=== PATIENT | male | born 1935 | race Caucasian/White ===

== ENCOUNTER 2016-11-24 09:22 | Emergency (ER) | payer MEDICARE, BC ==
--- NOTE | 2016-11-24 09:49 | ED ---
Lower Extremity Injury HPI - General Chief Complaint: Extremity Injury, Lower Stated Complaint: Fall Time Seen by Provider: 11/24/16 09:37 Source: patient, RN notes reviewed Mode of arrival: ambulatory Limitations: no limitations - History of Present Illness Initial Comments: Patient is an 81-year-old male presents to the emergency room for evaluation of right ankle pain and swelling. Patient states last Friday he slipped on the ice and twisted his right ankle. Patient states that he continued to walk on his ankle over the past week. Patient states that the pain is not getting any better. Patient states pain is worse when he puts weight on his right leg or moves his ankle from side to side. Patient denies any pain when he is elevating his leg or resting. Patient states he's been taking aspirin with little relief of symptoms. Patient denies any other injuries during incident. Patient denies head trauma, loss consciousness, neck pain, headache or dizziness. Patient denies any numbness or tingling in his toes. - Related Data Home Medications Medication Instructions Recorded Confirmed Aspirin 1 tab PO DAILY 11/24/16 11/24/16 Losartan [Cozaar] 1 tab PO DAILY 11/24/16 11/24/16 Allergies Allergy/AdvReac Type Severity Reaction Status Date / Time codeine AdvReac Unknown Verified 11/24/16 09:31 Penicillins AdvReac Unknown Verified 11/24/16 09:31 Review of Systems ROS Statement: Those systems with pertinent positive or pertinent negative responses have been documented in the HPI. ROS Other: All systems not noted in ROS Statement are negative. Past Medical History Past Medical History: No Reported History History of Any Multi-Drug Resistant Organisms: None Reported Past Surgical History: Appendectomy, Joint Replacement Additional Past Surgical History / Comment(s): anueurysm x2, aaa, kidney stones , cataract Past Psychological History: No Psychological Hx Reported Smoking Status: Former smoker Past Alcohol Use History: Occasional Past Drug Use History: None Reported General Exam - General Exam Comments Initial Comments: Sitting in exam room in no acute distress. Limitations: no limitations General appearance: alert, in no apparent distress Head exam: Present: atraumatic, normocephalic, normal inspection Eye exam: Present: normal appearance ENT exam: Present: normal exam Neck exam: Present: normal inspection Respiratory exam: Present: normal lung sounds bilaterally. Absent: respiratory distress Cardiovascular Exam: Present: regular rate, normal rhythm, normal heart sounds Right Foot/Toe exam: Present: full ROM, tenderness (Lateral malleolus), swelling ( Lateral malleolus), ecchymosis (Lateral malleolus). Absent: normal inspection Neurovascular tendon exam: Present: no vascular compromise. Absent: pulse deficit (2+ dorsal pedal and posterior tibial pulses), abnormal cap refill ( Capillary refill less than 2 seconds) Back exam: Present: normal inspection Neurological exam: Present: alert, oriented X3, CN II-XII intact Psychiatric exam: Present: normal affect, normal mood Skin exam: Present: warm, dry, intact, normal color. Absent: rash Course Vital Signs 11/24/16 09:32 Temperature 97.3 F L Pulse Rate 60 Respiratory 18 Rate Blood Pressure 186/71 Procedures - Orthopedic Splinting/Casting Injury #1 Side: right Lower Extremity Injury Location: ankle Lower Extremity Immobilizer: posterior splint (OCL posterior splint placed. 4 x 15". Neurovascular function assessed and intact.) Other Orthopedic Equipment: crutches Medical Decision Making - Medical Decision Making Patient is an 81-year-old male presents emergency room for evaluation of right ankle pain.Right ankle x-ray: Small bone fragments seen below the lateral malleolus, anterior to the tibiotalar joint and posterior to the distal tibia. Ligamentous avulsion fracture fragments are considered. There is underlying tibiotalar joint effusion and diffuse soft tissue swelling. 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 No acute osseous abnormality. (Per radiology). Patient placed in an OCL splint and advised to [id number] until follow-up with thoracic medicine specialist. Patient states he understands everything that was discussed with him. Return parameters discussed. Case discussed with Dr. Ayala. - Radiology Data Radiology results: report reviewed, image reviewed Disposition Clinical Impression: Avulsion fracture of distal fibula Disposition: HOME SELF-CARE Condition: Good Instructions: Avulsion Fracture (ED), Ankle Fracture (ED) Additional Instructions: Rest, elevate and ice on and off for 10-15 minutes for the next 24-48 hours. Do not get splint wet. Do not remove splint until follow-up with thoracic medicine specialist. Do not put weight on right leg. Take Tylenol or Motrin as needed for pain. Please follow-up with thoracic medicine specialist on Friday. If new symptoms develop or symptoms worsen, please return to the ER. Referrals: Jassi Perez MD [Primary Care Provider] - 1-2 days Santiago Bryan DO [Doctor of Osteopathic Medicine] - 1-2 days Time of Disposition: 10:58
--- NOTE | 2016-11-24 10:48 | XR ---
EXAMINATION TYPE: XR ankle complete 3 views RT, XR foot complete 3 views RT DATE OF EXAM: 11/24/2016 10:24 AM COMPARISON: NONE HISTORY: 81-year-old male with pain FINDINGS: Ankle: There is small bony fragments measuring 3 mm below the lateral malleolus, tiny fragments measuring up to 2 mm, anteriorly, 6 mm bone fragment seen posteriorly. Underlying tibiotalar joint effusion. Ther e is preservation of the distal tibiofibular overlap. Small plantar calcaneal spur. Foot: Hallux valgus deformity with moderate degenerative change at the first MTP joint. Hammertoe deformiti es are also present. No acute fracture or dislocation. IMPRESSION: 1. Small bone fragments seen below the lateral malleolus (3 mm), anterior to the tibiotalar joint (2 mm), and posterior to the distal tibia (6 mm). Ligamentous avulsion fracture fragments are considered . 2. There is underlying tibiotalar joint effusion and diffuse soft tissue swelling. 3. 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 No acute osse ous abnormality.
[2016-11-24 11:11] VITALS: BP 184/76; PULSE 51; RESP 16; TEMP 97.2
== END 2016-11-24 11:10 | disposition home or self-care (01) ==
LOC: EC 09:22
DX: S82.491A Other fracture of shaft of right fibula, initial encounter for closed fracture (principal); Z79.899 Other long term (current) drug therapy; Z79.82 Long term (current) use of aspirin; Z88.0 Allergy status to penicillin; Z88.5 Allergy status to narcotic agent; Z87.891 Personal history of nicotine dependence; W00.0XXA Fall on same level due to ice and snow, initial encounter
CPT/HCPCS: 29515; 99284

== ENCOUNTER → 2018-10-05 | Outpatient (CLI) | payer MEDICARE, BC ==
--- NOTE | 2018-10-05 09:15 | US ---
EXAMINATION TYPE: US duplex aorta DATE OF EXAM: 10/05/2018 COMPARISON: NONE CLINICAL HISTORY: I71.4 Abdominal aortic aneurysm, without rupture. h/o AAA and surgical repair dista lly EXAM MEASUREMENTS: Abdominal Aorta: Proximal: 2.1 x 2.2cm Mid: not seen Distal: 3.0 x 3.2cm Bifurcation: 0.9cm 1.0cm Limited views due to bowel gas IMPRESSION: The exam is slightly limited secondary to overlying bowel gas as the mid abdominal aorta is not visualized. Distal abdominal aortic aneurysm measures 3.0 x 3.2 cm and terminates at the aorto iliac bifurcation. No extent into the common iliac vasculature. CTA could assess for endoleak in this patient with prior surgically repaired abdominal aortic aneurysm.
== END ==
LOC: RADUSWWP 07:44
PROVIDERS: ATTEND Family Medicine
DX: I71.4 Abdominal aortic aneurysm, without rupture (principal)
CPT/HCPCS: 93979

== ENCOUNTER → 2019-07-15 | Outpatient (CLI) | payer MEDICARE, BC ==
[~2019-07-15] MED LIST: REGADENOSON 0.4 MG/5 ML SYRINGE IV ONE
--- NOTE | 2019-07-15 12:13 | NM ---
EXAMINATION TYPE: NM stress lexiscan cardiolite DATE OF EXAM: 07/15/2019 COMPARISON: NONE HISTORY: Abnormal EKG TECHNIQUE: After the intravenous administration of 10.04 mCi Tc 99m Sestamibi - Cardiolite resting S PECT images acquired 45 minutes post injection. The patient received 0.4mg Lexiscan, 24.3 mCi Tc 99m Sestamibi - Stress images obtained [address] injection FINDINGS: Review of stress and rest SPECT images demonstrates no distinct perfusion abnormality. Gated analysi s shows normal wall motion with an estimated left ventricular ejection fraction of 63 %. IMPRESSION: No scintigraphic evidence for reversible ischemia.
--- NOTE | 2019-07-15 13:03 | EST ---
EXERCISE STRESS DATE OF SERVICE: 07/15/2019 AGE: 84 SEX: Male HT: 6'0" WT: 180 pounds PROTOCOL: Lexiscan Cardiolite STAGE: DURATION OF EXERCISE: HEART RATE REST: 44 BLOOD PRESSURE REST: 152/96 MAXIMUM HEART RATE ACHIEVED: 60 MAXIMUM BLOOD PRESSURE: 152/96 85% MPHR: 100% MPHR: METS: INDICATIONS: Chest pain. CLINICAL INFORMATION: STRESS DATA: Heart rate 44, pressure is 152/96 mmHg. Baseline EKG showed sinus mechanism. The 0.4 mg of Lexiscan given over 15 seconds per protocol. Max heart rate was 60 beats per minute and maximum pressure was 152/96 mmHg. Clinically the patient did not have any symptoms of chest pain or discomfort and the EKG did not show any significant ST or T-wave abnormalities concerning for ischemia. CONCLUSION: 1. Nondiagnostic electrocardiogram stress testing in response to Lexiscan. 2. Please follow up on the Cardiolite portion on a separate report from Radiology Department. MMODL / IJN: [id number] /
== END | disposition home or self-care (01) ==
LOC: RADNMMAIN 08:00
PROVIDERS: ATTEND Family Medicine
DX: R94.31 Abnormal electrocardiogram [ECG] [EKG] (principal)
CPT/HCPCS: 93017; 78452; A9500; J2785

== ENCOUNTER 2019-12-27 18:09 | Observation (INO) | payer MEDICARE, BC ==
[2019-12-27] MEDS ORDERED: NITROGLYCERIN OINT 1 INCH/GM PACKET TOPICAL STA (18:25)
[2019-12-27] MEDS ORDERED: ASPIRIN 81 MG PO STA (18:25)
--- NOTE | 2019-12-27 18:28 | ED ---
Chest Pain HPI - General Chief Complaint: Chest Pain Stated Complaint: left arm pain Time Seen by Provider: 12/27/19 18:19 Source: patient, family Mode of arrival: ambulatory Limitations: no limitations - History of Present Illness Initial Comments: This 84-year-old white male presents with a complaint of some left arm pain. This is described as a an achiness. This was into his shoulder going down his entire left arm and radiating up into his left jaw. He denies any chest pain but did have some mild shortness of breath. This occurred shortly prior to arrival and lasted approximately 30 minutes and has now resolved. He denies any known previous cardiac disease. His last stress test was approximately 7 years ago. He's never had a heart catheterization. He relates that he was told by his primary doctor that he may have had a heart attack in the past per his EKG. He denies any leg pain or calf swelling. No other complaints or modifying factors. - Related Data Home Medications Medication Instructions Recorded Confirmed Losartan [Cozaar] 50 mg PO DAILY 11/24/16 12/27/19 Acetaminophen Tab [Tylenol] 325 mg PO Q8H PRN 12/27/19 12/27/19 Brinzolamide/Brimonidine Tart 1 drop BOTH EYES BID 12/27/19 12/27/19 [Simbrinza 1%-0.2% Eye Drops] Ibuprofen [Motrin Ib] 200 mg PO Q8H PRN 12/27/19 12/27/19 Allergies Allergy/AdvReac Type Severity Reaction Status Date / Time codeine AdvReac Unknown Verified 12/27/19 18:50 Penicillins AdvReac Unknown Verified 12/27/19 18:50 Review of Systems ROS Statement: Those systems with pertinent positive or pertinent negative responses have been documented in the HPI. ROS Other: All systems not noted in ROS Statement are negative. Past Medical History Past Medical History: Hypertension, Myocardial Infarction ([place]) Additional Past Medical History / Comment(s): AAA REPAIR, KIDNEY STONES, History of Any Multi-Drug Resistant Organisms: None Reported Past Surgical History: Appendectomy, Joint Replacement, Orthopedic Surgery Additional Past Surgical History / Comment(s): anueurysm x2, aaa, kidney stones, cataract, BILATERAL KNEE REPLACEMENT Past Psychological History: No Psychological Hx Reported Smoking Status: Former smoker Past Alcohol Use History: Occasional Past Drug Use History: None Reported General Exam - General Exam Comments Initial Comments: GENERAL: The patient is well nourished and well hydrated. VITAL SIGNS: Heart rate, blood pressure, respiratory rate reviewed as recorded in nurse's notes. EYES: Pupils are round and reactive. Extraocular movements are intact. No conjunctival / lid redness or swelling. ENT: No external evidence of injury, swelling, or ecchymosis. Airway is patent. Throat is clear. NECK: Nontender. No swelling or evidence of injury. No subcutaneous emphysema. Trachea is midline. No thyroid mass. HEART: Regular rate and rhythm. Good peripheral pulses. LUNGS/CHEST: Breath sounds clear and equal bilaterally. No rales, rhonchi, or wheezes. No ecchymosis, subcutaneous emphysema, or tenderness. ABDOMEN: Abdomen soft without tenderness. No palpable masses or organomegaly. No peritoneal signs. No abdominal wall swelling or ecchymosis. EXTREMITIES: No extremity tenderness. Normal muscle tone and function. No thoracolumbar tenderness. NEUROLOGIC: Sensation is grossly intact. Cranial nerve exam reveals face is symmetrical, tongue is midline, speech is clear. SKIN: No abrasions or ecchymosis is noted. No induration or masses noted. PSYCHIATRIC: Alert and oriented. Appropriate behavior and judgment. Limitations: no limitations Course Vital Signs 12/27/19 12/27/19 12/27/19 18:11 19:01 20:00 Temperature 97.7 F Pulse Rate 79 56 L Pulse Rate [ 52 L Staff Psychologist ] Respiratory 16 18 Rate Blood Pressure 127/79 191/95 O2 Sat by Pulse 95 96 Oximetry 12/27/19 20:02 Temperature 98.0 F Pulse Rate 50 L Pulse Rate [ Staff Psychologist ] Respiratory 20 Rate Blood Pressure 176/87 O2 Sat by Pulse 98 Oximetry Chest Pain MDM - MDM The patient was seen and examined. All diagnostics are reviewed and IV is established. He received some aspirin as well as some Nitropaste placed. He is placed on the monitor technician no ectopy is identified. The EKG shows a normal sinus rhythm at a rate of 78. There is a left anterior fascicular block. There are also some left ventricular hypertrophy. There is a possible old anterior infarct. There is no acute ST-T wave changes noted. The CO intervals 176, respiration is 118, and the QTC intervals 466. The laboratory is reviewed and overall is unremarkable. The chest x-ray did not show any acute abnormalities. He is in no pain on recheck. Overall, it is felt as though he would benefit from admission to the hospital. He relates that the last time he had a stress test was approximately 7 years ago. It is felt as though his left shoulder and jaw pain certainly could be related to some unstable angina. An addition, his blood pressure is elevated and he receives 20 mg of labetalol IV. The case is discussed with Dr. Perez and he is agreeable with admission as well. Disposition Clinical Impression: Left arm pain, Unstable angina, Hypertensive crisis Disposition: ADMITTED IP TO THIS [facility] Condition: Fair Is patient prescribed a controlled substance at d/c from ED?: No Time of Disposition: 21:38 Decision Date: 12/27/19 Decision Time: 21:38
[2019-12-27 19:09] LABS: Basophils % (A) 1 %; Eosinophils # (A) 0.3 k/uL (0-0.7); Eosinophils % (A) 8 %; HCT 38.9 % (39.0-53.0); HGB 12.7 gm/dL (13.0-17.5); Lymphocytes # (A) 0.9 k/uL (1.0-4.8); Lymphocytes % (A) 21 %; MCH 29.9 pg (25.0-35.0); MCHC 32.7 g/dL (31.0-37.0); MCV 91.5 fL (80.0-100.0); Mean Platelet Volume 7.4; Monocytes # (A) 0.3 k/uL (0-1.0); Monocytes % (A) 7 %; Neutrophils # (A) 2.5 k/uL (1.3-7.7); Neutrophils % (A) 61 %; Platelet Count 195 k/uL (150-450); RBC 4.25 m/uL (4.30-5.90); RDW 13.7 % (11.5-15.5); WBC 4.2 k/uL (3.8-10.6)
[2019-12-27 19:23] LABS: Albumin 3.7 g/dL (3.5-5.0); Calcium 8.8 mg/dL (8.4-10.2); Potassium 4.2 mmol/L (3.5-5.1); Total Bilirubin 0.5 mg/dL (0.2-1.3); Total Protein 6.4 g/dL (6.3-8.2)
[2019-12-27 19:39] LABS: INR 0.9 (<1.2); Partial Thromboplastin Time 23.2 sec (22.0-30.0); Prothrombin Time 9.8 sec (9.0-12.0)
--- NOTE | 2019-12-27 19:47 | XR ---
EXAMINATION TYPE: XR chest 2V DATE OF EXAM: 12/27/2019 COMPARISON: 04/16/2012 HISTORY: Rib pain TECHNIQUE: FINDINGS: There is large hiatal hernia. Lungs are clear of infiltrate. Thoracic aorta is atheromatous . There are chest leads. There is no evidence of pleural effusion. There is mild anterior wedging of T7 vertebra 25%. IMPRESSION: Large hiatal hernia. Mild compression fracture T7 is a change compared to old exam. Dee l heart.
[2019-12-27] MEDS ORDERED: hydrALAZINE HCL 20 MG/ML 1 ML VIAL IVP PRN (22:00)
[2019-12-27] MEDS ORDERED: NITROGLYCERIN SL TABS 0.4 MG TAB SUBLINGUAL PRN (22:00)
[2019-12-27] MEDS ORDERED: ACETAMINOPHEN TAB 325 MG TAB PO PRN (22:30)
[2019-12-28] MEDS: NITROGLYCERIN OINT 1 INCH/GM PACKET TOPICAL SCH ×3 (03:59→13:05)
[2019-12-28] MEDS ORDERED: IBUPROFEN 200 MG TAB PO PRN (06:00)
[2019-12-28 07:01] LABS: Cholesterol 165 mg/dL (<200); HDL Cholesterol 36 mg/dL (40-60); LDL Cholesterol,Calculated 118 mg/dL (0-99); Triglycerides 53 mg/dL (<150)
[2019-12-28] MEDS ORDERED: DORZOLAMIDE HCL 2% DROPS 10 ML BTL BOTH EYES SCH (09:00)
[2019-12-28] MEDS ORDERED: ASPIRIN 325 MG TAB PO SCH (09:00)
[2019-12-28] MEDS ORDERED: ENOXAPARIN 40 MG/0.4 ML SYRINGE SQ SCH (09:00)
[2019-12-28] MEDS ORDERED: METOPROLOL TARTRATE 25 MG TAB PO SCH (09:00)
[2019-12-28] MEDS ORDERED: BRIMONIDINE TARTRATE 0.2% DROPS 5 ML BTL BOTH EYES SCH (09:00)
[2019-12-28] MEDS: LOSARTAN 50 MG TAB PO SCH (09:16)
--- NOTE | 2019-12-28 11:00 | ECHOF ---
Referral Reason:cp MEASUREMENTS -------- HEIGHT: 182.9 cm WEIGHT: 79.4 kg BP: 136/78 RVIDd: 3.2 cm (< 3.3) IVSd: 1.2 cm (0.6 - 1.1) LVIDd: 5.0 cm (3.9 - 5.3) LVPWd: 1.5 cm (0.6 - 1.1) IVSs: 1.5 cm LVIDs: 3.9 cm LVPWs: 1.4 cm LA Diam: 5.5 cm (2.7 - 3.8) LAESV Index (A-L): 42.37 ml/m Ao Diam: 3.2 cm (2.0 - 3.7) AV Cusp: 1.6 cm (1.5 - 2.6) MV EXCURSION: 18.742 mm (> 18.000) MV EF SLOPE: 49 mm/s (70 - 150) EPSS: 0.3 cm MV E Fuentes: 0.61 m/s MV DecT: 285 ms MV A Fuentes: 0.85 m/s MV E/A Ratio: 0.72 RAP: 5.00 mmHg RVSP: 38.58 mmHg FINDINGS -------- Sinus rhythm. This was a technically good study. The left ventricular size is normal. There is mild concentric left ventricular hypertrophy. Overa ll left ventricular systolic function is low-normal with, an EF between 50 - 55 %. The diastolic fi lling pattern is normal for the age of the patient 12.21. The right ventricle is normal in size. The left atrium is markedly dilated. LA is severely dilated >40 ml/m2 The right atrial size is normal. There is mild aortic valve sclerosis. There is no evidence of aortic regurgitation. Mild mitral annular calcification present. Mild mitral regurgitation is present. Mild tricuspid regurgitation present. There is mild pulmonary hypertension. The right ventricular systolic pressure, as measured by Doppler, is 38.58mmHg. There is no pulmonic regurgitation present. The aortic root size is normal. There is no pericardial effusion. CONCLUSIONS -------- 1. Sinus rhythm. 2. This was a technically good study. 3. The left ventricular size is normal. 4. There is mild concentric left ventricular hypertrophy. 5. Overall left ventricular systolic function is low-normal with, an EF between 50 - 55 %. 6. The diastolic filling pattern is normal for the age of the patient 12.21 7. The right ventricle is normal in size. 8. The left atrium is markedly dilated. 9. LA is severely dilated >40 ml/m2 10. The right atrial size is normal. 11. There is mild aortic valve sclerosis. 12. Mild mitral annular calcification present. 13. Mild mitral regurgitation is present. 14. Mild tricuspid regurgitation present. 15. There is mild pulmonary hypertension. 16. The right ventricular systolic pressure, as measured by Doppler, is 38.58mmHg. 17. There is no pulmonic regurgitation present. 18. The aortic root size is normal. 19. There is no pericardial effusion. ESCROW SECRETARY: Kelly Harris RDCS
--- NOTE | 2019-12-28 13:24 | P.CRDCN ---
History of Present Illness History of present illness: This is Tierra Neal PA-C dictating a consult on this patient The patient was interviewed and examined by me as well as by Dr. Land Case discussed with Dr. Land and he agrees with the plan of care HPI Patient is an 84-year-old male with a history of hypertension, AAA status post surgical repair, and former smoker who presented with complaints of arm pain. 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 He states that for the last 3 days he has had intermittent left arm pain. He describes it as an achiness. Denies any radiation. He could not identify any triggering or relieving factors. He does admit to associated "heavy breathing". No chest pain. He has had disco mfort like this before but it has never been this severe. He has never sought evaluation and treatment for it before. The pain became more severe than it had been in the past and he presented for evaluation. Upon presentation his pulse was in the 60s and his blood pressure was 186/71. EKG shows sinus mechanism with left anterior fascicular block, LVH, no acute ST or T-wave abnormalities. Chest x-ray shows a large hiatal hernia, mild compression fracture of T7. Echocardiogram shows LV systolic function low normal, EF 50-55%. Troponins negative 3. Patient seen and examined resting in bed. States his arm pain has resolved he would like to go home. Denies any chest pain or shortness of breath currently. He denies any history of diabetes or dyslipidemia He is a former smoker and quit years ago ROS: No fevers, chills or rigors, no cough, phlegm or expectoration, no nausea, vomiting or diarrhea, no hematuria, dysuria, Positive for left arm pain no strokes or seizures, no skin lesions. EXAMINATION: Patient is afebrile, pulse in the 50s, respirations 18, blood pressure 147/67, oxygen saturation 97% on room air Patient seen and examined resting in bed, in no acute distress Lungs are clear to auscultation bilaterally Heart sounds are soft, heart is regular, no audible murmurs No elevated JVD No lower extremity edema REVIEW OF LABS, ECG & MEDICAL DATA WBC 4.2, hemoglobin 12.7, platelets 195, potassium 4.2, BUN 23, creatinine 0.96 Troponin negative 3 LDL 118 Lexiscan stress test in July 2019 was negative for reversible ischemia IMPRESSION / ASSESSMENT: Intermittent left arm discomfort with associated shortness of breath, no acute changes on EKG, troponins negative 3, currently pain-free Hypertension, blood pressure has been elevated Dyslipidemia Former smoker AAA status post surgical repair Echocardiogram showing EF 50-55% PLAN: Start atorvastatin 40 mg daily Increase losartan to 75 mg daily Patient is clear for discharge from a cardiac standpoint with outpatient follow- up Past Medical History Past Medical History: Hypertension, Myocardial Infarction ([place]) Additional Past Medical History / Comment(s): AAA REPAIR, KIDNEY STONES, History of Any Multi-Drug Resistant Organisms: None Reported Past Surgical History: Appendectomy, Joint Replacement, Orthopedic Surgery Additional Past Surgical History / Comment(s): anueurysm x2, aaa, kidney stones, cataract, BILATERAL KNEE REPLACEMENT Past Psychological History: No Psychological Hx Reported Smoking Status: Former smoker Past Alcohol Use History: Occasional Past Drug Use History: None Reported Medications and Allergies Home Medications Medication Instructions Recorded Confirmed Type Losartan [Cozaar] 50 mg PO DAILY 11/24/16 12/27/19 History Acetaminophen Tab [Tylenol] 325 mg PO Q8H PRN 12/27/19 12/27/19 History Brinzolamide/Brimonidine Tart 1 drop BOTH EYES BID 12/27/19 12/27/19 History [Simbrinza 1%-0.2% Eye Drops] Ibuprofen [Motrin Ib] 200 mg PO Q8H PRN 12/27/19 12/27/19 History Allergies Allergy/AdvReac Type Severity Reaction Status Date / Time codeine AdvReac Unknown Verified 12/27/19 18:50 Penicillins AdvReac Unknown Verified 12/27/19 18:50 Physical Exam Vitals: Vital Signs Temp Pulse Pulse Resp BP Pulse Ox 12/28/19 09:30 54 L 147/67 97 12/28/19 09:00 55 L 148/70 97 12/28/19 08:30 55 L 154/71 97 12/28/19 08:00 53 L 96 12/28/19 07:30 51 L 164/80 96 12/28/19 07:29 97.9 F 56 L 18 164/80 97 12/28/19 05:33 97.6 F 54 L 18 136/74 96 12/28/19 02:45 56 L 20 130/63 96 12/28/19 02:00 54 L 20 142/90 95 12/28/19 01:00 54 L 20 126/53 96 12/28/19 00:00 52 L 20 142/60 95 12/27/19 23:49 52 L 12/27/19 23:47 20 12/27/19 23:38 56 L 20 155/75 98 12/27/19 22:51 58 L 20 158/78 97 12/27/19 22:15 60 18 187/97 95 12/27/19 20:02 98.0 F 50 L 20 176/87 98 12/27/19 20:00 52 L 12/27/19 19:01 56 L 18 191/95 96 12/27/19 18:11 97.7 F 79 16 127/79 95 Intake and Output 12/27/19 12/28/19 12/28/19 22:59 06:59 14:59 Output Total 600 Balance -600 Output: Urine 600 Other: Weight 79.379 kg Results 12/27/19 18:50 12/27/19 18:50 Cardiac Enzymes 12/27/19 12/27/19 12/27/19 Range/Units 18:50 18:50 18:50 WBC 4.2 (3.8-10.6) k/uL RBC 4.25 L (4.30-5.90) m/uL Hgb 12.7 L (13.0-17.5) gm/dL Hct 38.9 L (39.0-53.0) % MCV 91.5 (80.0-100.0) fL MCH 29.9 (25.0-35.0) pg MCHC 32.7 (31.0-37.0) g/dL RDW 13.7 (11.5-15.5) % Plt Count 195 (150-450) k/uL Neutrophils % 61 % Lymphocytes % 21 % Monocytes % 7 % Eosinophils % 8 % Basophils % 1 % Neutrophils # 2.5 (1.3-7.7) k/uL Lymphocytes # 0.9 L (1.0-4.8) k/uL Monocytes # 0.3 (0-1.0) k/uL Eosinophils # 0.3 (0-0.7) k/uL Basophils # 0.0 (0-0.2) k/uL PT 9.8 (9.0-12.0) sec INR 0.9 (<1.2) APTT 23.2 (22.0-30.0) sec Sodium 142 (137-145) mmol/L Potassium 4.2 (3.5-5.1) mmol/L Chloride 109 H (98-107) mmol/L Carbon Dioxide 25 (22-30) mmol/L Anion Gap 8 mmol/L BUN 23 H (9-20) mg/dL Creatinine 0.96 (0.66-1.25) mg/dL Est GFR (CKD-EPI)AfAm 85 (>60 ml/min/1.73 sqM) Est GFR (CKD-EPI)NonAf 73 (>60 ml/min/1.73 sqM) Glucose 101 H (74-99) mg/dL Calcium 8.8 (8.4-10.2) mg/dL Magnesium 2.0 (1.6-2.3) mg/dL Total Bilirubin 0.5 (0.2-1.3) mg/dL AST 22 (17-59) U/L ALT 12 (4-49) U/L Alkaline Phosphatase 107 (38-126) U/L Troponin I (0.000-0.034) ng/mL Total Protein 6.4 (6.3-8.2) g/dL Albumin 3.7 (3.5-5.0) g/dL Triglycerides (<150) mg/dL Cholesterol (<200) mg/dL LDL Cholesterol, Calc (0-99) mg/dL HDL Cholesterol (40-60) mg/dL 12/27/19 12/28/19 12/28/19 Range/Units 18:50 01:46 06:28 WBC (3.8-10.6) k/uL RBC (4.30-5.90) m/uL Hgb (13.0-17.5) gm/dL Hct (39.0-53.0) % MCV (80.0-100.0) fL MCH (25.0-35.0) pg MCHC (31.0-37.0) g/dL RDW (11.5-15.5) % Plt Count (150-450) k/uL Neutrophils % % Lymphocytes % % Monocytes % % Eosinophils % % Basophils % % Neutrophils # (1.3-7.7) k/uL Lymphocytes # (1.0-4.8) k/uL Monocytes # (0-1.0) k/uL Eosinophils # (0-0.7) k/uL Basophils # (0-0.2) k/uL PT (9.0-12.0) sec INR (<1.2) APTT (22.0-30.0) sec Sodium (137-145) mmol/L Potassium (3.5-5.1) mmol/L Chloride (98-107) mmol/L Carbon Dioxide (22-30) mmol/L Anion Gap mmol/L BUN (9-20) mg/dL Creatinine (0.66-1.25) mg/dL Est GFR (CKD-EPI)AfAm (>60 ml/min/1.73 sqM) Est GFR (CKD-EPI)NonAf (>60 ml/min/1.73 sqM) Glucose (74-99) mg/dL Calcium (8.4-10.2) mg/dL Magnesium (1.6-2.3) mg/dL Total Bilirubin (0.2-1.3) mg/dL AST (17-59) U/L ALT (4-49) U/L Alkaline Phosphatase (38-126) U/L Troponin I <0.012 <0.012 <0.012 (0.000-0.034) ng/mL Total Protein (6.3-8.2) g/dL Albumin (3.5-5.0) g/dL Triglycerides (<150) mg/dL Cholesterol (<200) mg/dL LDL Cholesterol, Calc (0-99) mg/dL HDL Cholesterol (40-60) mg/dL 12/28/19 Range/Units 06:28 WBC (3.8-10.6) k/uL RBC (4.30-5.90) m/uL Hgb (13.0-17.5) gm/dL Hct (39.0-53.0) % MCV (80.0-100.0) fL MCH (25.0-35.0) pg MCHC (31.0-37.0) g/dL RDW (11.5-15.5) % Plt Count (150-450) k/uL Neutrophils % % Lymphocytes % % Monocytes % % Eosinophils % % Basophils % % Neutrophils # (1.3-7.7) k/uL Lymphocytes # (1.0-4.8) k/uL Monocytes # (0-1.0) k/uL Eosinophils # (0-0.7) k/uL Basophils # (0-0.2) k/uL PT (9.0-12.0) sec INR (<1.2) APTT (22.0-30.0) sec Sodium (137-145) mmol/L Potassium (3.5-5.1) mmol/L Chloride (98-107) mmol/L Carbon Dioxide (22-30) mmol/L Anion Gap mmol/L BUN (9-20) mg/dL Creatinine (0.66-1.25) mg/dL Est GFR (CKD-EPI)AfAm (>60 ml/min/1.73 sqM) Est GFR (CKD-EPI)NonAf (>60 ml/min/1.73 sqM) Glucose (74-99) mg/dL Calcium (8.4-10.2) mg/dL Magnesium (1.6-2.3) mg/dL Total Bilirubin (0.2-1.3) mg/dL AST (17-59) U/L ALT (4-49) U/L Alkaline Phosphatase (38-126) U/L Troponin I (0.000-0.034) ng/mL Total Protein (6.3-8.2) g/dL Albumin (3.5-5.0) g/dL Triglycerides 53 (<150) mg/dL Cholesterol 165 (<200) mg/dL LDL Cholesterol, Calc 118 H (0-99) mg/dL HDL Cholesterol 36 L (40-60) mg/dL Coagulation 12/27/19 Range/Units 18:50 PT 9.8 (9.0-12.0) sec APTT 23.2 (22.0-30.0) sec Lipids 12/28/19 Range/Units 06:28 Triglycerides 53 (<150) mg/dL Cholesterol 165 (<200) mg/dL HDL Cholesterol 36 L (40-60) mg/dL CBC 12/27/19 Range/Units 18:50 WBC 4.2 (3.8-10.6) k/uL RBC 4.25 L (4.30-5.90) m/uL Hgb 12.7 L (13.0-17.5) gm/dL Hct 38.9 L (39.0-53.0) % Plt Count 195 (150-450) k/uL Comprehensive Metabolic Panel 12/27/19 Range/Units 18:50 Sodium 142 (137-145) mmol/L Potassium 4.2 (3.5-5.1) mmol/L Chloride 109 H (98-107) mmol/L Carbon Dioxide 25 (22-30) mmol/L BUN 23 H (9-20) mg/dL Creatinine 0.96 (0.66-1.25) mg/dL Glucose 101 H (74-99) mg/dL Calcium 8.8 (8.4-10.2) mg/dL AST 22 (17-59) U/L ALT 12 (4-49) U/L Alkaline Phosphatase 107 (38-126) U/L Total Protein 6.4 (6.3-8.2) g/dL Albumin 3.7 (3.5-5.0) g/dL Current Medications Generic Name Dose Route Start Last Admin Trade Name Freq PRN Reason Stop Dose Admin Acetaminophen 325 mg 12/27/19 22:30 Tylenol Tab PO Q8H PRN Pain Aspirin 325 mg 12/28/19 09:00 12/28/19 09:17 Aspirin PO 325 mg DAILY [facility] Administration Atorvastatin Calcium 40 mg 12/28/19 21:00 Lipitor PO HS [facility] Brimonidine Tartrate 1 drops 12/28/19 09:00 Alphagan P 0.2% Ophth Soln BOTH EYES BID [facility] Dorzolamide HCl 1 drops 12/28/19 09:00 Trusopt BOTH EYES BID [facility] Enoxaparin Sodium 40 mg 12/28/19 09:00 12/28/19 09:15 Lovenox SQ 40 mg DAILY [facility] Administration Hydralazine HCl 10 mg 12/27/19 22:00 12/27/19 22:18 Apresoline IVP 10 mg Q4H PRN Administration Hypertension Ibuprofen 200 mg 12/28/19 06:00 Advil PO Q8H PRN Pain Losartan Potassium 75 mg 12/29/19 09:00 Cozaar PO DAILY [facility] Metoprolol Tartrate 25 mg 12/28/19 09:00 12/28/19 09:16 Lopressor PO 25 mg BID [facility] Administration Nitroglycerin 0.4 mg 12/27/19 22:00 Nitrostat SUBLINGUAL Q5M PRN Chest Pain Nitroglycerin 1 inch 12/28/19 00:00 12/28/19 08:21 Nitro-Bid Oint TOPICAL Not Given Q6HR MAURA Intake and Output 12/27/19 12/28/19 12/28/19 22:59 06:59 14:59 Output Total 600 Balance -600 Output: Urine 600 Other: Weight 79.379 kg 12/27/19 18:50 12/27/19 18:50
[2019-12-28 15:51] VITALS: BP 137/85; RESP 16
--- NOTE | 2019-12-28 16:30 | P.HPIM ---
History of Present Illness 84-year-old male presented the emergency room with complaints of left arm pain after discussion with family was convinced go to the emergency room. Troponins have been negative 3 echo low normal EF 50-55%. Patient also has hypertension patient has history of coronary disease with [place] Review of Systems Cardiovascular: Reports chest pain Past Medical History Past Medical History: Eye Disorder, Hypertension, Myocardial Infarction ([place]), Osteoarthritis (OA), Prostate Disorder, Renal Disease, Vascular Disorder Additional Past Medical History / Comment(s): AAA with repair x2, nephrolithiasis with surgical removals, [place] age unknown-found on EKG, BPH, arthritis bilateral knees with surgery, bilateral glaucoma Last Myocardial Infarction Date:: unkn History of Any Multi-Drug Resistant Organisms: None Reported Past Surgical History: Appendectomy, Joint Replacement, Tonsillectomy Additional Past Surgical History / Comment(s): AAA repair x2, surgeries for kidney stone removals, bilateral cataract removals, colonoscopies, bilateral total knee replacements. Past Anesthesia/Blood Transfusion Reactions: No Reported Reaction Smoking Status: Former smoker - Past Family History Father Family Medical History: Myocardial Infarction ([place]) Additional Family Medical History / Comment(s): Father had a [place] in his 70s. Mother Family Medical History: Musculoskeletal Disorder, Neurologic Disorder Additional Family Medical History / Comment(s): Mother had parkinsons. Medications and Allergies Home Medications Medication Instructions Recorded Confirmed Type Losartan [Cozaar] 50 mg PO DAILY 11/24/16 12/27/19 History Acetaminophen Tab [Tylenol] 325 mg PO Q8H PRN 12/27/19 12/27/19 History Brinzolamide/Brimonidine Tart 1 drop BOTH EYES BID 12/27/19 12/27/19 History [Simbrinza 1%-0.2% Eye Drops] Ibuprofen [Motrin Ib] 200 mg PO Q8H PRN 12/27/19 12/27/19 History Allergies Allergy/AdvReac Type Severity Reaction Status Date / Time codeine AdvReac Unknown Verified 12/27/19 18:50 Penicillins AdvReac Unknown Verified 12/27/19 18:50 Physical Exam Vitals: Vital Signs Temp Pulse Pulse Resp BP Pulse Ox 12/28/19 15:50 59 L 16 137/85 98 12/28/19 14:02 55 L 18 169/72 98 12/28/19 13:00 53 L 17 174/80 98 12/28/19 12:00 51 L 18 166/79 97 12/28/19 11:00 50 L 17 148/69 97 12/28/19 10:00 52 L 18 163/82 96 12/28/19 09:30 54 L 147/67 97 12/28/19 09:00 55 L 148/70 97 12/28/19 08:30 55 L 154/71 97 12/28/19 08:00 53 L 96 12/28/19 07:30 51 L 164/80 96 12/28/19 07:29 97.9 F 56 L 18 164/80 97 12/28/19 05:33 97.6 F 54 L 18 136/74 96 12/28/19 02:45 56 L 20 130/63 96 12/28/19 02:00 54 L 20 142/90 95 12/28/19 01:00 54 L 20 126/53 96 12/28/19 00:00 52 L 20 142/60 95 12/27/19 23:49 52 L 12/27/19 23:47 20 12/27/19 23:38 56 L 20 155/75 98 12/27/19 22:51 58 L 20 158/78 97 12/27/19 22:15 60 18 187/97 95 12/27/19 20:02 98.0 F 50 L 20 176/87 98 12/27/19 20:00 52 L 12/27/19 19:01 56 L 18 191/95 96 12/27/19 18:11 97.7 F 79 16 127/79 95 Intake and Output 12/28/19 12/28/19 12/28/19 06:59 14:59 22:59 Output Total 600 Balance -600 Output: Urine 600 Other: Weight 79.379 kg - Constitutional General appearance: mild distress - EENT Eyes: PERRLA Ears: bilateral: normal - Neck Neck: normal ROM - Respiratory Respiratory: bilateral: CTA - Cardiovascular Rhythm: regular - Gastrointestinal General gastrointestinal: normal bowel sounds, soft - Integumentary Integumentary: normal - Neurologic Neurologic: CNII-XII intact - Psychiatric Psychiatric: A&O x's 3, appropriate affect, intact judgment & insight Results CBC & Chem 7: 12/27/19 18:50 12/27/19 18:50 Labs: Abnormal Lab Results - Last 24 Hours (Table) 12/27/19 12/27/19 12/28/19 Range/Units 18:50 18:50 06:28 RBC 4.25 L (4.30-5.90) m/uL Hgb 12.7 L (13.0-17.5) gm/dL Hct 38.9 L (39.0-53.0) % Lymphocytes # 0.9 L (1.0-4.8) k/uL Chloride 109 H (98-107) mmol/L BUN 23 H (9-20) mg/dL Glucose 101 H (74-99) mg/dL LDL Cholesterol, Calc 118 H (0-99) mg/dL HDL Cholesterol 36 L (40-60) mg/dL Chest x-ray: report reviewed Thrombosis Risk Factor Assmnt - Choose All That Apply Any of the Below Risk Factors Present?: Yes Other Risk Factors: Yes Each Risk Factor Represents 3 Points: Age 75 years or older Other congenital or acquired thrombophilia - If yes, enter type in comment: No Thrombosis Risk Factor Assessment Total Risk Factor Score: 3 Thrombosis Risk Factor Assessment Level: Moderate Risk Assessment and Plan Plan: Assessment Left arm pain angina Hypertensive crisis history of hypertension Glaucoma History of coronary disease with [place] Hiatal hernia Plan Cardiology consultation
--- NOTE | 2019-12-28 16:37 | P.DS ---
Providers Date of admission: 12/27/19 21:39 Expected date of discharge: 12/28/19 Attending physician: Jassi Perez Consults: 12/27/19 21:39 Consult Physician Urgent Consulting Provider: Love Marion Consult Reason/Comments: cp, htn Do you want consulting provider notified?: Yes Primary care physician: Jassi Perez [facility] Course: [facility] male presented to the emergency room with complaints of left arm pain was encouraged by family to come the emergency room. Patient was found to be hypertensive medication adjusted. Patient was seen by cardiology echo low normal 50-55% ejection fraction patient was cleared by cardiology for discharge Assessment Left arm pain angina troponins negative 3 History of glaucoma Hypertension history with hypertensive crisis Coronary disease history of [place] Hiatal hernia Plan Follow-up with cardiology and family physician Dr.Aaron Perez Patient Condition at Discharge: Fair Plan - Discharge Summary Discharge Rx Participant: No New Discharge Prescriptions: New Aspirin 325 mg PO DAILY tab Losartan [Cozaar] 75 mg PO DAILY #90 tab Atorvastatin [Lipitor] 40 mg PO HS #30 tab Metoprolol Tartrate [Lopressor] 25 mg PO BID #60 tab Dorzolamide 2% [Trusopt 2%] 1 drops BOTH EYES BID ml Continue Acetaminophen Tab [Tylenol] 325 mg PO Q8H PRN PRN Reason: Pain Brinzolamide/Brimonidine Tart [Simbrinza 1%-0.2% Eye Drops] 1 drop BOTH EYES BID Discontinued Losartan [Cozaar] 50 mg PO DAILY Ibuprofen [Motrin Ib] 200 mg PO Q8H PRN PRN Reason: Pain Discharge Medication List Acetaminophen Tab [Tylenol] 325 mg PO Q8H PRN 12/27/19 [History] Brinzolamide/Brimonidine Tart [Simbrinza 1%-0.2% Eye Drops] 1 drop BOTH EYES BID 12/27/19 [History] Aspirin 325 mg PO DAILY tab 12/28/19 [Rx] Atorvastatin [Lipitor] 40 mg PO HS #30 tab 12/28/19 [Rx] Dorzolamide 2% [Trusopt 2%] 1 drops BOTH EYES BID ml 12/28/19 [Rx] Losartan [Cozaar] 75 mg PO DAILY #90 tab 12/28/19 [Rx] Metoprolol Tartrate [Lopressor] 25 mg PO BID #60 tab 12/28/19 [Rx] Follow up Appointment(s)/Referral(s): Max Land MD [STAFF PHYSICIAN] - 1 Week (Follow-up with Tierra Neal PA-C on January 11 at 8:30 AM)
[2019-12-28 17:10] VITALS: PULSE 30; TEMP 98
[2019-12-28] MEDS ORDERED: ATORVASTATIN 40 MG TAB PO SCH (21:00)
[2019-12-29] MEDS ORDERED: LOSARTAN 25 MG TAB PO SCH (09:00)
== END 2019-12-28 16:55 | disposition home or self-care (01) ==
LOC: EC 18:09 → 1SOBS 21:39
PROVIDERS: ADMIT Family Medicine; ATTEND Family Medicine
DX: I25.119 Atherosclerotic heart disease of native coronary artery with unspecified angina pectoris (principal); I10 Essential (primary) hypertension; M79.602 Pain in left arm; I25.2 Old myocardial infarction; Z87.442 Personal history of urinary calculi; Z87.891 Personal history of nicotine dependence; H40.9 Unspecified glaucoma; K44.9 Diaphragmatic hernia without obstruction or gangrene; Z96.653 Presence of artificial knee joint, bilateral; Z90.49 Acquired absence of other specified parts of digestive tract; I08.1 Rheumatic disorders of both mitral and tricuspid valves; Z79.1 Long term (current) use of non-steroidal anti-inflammatories (NSAID); Z79.899 Other long term (current) drug therapy; Z88.0 Allergy status to penicillin; Z88.5 Allergy status to narcotic agent
CPT/HCPCS: 96372; 96374; 99285; 36415; 93005 ×2; 93306; 80061; 80053; 83735; 84484 ×2; 85025; 85610; 85730; 71046; G0378 ×2; J0360; J1650

== ENCOUNTER 2021-04-15 13:26 | Emergency (ER) | payer MEDICARE, BC ==
[2021-04-15] MEDS ORDERED: DIPH,PERTUS(ACELL)TETVAC-LF 0.5 ML VIAL IM ONE (13:31)
[2021-04-15] MEDS ORDERED: SODIUM CHLORIDE 0.9% 500 ML 500 ML IV STA (13:31)
--- NOTE | 2021-04-15 13:37 | ED ---
General Adult HPI - General Stated complaint: Tractor roll over Time Seen by Provider: 04/15/21 13:26 Source: patient, RN notes reviewed, old records reviewed - History of Present Illness Initial comments: This is an 86-year-old male presents emergency Department after having rolled over his tractor that weighs about 6500 pounds. According to the patient and EMS under came around and hit him in the abdomen and he did complain of lower and upper abdominal pain and a little bit of rib pain bilaterally. Patient denies hitting his head patient denies any neck pain. Patient denies any numbness weakness. Patient denies any leg pain or arm pain. Patient denies any chest pain or difficulty breathing or shortness of breath. - Related Data Home Medications Medication Instructions Recorded Confirmed Aspirin EC [Ecotrin Low Dose] 81 mg PO DAILY 04/15/21 04/15/21 Brimonidine Tartrate/Timolol 1 drop BOTH EYES BID 04/15/21 04/15/21 [Combigan 0.2%-0.5% Eye Drops] Losartan [Cozaar] 50 mg PO DAILY 04/15/21 04/15/21 Loteprednol Etabonate [Lotemax 1 dose LEFT EYE BID 04/15/21 04/15/21 Ophth Oint] Previous Rx's Medication Instructions Recorded Atorvastatin [Lipitor] 40 mg PO HS #30 tab 12/28/19 Allergies Allergy/AdvReac Type Severity Reaction Status Date / Time codeine AdvReac Unknown Verified 04/15/21 14:36 Penicillins AdvReac Unknown Verified 04/15/21 14:36 Review of Systems ROS Statement: Those systems with pertinent positive or pertinent negative responses have been documented in the HPI. ROS Other: All systems not noted in ROS Statement are negative. Past Medical History Past Medical History: Eye Disorder, Hypertension, Myocardial Infarction ([place]), Osteoarthritis ([place]), Prostate Disorder, Renal Disease, Vascular Disorder Additional Past Medical History / Comment(s): AAA with repair x2, nephrolithiasis with surgical removals, [place] age unknown-found on EKG, BPH, arthritis bilateral knees with surgery, bilateral glaucoma Last Myocardial Infarction Date:: unkn History of Any Multi-Drug Resistant Organisms: None Reported Past Surgical History: Appendectomy, Joint Replacement, Tonsillectomy Additional Past Surgical History / Comment(s): AAA repair x2, surgeries for kidney stone removals, bilateral cataract removals, colonoscopies, bilateral total knee replacements. Past Anesthesia/Blood Transfusion Reactions: No Reported Reaction Past Psychological History: No Psychological Hx Reported Additional Psychological History / Comment(s): Pt resides alone. He uses no assistive device. He drives. Past Alcohol Use History: Occasional Additional Past Alcohol Use History / Comment(s): Pt started smoking in 1962 and quit in 1982. Past Drug Use History: None Reported - Past Family History Father Family Medical History: Myocardial Infarction ([place]) Additional Family Medical History / Comment(s): Father had a [place] in his 70s. Mother Family Medical History: Musculoskeletal Disorder, Neurologic Disorder Additional Family Medical History / Comment(s): Mother had parkinsons. General Exam - General Exam Comments Initial Comments: GENERAL: Patient is well-developed and well-nourished. Patient is nontoxic and well- hydrated and is in mild distress. ENT: Neck is soft and supple. No significant lymphadenopathy is noted. Oropharynx is clear. Moist mucous membranes. Neck has full range of motion without eliciting any pain. EYES: The sclera were anicteric and conjunctiva were pink and moist. Extraocular movements were intact and pupils were equal round and reactive to light. Eyelids were unremarkable. PULMONARY: Unlabored respirations. Good breath sounds bilaterally. No audible rales rhonc hi or wheezing was noted. CARDIOVASCULAR: There is a regular rate and rhythm without any murmurs gallops or rubs. Patient has tenderness to the right lateral ribs in the left lateral rib cage. ABDOMEN: Patient has abdominal tenderness in the right upper and left upper abdomen. SKIN: Patient has a superficial abrasion to the anterior distal aspect of the leg and a smaller one to the proximal medial aspect of the leg on the left. NEUROLOGIC: Patient is alert and oriented x3. Cranial nerves II through XII are grossly intact. Motor and sensory are also intact. Normal speech, volume and content. Symmetrical smile. MUSCULOSKELETAL: Normal extremities with adequate strength and full range of motion. Patient is full range of motion of all 4 extremities. On palpation of his back he had some left flank tenderness just above the iliac crest on the left. LYMPHATICS: No significant lymphadenopathy is noted PSYCHIATRIC: Normal psychiatric evaluation. Course Vital Signs 04/15/21 13:26 Temperature 99.2 F Pulse Rate 52 L Respiratory 18 Rate Blood Pressure 181/80 O2 Sat by Pulse 96 Oximetry Medical Decision Making - Medical Decision Making EKG shows sinus bradycardia 52 bpm MS interval 176 QRS is 108 QT interval is 48 QTC is 453 per patient's EKG shows no ST segment elevation or depression. CT of the chest abdomen pelvis showed no acute abnormality. Patient was able to ambulate without problem. Patient had no complaints and wanted to be discharged home. - Lab Data Result diagrams: 04/15/21 13:25 04/15/21 13:25 Lab Results 04/15/21 04/15/21 04/15/21 Range/Units 13:25 13:25 13:25 WBC 6.8 (3.8-10.6) k/uL RBC 4.18 L (4.30-5.90) m/uL Hgb 13.5 (13.0-17.5) gm/dL Hct 38.4 L (39.0-53.0) % MCV 91.8 (80.0-100.0) fL MCH 32.2 (25.0-35.0) pg MCHC 35.1 (31.0-37.0) g/dL RDW 13.1 (11.5-15.5) % Plt Count 155 (150-450) k/uL MPV 7.1 Neutrophils % 79 % Lymphocytes % 10 % Monocytes % 6 % Eosinophils % 2 % Basophils % 1 % Neutrophils # 5.4 (1.3-7.7) k/uL Lymphocytes # 0.7 L (1.0-4.8) k/uL Monocytes # 0.4 (0-1.0) k/uL Eosinophils # 0.2 (0-0.7) k/uL Basophils # 0.0 (0-0.2) k/uL PT 10.6 (9.0-12.0) sec INR 1.0 (<1.2) APTT 21.8 L (22.0-30.0) sec Sodium 139 (137-145) mmol/L Potassium 4.2 (3.5-5.1) mmol/L Chloride 109 H (98-107) mmol/L Carbon Dioxide 24 (22-30) mmol/L Anion Gap 6 mmol/L BUN 25 H (9-20) mg/dL Creatinine 1.29 H (0.66-1.25) mg/dL Est GFR (CKD-EPI)AfAm 58 (>60 ml/min/1.73 sqM) Est GFR (CKD-EPI)NonAf 50 (>60 ml/min/1.73 sqM) Glucose 105 H (74-99) mg/dL POC Glucose (mg/dL) (75-99) mg/dL POC Glu Price Clerk ID Calcium 9.1 (8.4-10.2) mg/dL Total Bilirubin 0.9 (0.2-1.3) mg/dL AST 27 (17-59) U/L ALT 18 (4-49) U/L Alkaline Phosphatase 72 (38-126) U/L Troponin I (0.000-0.034) ng/mL Total Protein 6.2 L (6.3-8.2) g/dL Albumin 3.6 (3.5-5.0) g/dL Serum Alcohol <10 mg/dL Blood Type Blood Type Confirm Blood Type Recheck Bld Type Recheck Status Antibody Screen Spec Expiration Date 04/15/21 04/15/21 04/15/21 Range/Units 13:25 13:25 13:29 WBC (3.8-10.6) k/uL RBC (4.30-5.90) m/uL Hgb (13.0-17.5) gm/dL Hct (39.0-53.0) % MCV (80.0-100.0) fL MCH (25.0-35.0) pg MCHC (31.0-37.0) g/dL RDW (11.5-15.5) % Plt Count (150-450) k/uL MPV Neutrophils % % Lymphocytes % % Monocytes % % Eosinophils % % Basophils % % Neutrophils # (1.3-7.7) k/uL Lymphocytes # (1.0-4.8) k/uL Monocytes # (0-1.0) k/uL Eosinophils # (0-0.7) k/uL Basophils # (0-0.2) k/uL PT (9.0-12.0) sec INR (<1.2) APTT (22.0-30.0) sec Sodium (137-145) mmol/L Potassium (3.5-5.1) mmol/L Chloride (98-107) mmol/L Carbon Dioxide (22-30) mmol/L Anion Gap mmol/L BUN (9-20) mg/dL Creatinine (0.66-1.25) mg/dL Est GFR (CKD-EPI)AfAm (>60 ml/min/1.73 sqM) Est GFR (CKD-EPI)NonAf (>60 ml/min/1.73 sqM) Glucose (74-99) mg/dL POC Glucose (mg/dL) 98 (75-99) mg/dL POC Glu Price Clerk ID Nikky Smith Calcium (8.4-10.2) mg/dL Total Bilirubin (0.2-1.3) mg/dL AST (17-59) U/L ALT (4-49) U/L Alkaline Phosphatase (38-126) U/L Troponin I <0.012 (0.000-0.034) ng/mL Total Protein (6.3-8.2) g/dL Albumin (3.5-5.0) g/dL Serum Alcohol mg/dL Blood Type O Negative Blood Type Confirm Blood Type Recheck No Previous Record Bld Type Recheck Status CABO Indicated Antibody Screen NEGATIVE Spec Expiration Date 04/18/2021 - 232404/15/21 Range/Units 13:30 WBC (3.8-10.6) k/uL RBC (4.30-5.90) m/uL Hgb (13.0-17.5) gm/dL Hct (39.0-53.0) % MCV (80.0-100.0) fL MCH (25.0-35.0) pg MCHC (31.0-37.0) g/dL RDW (11.5-15.5) % Plt Count (150-450) k/uL MPV Neutrophils % % Lymphocytes % % Monocytes % % Eosinophils % % Basophils % % Neutrophils # (1.3-7.7) k/uL Lymphocytes # (1.0-4.8) k/uL Monocytes # (0-1.0) k/uL Eosinophils # (0-0.7) k/uL Basophils # (0-0.2) k/uL PT (9.0-12.0) sec INR (<1.2) APTT (22.0-30.0) sec Sodium (137-145) mmol/L Potassium (3.5-5.1) mmol/L Chloride (98-107) mmol/L Carbon Dioxide (22-30) mmol/L Anion Gap mmol/L BUN (9-20) mg/dL Creatinine (0.66-1.25) mg/dL Est GFR (CKD-EPI)AfAm (>60 ml/min/1.73 sqM) Est GFR (CKD-EPI)NonAf (>60 ml/min/1.73 sqM) Glucose (74-99) mg/dL POC Glucose (mg/dL) (75-99) mg/dL POC Glu Price Clerk ID Calcium (8.4-10.2) mg/dL Total Bilirubin (0.2-1.3) mg/dL AST (17-59) U/L ALT (4-49) U/L Alkaline Phosphatase (38-126) U/L Troponin I (0.000-0.034) ng/mL Total Protein (6.3-8.2) g/dL Albumin (3.5-5.0) g/dL Serum Alcohol mg/dL Blood Type Blood Type Confirm O Negative Blood Type Recheck Bld Type Recheck Status Antibody Screen Spec Expiration Date Disposition Clinical Impression: Accident caused by farm tractor, Abdominal contusion, Chest wall contusion, Abrasion of left leg Disposition: HOME SELF-CARE Condition: Good Instructions (If sedation given, give patient instructions): Contusion in Adults (ED), Abrasion (ED) Is patient prescribed a controlled substance at d/c from ED?: No Referrals: Jassi Perez MD [Primary Care Provider] - 1-2 days Time of Disposition: 14:55
[2021-04-15 13:47] LABS: Glucose,Whole Blood 98 mg/dL (75-99)
[2021-04-15 13:52] LABS: ALT 18 U/L (4-49); AST 27 U/L (17-59); African American GFR (CKD) 58 (>60 ml/min/1.73 sqM); Albumin 3.6 g/dL (3.5-5.0); Alcohol <10 mg/dL; Alkaline Phosphatase 72 U/L (38-126); Anion Gap 6 mmol/L; Blood Urea Nitrogen 25 mg/dL (9-20); Calcium 9.1 mg/dL (8.4-10.2); Carbon Dioxide 24 mmol/L (22-30); Chloride 109 mmol/L (98-107); Glucose 105 mg/dL (74-99); Non-African American GFR(CKD) 50 (>60 ml/min/1.73 sqM); Potassium 4.2 mmol/L (3.5-5.1); Sodium 139 mmol/L (137-145); Total Bilirubin 0.9 mg/dL (0.2-1.3); Total Protein 6.2 g/dL (6.3-8.2)
--- NOTE | 2021-04-15 13:53 | XR ---
EXAMINATION TYPE: XR chest 1V portable DATE OF EXAM: 04/15/2021 COMPARISON: NONE HISTORY: Pain TECHNIQUE: Single frontal view of the chest is obtained. FINDINGS: Heart size prominent is left lower lobe consolidation with small effusion. No pneumothorax or interstitial edema. Atherosclerotic change aorta. Large hiatal hernia suspected. IMPRESSION: 1. Large hiatal hernia with left basilar atelectasis favored over pneumonia.
--- NOTE | 2021-04-15 13:55 | XR ---
EXAMINATION TYPE: XR pelvis AP view DATE OF EXAM: 04/15/2021 COMPARISON: NONE HISTORY: Pain The osseous structures are intact and severe arthropathy of the left hip and moderate arthropathy of the right hip. Correlate for bilateral acetabular femoral impingement. Surgical clips overlying the r ight femoral neck and there is degenerative change of the spine. SI joints symmetric.. No acute frac ture is seen. Visualized bowel gas pattern is nonspecific. IMPRESSION: 1. No acute fracture. 2. Bilateral hip arthropathy correlate for femoral acetabular impingement
[2021-04-15 13:58] LABS: Prothrombin Time 10.6 sec (9.0-12.0)
[2021-04-15 14:02] LABS: Partial Thromboplastin Time 21.8 sec (22.0-30.0)
[2021-04-15 14:12] LABS: Basophils % (A) 1 %; Eosinophils # (A) 0.2 k/uL (0-0.7); Eosinophils % (A) 2 %; HCT 38.4 % (39.0-53.0); HGB 13.5 gm/dL (13.0-17.5); Lymphocytes # (A) 0.7 k/uL (1.0-4.8); Lymphocytes % (A) 10 %; MCH 32.2 pg (25.0-35.0); MCHC 35.1 g/dL (31.0-37.0); MCV 91.8 fL (80.0-100.0); Mean Platelet Volume 7.1; Monocytes # (A) 0.4 k/uL (0-1.0); Monocytes % (A) 6 %; Neutrophils # (A) 5.4 k/uL (1.3-7.7); Neutrophils % (A) 79 %; Platelet Count 155 k/uL (150-450); RBC 4.18 m/uL (4.30-5.90); RDW 13.1 % (11.5-15.5); WBC 6.8 k/uL (3.8-10.6)
[2021-04-15 14:17] VITALS: BP 181/80; PULSE 52; RESP 18; TEMP 99.2
--- NOTE | 2021-04-15 14:20 | CT ---
EXAMINATION TYPE: CT ChestAbdPelvis w con DATE OF EXAM: 04/15/2021 COMPARISON: None HISTORY: Tractor roll over Pain CT DLP: 1121.9 mGycm Automated exposure control for dose reduction was used. CONTRAST: Performed with IV Contrast, patient injected with 100 mL of Isovue 300. Images obtained from the thoracic inlet to the floor the pelvis with IV contrast. The lungs are clear of consolidation. There is mild subsegmental atelectasis and interstitial density at the lung bases. There is no pneumothorax. Heart is enlarged. There is coronary artery calcificati on. Thoracic aorta is atheromatous. Aorta measures up to 3.5 cm. There is large hiatal hernia. There is no mediastinal adenopathy. There are no hilar masses. Liver and spleen are intact. There is no pancreatic mass. Gallbladder is intact. There is increased d ensity in the dependent gallbladder that could be gallstones. Stomach has normal size. There is no adrenal mass. Kidneys show normal contrast opacification. There is bilateral renal multip le parapelvic cysts. Delayed images show normal renal excretion. There is no hydronephrosis. There ar e multiple right-sided renal cortical cysts up to almost 5 cm. There is no retroperitoneal adenopathy . Abdominal aorta is atheromatous. Bladder distends smoothly. There is no inguinal hernia. There is n o free fluid in the pelvis. There are multiple sigmoid diverticula. There is no sign of diverticuliti s. There is no mesenteric edema. There is no ascites or free air. There is no bowel obstruction. The hip joints are intact. Sacroiliac joints are normal. Pelvic ring appears intact. I see no evidence of a rib fracture. Visualized shoulder joints appear intact. The thoracic and lumbar vertebra have normal alignment. There is 30% compression fracture of L1 verte bra that is probably old. There is slight wedging also of T7 and T6 vertebra up to 20%. This appears old. Sternum is intact. There is increased subcutaneous density over the lateral aspect of both hip j oints. IMPRESSION: No evidence of acute traumatic injury within the chest abdomen pelvis. Renal parapelvic cysts. Probable gallstones. Sigmoid diverticulosis. Old mild compression fractures in the thoracic and lumbar spine. Atherosclerotic vascular disease. Hi atal hernia.
== END 2021-04-15 15:48 | disposition home or self-care (01) ==
LOC: EC 13:26
DX: S30.1XXA Contusion of abdominal wall, initial encounter (principal); S20.213A Contusion of bilateral front wall of thorax, initial encounter; S80.812A Abrasion, left lower leg, initial encounter; I10 Essential (primary) hypertension; I21.9 Acute myocardial infarction, unspecified; M19.90 Unspecified osteoarthritis, unspecified site; Z87.891 Personal history of nicotine dependence; V84.5XXA Driver of special agricultural vehicle injured in nontraffic accident, initial encounter
CPT/HCPCS: 99284; 90471; 93005; 86900; 86901; 80053; 84484; 85025; 85610; 85730; 86850; 72170; 71045; 71260; 74177; 90715; G0480; Q9967; 80320

== ENCOUNTER → 2021-04-19 | Outpatient (CLI) | payer MEDICARE, BC ==
--- NOTE | 2021-04-19 15:59 | CT ---
EXAMINATION TYPE: CT chest wo con DATE OF EXAM: 04/19/2021 COMPARISON: 04/15/2021 HISTORY: Chest pain after tractor accident. CT DLP: 369 mGycm, Automated exposure control for dose reduction was used. CONTRAST: Performed injected with 0 mL of Isovue 300. TECHNIQUE: Axial images were obtained at 5 mm thick sections. Reconstructed images are reviewed on [employer] computer in the coronal plane. FINDINGS: Portion of the thyroid visualized is normal. There is a 0.5 cm nodule within the right middle lobe. Series 3 image 32. Additional nodule may be a long the mediastinal border measuring 0.6 cm. Series 3 image 34. No pneumothorax is evident. No enlarged mediastinal or hilar adenopathy is evident. The ascending aorta diameter at the level o f the main pulmonary artery is 3.8 cm. The main pulmonary artery diameter at the bifurcation is 2.7 cm. Moderate coronary artery calcification is present. There is a moderately large hiatal hernia pres ent. Limited CT sections are obtained through the upper abdomen. Abdomen is essentially unremarkable. Osseous structures: There is a compression deformity in the region of L1 of indeterminate age. Vacuum disc phenomenon noted thoracic spine there is an anterior wedge deformity in the region of T7. IMPRESSIONS: 1. Couple of small stable nodules right middle lobe. 2. Moderately large hiatal hernia. 3. Compression deformities of indeterminate age T7 and L1 4. No additional suspicious abnormalities account for chest pain post trauma.
--- NOTE | 2021-04-20 08:52 | XR ---
EXAMINATION TYPE: XR ankle complete LT DATE OF EXAM: 04/19/2021 COMPARISON: NONE HISTORY: Pain FINDINGS: Three views of the ankle demonstrate the ankle mortise to be intact and symmetric. The joint spaces are preserved. The osseous structures are intact. Diffuse soft tissue swelling. Well-corticated den sity inferior to lateral malleolus appears chronic. Calcaneal spurs and vascular calcifications noted . IMPRESSION: 1. No definite acute fracture or dislocation, if symptoms persist follow-up study in 7 to 10 days wou ld be suggested. 2. Diffuse soft tissue edema.
--- NOTE | 2021-04-20 08:58 | XR ---
EXAMINATION TYPE: XR tibia fibula LT DATE OF EXAM: 04/19/2021 COMPARISON: NONE HISTORY: Pain TECHNIQUE: Two views are submitted. FINDINGS: The osseous structures are intact. Postsurgical change involving the knee. Vascular calcifications an d calcaneal spur noted. Diffuse soft tissue edema greater on the ankle. IMPRESSION: 1. Diffuse soft tissue edema.
== END | disposition home or self-care (01) ==
LOC: RADCTMAIN 14:45
PROVIDERS: ATTEND Family Medicine
DX: R60.0 Localized edema (principal); S29.9XXA Unspecified injury of thorax, initial encounter; R91.8 Other nonspecific abnormal finding of lung field; K44.9 Diaphragmatic hernia without obstruction or gangrene
CPT/HCPCS: 71250

== ENCOUNTER 2021-05-03 17:48 | Emergency (ER) | payer MEDICARE, BC ==
[2021-05-03 17:58] VITALS: TEMP 97.8
--- NOTE | 2021-05-03 19:50 | CT ---
EXAMINATION TYPE: CT facial bones wo con DATE OF EXAM: 05/03/2021 COMPARISON: None HISTORY: Fall today with left sided eye injury. Pain. CT DLP: 522 mGycm Automated exposure control for dose reduction was used. TECHNIQUE: CT scan of the sinuses is performed without contrast, axial images are obtained, coronal r eformatted images are also reviewed. FINDINGS: There is cutaneous/subcutaneous soft tissue swelling over the left zygoma and left orbit. T here is no underlying acute fracture. The orbits and maxillary sinuses are intact. The anterior nasal sinuses and middle ear cavities and mastoid sinus air cells are all clear. The facial skeleton was negative for fracture or malalignment. No incidental findings. IMPRESSION: 1. Negative for acute fracture or malalignment. 2. Soft tissue swelling over the left zygoma and left orbit.
--- NOTE | 2021-05-03 19:54 | ED ---
Fall HPI - General Chief Complaint: Fall Stated Complaint: Fall/blood thinners Time Seen by Provider: 05/03/21 18:25 Source: patient, RN notes reviewed Mode of arrival: wheelchair - History of Present Illness Initial Comments: Patient is an 86-year-old male visiting emergency department status post fall around 2:30 this afternoon. He notes he was in the garden try to pull some weeds when he lost his balance and fell hitting his head. He notes that he does not take blood thinners. He notes his glasses dug into his nose and under his left eye. He notes that he was hoping the underside of his left eye with stick together and he wants home. His son brought him in for evaluation. Patient denied any pain or issues at this time. He denied any extraocular movement pain pain with moving his eye blurry vision. Patient was well-appearing well- hydrated 86-year-old male in no apparent distress or pain. He denied any chest pain short of breath headache nausea vomiting diarrhea constipation fever fatigue chills. - Related Data Home Medications Medication Instructions Recorded Confirmed Aspirin EC [Ecotrin Low Dose] 81 mg PO DAILY 04/15/21 04/15/21 Brimonidine Tartrate/Timolol 1 drop BOTH EYES BID 04/15/21 04/15/21 [Combigan 0.2%-0.5% Eye Drops] Losartan [Cozaar] 50 mg PO DAILY 04/15/21 04/15/21 Loteprednol Etabonate [Lotemax 1 dose LEFT EYE BID 04/15/21 04/15/21 Ophth Oint] Previous Rx's Medication Instructions Recorded Atorvastatin [Lipitor] 40 mg PO HS #30 tab 12/28/19 Sulfamethox-Tmp 800-160Mg [Bactrim 1 each PO Q12HR #20 tab 05/03/21 Ds] Allergies Allergy/AdvReac Type Severity Reaction Status Date / Time codeine AdvReac Unknown Verified 05/03/21 17:58 Penicillins AdvReac Unknown Verified 05/03/21 17:58 Review of Systems ROS Statement: Those systems with pertinent positive or pertinent negative responses have been documented in the HPI. ROS Other: All systems not noted in ROS Statement are negative. Past Medical History Past Medical History: Eye Disorder, Hypertension, Myocardial Infarction ([place]), Osteoarthritis ([place]), Prostate Disorder, Renal Disease, Vascular Disorder Additional Past Medical History / Comment(s): AAA with repair x2, nephrolithiasis with surgical removals, [place] age unknown-found on EKG, BPH, arthritis bilateral knees with surgery, bilateral glaucoma Last Myocardial Infarction Date:: unkn History of Any Multi-Drug Resistant Organisms: None Reported Past Surgical History: Appendectomy, Joint Replacement, Tonsillectomy Additional Past Surgical History / Comment(s): AAA repair x2, surgeries for kidney stone removals, bilateral cataract removals, colonoscopies, bilateral total knee replacements. Past Anesthesia/Blood Transfusion Reactions: No Reported Reaction Past Psychological History: No Psychological Hx Reported Smoking Status: Never smoker Past Alcohol Use History: Occasional Past Drug Use History: None Reported - Past Family History Father Family Medical History: Myocardial Infarction ([place]) Additional Family Medical History / Comment(s): Father had a [place] in his 70s. Mother Family Medical History: Musculoskeletal Disorder, Neurologic Disorder Additional Family Medical History / Comment(s): Mother had parkinsons. General Exam Limitations: no limitations General appearance: alert, in no apparent distress Head exam: Present: normocephalic, normal inspection. Absent: atraumatic (Patient has a laceration just inferior left eye from glasses due to falling. Well approximated.) Eye exam: Present: normal appearance, PERRL, EOMI, other (No pain with extraocular movements,). Absent: scleral icterus, conjunctival injection, periorbital swelling ENT exam: Present: other (small abrasion to the bridge of the nose) Neck exam: Present: normal inspection Respiratory exam: Present: normal lung sounds bilaterally. Absent: respiratory distress, wheezes, rales, rhonchi, stridor Cardiovascular Exam: Present: regular rate, normal rhythm, normal heart sounds. Absent: systolic murmur, diastolic murmur, rubs, gallop, clicks Extremities exam: Present: normal inspection, full ROM, normal capillary refill. Absent: tenderness, pedal edema, joint swelling, calf tenderness Neurological exam: Present: alert, oriented X3 Psychiatric exam: Present: normal affect, normal mood Skin exam: Present: warm, dry, intact, normal color. Absent: rash Course Vital Signs 05/03/21 17:53 Temperature 97.8 F Pulse Rate 61 Respiratory 18 Rate Blood Pressure 217/91 O2 Sat by Pulse 97 Oximetry Procedures - Laceration Laceration #1 Consent Obtained: verbal consent Indication: laceration Site: face (Left cheek inferior the eye) Size (cm): 3 Description: linear Depth: simple, single layer Type of Sutures: other (glue) Technique: other (glue) Patient Tolerated Procedure: well, no complications Medical Decision Making - Medical Decision Making Patient is an 86-year-old male that presents to emergency department complaining of left cheek laceration just inferior the left eye status post fall at 2:[address] of the facial bones ordered. Patient declined the need for any pain medication this time as he noted he was not painful. A she declined stitches after being offered and requested glue. Patient tolerated well, had full vision and laceration". Case discussed with Dr. Tyson, patient can discharge home in stable condition with follow-up to primary care. - Radiology Data Radiology results: report reviewed, image reviewed CT of the facial bones: Negative for acute fracture or malalignment. Soft tissue swelling over the left zygoma and left orbit. Disposition Clinical Impression: Laceration, Fall Disposition: HOME SELF-CARE Condition: Stable Instructions (If sedation given, give patient instructions): Fall Prevention for Older Adults (ED) Additional Instructions: Please return to the Emergency Department if symptoms worsen or any other concerns. Follow-up with primary care in several days. Take antibiotics as prescribed until complete. Skin glue should wear off of this several days. Can wash with warm water gentle soap. Is patient prescribed a controlled substance at d/c from ED?: No Referrals: Jassi Perez MD [Primary Care Provider] - 1-2 days Time of Disposition: 20:12
[2021-05-03] MEDS ORDERED: TOPICAL SKIN ADHESIVE 1 EACH AMP TOPICAL ONE (20:00)
[2021-05-03 20:31] VITALS: BP 186/82; PULSE 84; RESP 16
== END 2021-05-03 20:28 | disposition home or self-care (01) ==
LOC: EC 17:48
DX: S01.412A Laceration without foreign body of left cheek and temporomandibular area, initial encounter (principal); I10 Essential (primary) hypertension; I25.2 Old myocardial infarction; M79.11 Myalgia of mastication muscle; Z79.82 Long term (current) use of aspirin; Z79.899 Other long term (current) drug therapy; Z88.0 Allergy status to penicillin; Z88.5 Allergy status to narcotic agent; W18.39XA Other fall on same level, initial encounter; W25.XXXA Contact with sharp glass, initial encounter; Y92.89 Other specified places as the place of occurrence of the external cause
CPT/HCPCS: 12013; 70486; 99283

== ENCOUNTER → 2021-10-17 | Outpatient (CLI) | payer MEDICARE, BC ==
--- NOTE | 2021-10-17 09:51 | ECHOF ---
Referral Reason:R42 dizziness MEASUREMENTS -------- HEIGHT: 177.8 cm WEIGHT: 77.1 kg BP: IVSd: 1.5 cm (0.6 - 1.1) LVIDd: 4.4 cm (3.9 - 5.3) LVPWd: 1.6 cm (0.6 - 1.1) EDV(Teich): 88 ml IVSs: 2.3 cm LVIDs: 2.1 cm LVPWs: 2.0 cm %IVS Thck: 52 % ESV(Teich): 14 ml EF(Teich): 84 % %FS: 53 % SV(Teich): 74 ml RVIDd: 2.6 cm (< 3.3) IVC: 16.61 mm LALs A4C: 5.1 cm LAAs A4C: 16.7 cm LAESV A-L A4C: 46 ml LAESV MOD A4C: 45 ml LALs A2C: 5.3 cm LAAs A2C: 17.8 cm LAESV A-L A2C: 51 ml LAESV MOD A2C: 47 ml LAESV(A-L): 49 ml LAESV Index (A-L): 25.22 ml/m Ao Diam: 4.0 cm (2.0 - 3.7) LA Diam: 3.9 cm (2.7 - 3.8) AV Cusp: 1.9 cm (1.5 - 2.6) EPSS: 0.8 cm MV E Fuentes: 0.59 m/s MV DecT: 414 ms MV Dec Burt: 1.4 m/s MV A Fuentes: 0.72 m/s MV E/A Ratio: 0.81 MV PHT: 120 ms MR Vmax: 6.93 m/s MR maxP.91 mmHg AV Vmax: 1.33 m/s AV maxP.03 mmHg AR Vmax: 2.57 m/s AR maxP.32 mmHg AR PHT: 689 ms AR Dec Time: 2376 ms AR Dec Burt: 1.1 m/s TR Vmax: 2.81 m/s TR maxP.55 mmHg RAP: 5.00 mmHg RVSP: 36.55 mmHg MV EF SLOPE: 39.64 mm/s (70 - 150) MV EXCURSION: 29.15 mm (> 18.000) FINDINGS -------- This was a technically good study. The left ventricular size is normal. There is moderate concentric left ventricular hypertrophy. O verall left ventricular systolic function is normal with, an EF between 55 - 60 %. The diastolic fi lling pattern is normal for the age of the patient 25.04. The right ventricle is normal in size. The left atrial size is normal. Normal LA size by volume 22+/-6 ml/m2. The right atrial size is normal. Aortic valve is trileaflet and is mildly thickened. There is mild aortic regurgitation. The mitral valve is normal. The mitral valve leaflets are mildly thickened. Mild mitral regurgita tion is present. The tricuspid valve appears structurally normal. Mild tricuspid regurgitation present. There is m ild pulmonary hypertension. The right ventricular systolic pressure, as measured by Doppler, is 36. 55mmHg. The aortic root size is normal. Normal inferior vena cava with normal inspiratory collapse consistent with estimated right atrial pre ssure of 5 mmHg. There is no pericardial effusion. CONCLUSIONS -------- 1. The left ventricular size is normal. 2. There is moderate concentric left ventricular hypertrophy. 3. Overall left ventricular systolic function is normal with, an EF between 55 - 60 %. 4. The diastolic filling pattern is normal for the age of the patient 25.04 5. Aortic valve is trileaflet and is mildly thickened. 6. There is mild aortic regurgitation. 7. The mitral valve leaflets are mildly thickened. 8. Mild mitral regurgitation is present. 9. Mild tricuspid regurgitation present. 10. There is mild pulmonary hypertension. 11. The right ventricular systolic pressure, as measured by Doppler, is 36.55mmHg. 12. The aortic root size is normal. 13. There is no pericardial effusion. STOCKBROKING DEALER: Kylie Nathan, [facility]
--- NOTE | 2021-10-19 10:41 | P.HOLTER ---
24-hour Holter monitor shows sinus mechanism heart rates ranging from 42-90 beats a minute average 53 beats a minute Infrequent PACs and PVCs 1 short run of nonsustained atrial fibrillation lasting for 20 beats
== END | disposition home or self-care (01) ==
LOC: RADECHMAIN 07:42
PROVIDERS: ATTEND Family Medicine
DX: I08.3 Combined rheumatic disorders of mitral, aortic and tricuspid valves (principal); I27.20 Pulmonary hypertension, unspecified; I49.3 Ventricular premature depolarization; I49.1 Atrial premature depolarization
CPT/HCPCS: 93225; 93226; 93306

== ENCOUNTER → 2021-12-05 | Outpatient (CLI) | payer MEDICARE, BC ==
[~2021-12-05] MED LIST changes: +ACETAMINOPHEN TAB 500 MG TAB PO NR; +IMMUNE GLOBULIN (GAMMAGARD) 30 GM in EMPTY BAG 1 BAG IV NR; -REGADENOSON 0.4 MG/5 ML SYRINGE IV ONE; +SODIUM CHLORIDE 0.9% 500 ML 500 ML in EMPTY BAG 1 BAG IV PRN; +diphenhydrAMINE 50 MG/ML 1 ML VIAL IVP NR; +methylPREDNISolone SOD SUCCI 125 MG/2 ML VIAL IVP NR
[2021-12-05 09:53] VITALS: RESP 16; TEMP 97.4
[2021-12-05] MEDS: IMMUNE GLOBULIN (GAMMAGARD) 10 GM in EMPTY BAG 1 BAG IV NR ×2 (10:02→13:40)
[2021-12-05 10:15] LABS: Basophils % (A) 0 %; Eosinophils # (A) 0.1 k/uL (0-0.7); Eosinophils % (A) 1 %; HGB 12.9 gm/dL (13.0-17.5); Lymphocytes # (A) 0.4 k/uL (1.0-4.8); Lymphocytes % (A) 3 %; MCH 32.3 pg (25.0-35.0); MCHC 32.2 g/dL (31.0-37.0); MCV 100.1 fL (80.0-100.0); Macrocytosis Slight; Mean Platelet Volume 8.7; Monocytes # (A) 0.3 k/uL (0-1.0); Monocytes % (A) 3 %; Neutrophils # (A) 10.2 k/uL (1.3-7.7); Neutrophils % (A) 92 %; RBC 3.99 m/uL (4.30-5.90); RDW 14.1 % (11.5-15.5); WBC 11.1 k/uL (3.8-10.6)
[2021-12-05 10:43] LABS: Platelet Count 69 k/uL (150-450)
[2021-12-05 11:11] VITALS: PULSE 50
[2021-12-05 11:44] VITALS: BP 145/71
== END ==
LOC: PROCWHC3 09:30
PROVIDERS: ATTEND Internal Medicine Hematology & Oncology
DX: D69.3 Immune thrombocytopenic purpura (principal); Z87.891 Personal history of nicotine dependence; Z88.5 Allergy status to narcotic agent; Z88.0 Allergy status to penicillin
CPT/HCPCS: 85025; 96365; 96366; 96375; 36415; J1200; J2930; J1569 ×2

== ENCOUNTER 2022-04-04 06:24 | Day surgery (SDC) | payer MEDICARE, BC ==
[~2022-04-04 06:24] MED LIST changes: -ACETAMINOPHEN TAB 500 MG TAB PO NR; -IMMUNE GLOBULIN (GAMMAGARD) 30 GM in EMPTY BAG 1 BAG IV NR; +SODIUM CHLORIDE 0.9% 1,000 ML IV SCH; -SODIUM CHLORIDE 0.9% 500 ML 500 ML in EMPTY BAG 1 BAG IV PRN; -diphenhydrAMINE 50 MG/ML 1 ML VIAL IVP NR; -methylPREDNISolone SOD SUCCI 125 MG/2 ML VIAL IVP NR
[2022-04-04] MEDS ORDERED: SODIUM CHLORIDE 0.9% 500 ML 500 ML IV ONE (06:48)
[2022-04-04] MEDS ORDERED: CLINDAMYCIN 900 MG in DEXTROSE 5% IN WATER 50 ML IVPB PRN ×2 (07:00)
[2022-04-04 07:01] VITALS: RESP 16; TEMP 98.5
[2022-04-04] MEDS ORDERED: LIDOCAINE 2% (PF) 20 MG/ML 5 ML VIAL SQ ONE (07:54)
[2022-04-04] MEDS ORDERED: LIDOCAINE 1% INJ 10MG/ML (5 ML VIAL-PF) SQ ONE (07:54)
--- NOTE | 2022-04-04 08:16 | P.EPPROC ---
- EP Procedure Note Electrophysiology Procedure Note: Diagnosis Sick Sinus Syndrome Palpitations, nonsustained atrial tachycardia Loop monitor implant Primary physicians: Compress Engineer: Dr. Land Indication: Diagnosis of severe sick sinus syndrome and atrial fibrillation Patient was brought to the EP lab in a fasting state. Written informed consent was obtained prior to the procedure. The left pectoral area was prepped and draped per protocol. Intravenous antibiotic was administered preoperatively. A subcutaneous Loop monitor was implanted successfully and the wound was closed per protocol. The device was programmed to detect significant norris- arrhythmic and tachy-arrhythmic events, per protocol. Device and programming details: A. fib and sick sinus syndrome monitoring Patient underwent EP procedure under conscious sedation/moderate sedation, monitoring of the level of consciousness and physiologic parameters including bu t not limited to vital signs and oxygenation. Patient tolerated the procedure well without any acute complications. Start time: 753 Stop time: 805
--- NOTE | 2022-04-04 08:18 | P.PRLE ---
RE: Rolando Jessica Dear Jassi Marshall underwent implantation of loop monitor for evaluation for sick sinus syndrome and atrial fibrillation He tolerated the procedure well without any acute complications We will observe for any tachybradycardia arrhythmias during his dizzy spells Thank you for entrusting me with the care of the patient Warm regards Sincerely Max Land
[2022-04-04 08:22] VITALS: BP 170/80; PULSE 44
== END 2022-04-04 08:34 | disposition home or self-care (01) ==
LOC: CATHEP 06:24
PROVIDERS: ATTEND Internal Medicine Clinical Cardiac Electrophysiology
DX: I47.1 Supraventricular tachycardia (principal); I49.5 Sick sinus syndrome; I12.9 Hypertensive chronic kidney disease with stage 1 through stage 4 chronic kidney disease, or unspecified chronic kidney disease; N18.9 Chronic kidney disease, unspecified; I48.0 Paroxysmal atrial fibrillation; I71.4 Abdominal aortic aneurysm, without rupture; Z20.822 Contact with and (suspected) exposure to COVID-19; Z79.899 Other long term (current) drug therapy; Z79.82 Long term (current) use of aspirin; Z88.5 Allergy status to narcotic agent; Z88.0 Allergy status to penicillin; Z88.2 Allergy status to sulfonamides; Z87.442 Personal history of urinary calculi; Z82.49 Family history of ischemic heart disease and other diseases of the circulatory system
CPT/HCPCS: 33285; 87635; C1764; J2001 ×2

== ENCOUNTER 2022-06-01 01:25 | Emergency (ER) | payer MEDICARE, BC ==
[2022-06-01 01:45] VITALS: BP 137/69; PULSE 50; RESP 19; TEMP 98.6
--- NOTE | 2022-06-01 02:49 | ED ---
Fall HPI - General Chief Complaint: Fall Stated Complaint: Forehead Laceration Time Seen by Provider: 06/01/22 02:34 Source: patient, family Mode of arrival: ambulatory - History of Present Illness Initial Comments: This patient is an 87-year-old man who presents to have evaluation after he had a fall and lacerated his forehead. Patient denies other injuries. No loss consciousness. MD Complaint: fall -: hour(s) Fall From: standing When Fall Occurred: [address] Fall Occurred: home Loss of Consciousness: none Prolonged Down Time?: no Symptoms Prior to Fall: none Location: head Context: tripped/slipped - Related Data Home Medications Medication Instructions Recorded Confirmed Brimonidine Tartrate/Timolol 1 drop BOTH EYES BID 04/15/21 04/04/22 [Combigan 0.2%-0.5% Eye Drops] Losartan [Cozaar] 50 mg PO DAILY 04/15/21 04/04/22 Cyanocobalamin (Vitamin B-12) 1 tab SUBLINGUAL DAILY 12/05/21 04/03/22 [Vitamin B12] Spironolactone [Aldactone] 25 mg PO DAILY 12/05/21 04/04/22 amLODIPine [Norvasc] 5 mg PO DAILY 12/05/21 04/04/22 Previous Rx's Medication Instructions Recorded Atorvastatin [Lipitor] 40 mg PO HS #30 tab 12/28/19 Allergies Allergy/AdvReac Type Severity Reaction Status Date / Time Penicillins Allergy Rash/Hives Verified 06/01/22 01:45 Sulfa (Sulfonamide Allergy itching, Verified 06/01/22 01:45 Antibiotics) passed out, weak codeine AdvReac Rash/Hives Verified 06/01/22 01:45 Review of Systems ROS Statement: Those systems with pertinent positive or pertinent negative responses have been documented in the HPI. ROS Other: All systems not noted in ROS Statement are negative. Constitutional: Denies: fever, weakness Respiratory: Denies: cough, dyspnea Cardiovascular: Denies: chest pain, palpitations, edema Gastrointestinal: Denies: abdominal pain, vomiting, diarrhea Genitourinary: Denies: dysuria Musculoskeletal: Denies: back pain Skin: Denies: rash Neurological: Denies: headache, weakness, numbness, paresthesias Past Medical History Past Medical History: Atrial Fibrillation, Eye Disorder, Hypertension, Myocardial Infarction ([place]), Osteoarthritis (OA), Prostate Disorder, Renal Disease, Vascular Disorder Additional Past Medical History / Comment(s): AAA with repair x2, nephrolithiasis with surgical removals, [place] age unknown-found on EKG, BPH, arthritis bilateral knees with surgery, bilateral glaucoma, see Dr Land H & P,. ITP-IVIG INFUSIONS. Last Myocardial Infarction Date:: unkn History of Any Multi-Drug Resistant Organisms: None Reported Past Surgical History: Appendectomy, Joint Replacement, Tonsillectomy Additional Past Surgical History / Comment(s): AAA repair x2, surgeries for kidney stone removals, bilateral cataract removals, colonoscopies, bilateral total knee replacements. Past Anesthesia/Blood Transfusion Reactions: No Reported Reaction Past Psychological History: No Psychological Hx Reported Smoking Status: Former smoker Past Alcohol Use History: None Reported Past Drug Use History: None Reported - Past Family History Father Family Medical History: Myocardial Infarction ([place]) Additional Family Medical History / Comment(s): Father had a [place] in his 70s. Mother Family Medical History: Musculoskeletal Disorder, Neurologic Disorder Additional Family Medical History / Comment(s): Mother had parkinsons. General Exam General appearance: alert, in no apparent distress Head exam: Present: normocephalic, other (There is approximately 3 cm laceration between the eyebrows) Eye exam: Present: normal appearance, PERRL, EOMI. Absent: scleral icterus, conjunctival injection Neck exam: Present: normal inspection, full ROM. Absent: tenderness Respiratory exam: Absent: respiratory distress, wheezes, rales, rhonchi, stridor Cardiovascular Exam: Present: regular rate, normal rhythm. Absent: systolic murmur, diastolic murmur, rubs, gallop GI/Abdominal exam: Present: soft. Absent: distended, tenderness, guarding, rebound, mass Extremities exam: Present: normal inspection, normal capillary refill. Absent: pedal edema, calf tenderness Neurological exam: Present: alert, oriented X3. Absent: motor sensory deficit Skin exam: Present: warm, dry, normal color. Absent: intact, rash Course Vital Signs 06/01/22 01:40 Temperature 98.6 F Pulse Rate 50 L Respiratory 19 Rate Blood Pressure 137/69 O2 Sat by Pulse 98 Oximetry Procedures - Laceration Laceration #1 Consent Obtained: verbal consent Indication: laceration Site: face Description: linear Depth: simple, single layer Type of Sutures: other (Skin adhesive) Technique: other (Skin adhesive) Patient Tolerated Procedure: well, no complications Disposition Clinical Impression: Fall, Facial laceration Disposition: HOME SELF-CARE Condition: Good Instructions (If sedation given, give patient instructions): Facial Laceration (ED) Is patient prescribed a controlled substance at d/c from ED?: No Referrals: Jassi Perez MD [Primary Care Provider] - 1-2 days
[2022-06-01] MEDS ORDERED: TOPICAL SKIN ADHESIVE 1 EACH AMP TOPICAL ONE (03:28)
--- NOTE | 2022-06-01 03:53 | CT ---
EXAMINATION TYPE: CT brain wo con DATE OF EXAM: 06/01/2022 COMPARISON: None HISTORY: Ran into the corner of the wall, forehead laceration. CT DLP: 1184.4 mGycm Automated exposure control for dose reduction was used. There is cerebral cortical atrophy. There is hypodensity in the periventricular white matter. There i s no mass effect or midline shift. No evidence of intracranial hemorrhage. The calvarium is intact. T here is some mild left frontal scalp soft tissue swelling. There is normal aeration of the paranasal sinuses. IMPRESSION: Cerebral atrophy and chronic small vessel ischemia. Forehead scalp soft tissue swelling. No acute int racranial abnormality.
== END 2022-06-01 04:36 | disposition home or self-care (01) ==
LOC: EC 01:25
DX: S01.81XA Laceration without foreign body of other part of head, initial encounter (principal); I10 Essential (primary) hypertension; I21.9 Acute myocardial infarction, unspecified; M19.90 Unspecified osteoarthritis, unspecified site; Z86.73 Personal history of transient ischemic attack (TIA), and cerebral infarction without residual deficits; Z87.891 Personal history of nicotine dependence; Z88.0 Allergy status to penicillin; Z88.2 Allergy status to sulfonamides; Z88.5 Allergy status to narcotic agent; Z79.899 Other long term (current) drug therapy; W01.0XXA Fall on same level from slipping, tripping and stumbling without subsequent striking against object, initial encounter
CPT/HCPCS: 12013; 70450; 99284

== ENCOUNTER → 2022-08-08 | Outpatient (CLI) | payer MEDICARE, BC ==
[~2022-08-08] MED LIST changes: +ONDANSETRON 16 MG in SODIUM CHLORIDE 0.9% 50 ML IVPB ONE; +SODIUM CHLORIDE 0.9% 1,000 ML IV ONE; -SODIUM CHLORIDE 0.9% 1,000 ML IV SCH; +SODIUM CHLORIDE 0.9% 500 ML 500 ML in EMPTY BAG 1 BAG IV PRN
[2022-08-08 13:59] VITALS: BP 165/76; PULSE 52; RESP 16; TEMP 97.6
== END | disposition home or self-care (01) ==
LOC: PROCWHC3 13:45
PROVIDERS: ATTEND Internal Medicine
DX: R19.7 Diarrhea, unspecified (principal); E86.0 Dehydration
CPT/HCPCS: 96360; 96365; J2405

== ENCOUNTER → 2023-02-07 | Outpatient (CLI) | payer MEDICARE, BC ==
--- NOTE | 2023-02-07 12:01 | US ---
EXAMINATION TYPE: US venous doppler duplex LE DATE OF EXAM: 02/07/2023 11:53 AM COMPARISON: NONE CLINICAL HISTORY: R60.0 EDEMA. Swelling, bruising to left lower leg post injury SIDE PERFORMED: Bilateral TECHNIQUE: The lower extremity deep venous system is examined utilizing real time linear array sonog yovanny with graded compression, doppler sonography and color-flow sonography. VESSELS IMAGED: Common Femoral Vein Deep Femoral Vein Greater Saphenous Vein * Femoral Vein Popliteal Vein Small Saphenous Vein * Proximal Calf Veins (* superficial vessels) Right Leg: Negative for DVT Left Leg: Negative for DVT Grayscale, color doppler, spectral doppler imaging performed of the deep veins of the bilateral lower extremities. There is normal flow, compressibility, vascular waveforms. IMPRESSION: No ultrasound evidence for acute DVT in either lower extremity. Mild subcutaneous edema noted on last image saved left lower leg.
== END | disposition home or self-care (01) ==
LOC: RADUSWWP 11:18
PROVIDERS: ATTEND Family Medicine
DX: S80.12XA Contusion of left lower leg, initial encounter (principal); X58.XXXA Exposure to other specified factors, initial encounter; R60.0 Localized edema
CPT/HCPCS: 93970

== ENCOUNTER 2023-02-08 11:42 | Inpatient (IN) | payer MEDICARE, BC ==
--- NOTE | 2023-02-08 12:42 | ED ---
General Adult HPI - General Chief complaint: Recheck/Abnormal Lab/Rx Stated complaint: Abn Labs, Sent by PCP Time Seen by Provider: 02/08/23 12:00 Source: patient, RN notes reviewed, old records reviewed Mode of arrival: ambulatory Limitations: no limitations - History of Present Illness Initial comments: This is a 87-year-old male who presents emergency Department with a past medical history significant for ITP. Patient injured his left leg about a week ago and the whole leg is more swollen and ecchymotic. Patient had blood drawn and showed that his platelets were 4. Patient denies any difficulty breathing shortness of breath. Patient denies any other areas of his leg. Patient states he was told to come in and get his platelets back up to 10. - Related Data Home Medications Medication Instructions Recorded Confirmed Brimonidine Tartrate/Timolol 1 drop BOTH EYES BID 04/15/21 08/08/22 [Combigan 0.2%-0.5% Eye Drops] Losartan [Cozaar] 50 mg PO DAILY 04/15/21 08/08/22 Cyanocobalamin (Vitamin B-12) 1 tab SUBLINGUAL DAILY 12/05/21 08/08/22 [Vitamin B12] Spironolactone [Aldactone] 25 mg PO DAILY 12/05/21 08/08/22 amLODIPine [Norvasc] 5 mg PO DAILY 12/05/21 08/08/22 Previous Rx's Medication Instructions Recorded Atorvastatin [Lipitor] 40 mg PO HS #30 tab 12/28/19 Allergies Allergy/AdvReac Type Severity Reaction Status Date / Time clindamycin Allergy Rash/Hives Verified 02/08/23 12:01 Penicillins Allergy Rash/Hives Verified 02/08/23 12:01 Sulfa (Sulfonamide Allergy itching, Verified 02/08/23 12:01 Antibiotics) passed out, weak codeine AdvReac Rash/Hives Verified 02/08/23 12:01 Review of Systems ROS Statement: Those systems with pertinent positive or pertinent negative responses have been documented in the HPI. ROS Other: All systems not noted in ROS Statement are negative. Past Medical History Past Medical History: Atrial Fibrillation, Eye Disorder, Hypertension, Myocardial Infarction ([place]), Osteoarthritis ([place]), Prostate Disorder, Renal Disease, Vascular Disorder Additional Past Medical History / Comment(s): AAA with repair x2, nephrolithiasis with surgical removals, [place] age unknown-found on EKG, BPH, arthritis bilateral knees with surgery, bilateral glaucoma, see Dr Land H & P,. ITP-IVIG INFUSIONS. Last Myocardial Infarction Date:: unkn History of Any Multi-Drug Resistant Organisms: None Reported Past Surgical History: Appendectomy, Joint Replacement, Tonsillectomy Additional Past Surgical History / Comment(s): AAA repair x2, surgeries for kidney stone removals, bilateral cataract removals, colonoscopies, bilateral total knee replacements. Past Anesthesia/Blood Transfusion Reactions: No Reported Reaction Past Psychological History: No Psychological Hx Reported Smoking Status: Former smoker - Past Family History Father Family Medical History: Myocardial Infarction ([place]) Additional Family Medical History / Comment(s): Father had a [place] in his 70s. Mother Family Medical History: Musculoskeletal Disorder, Neurologic Disorder Additional Family Medical History / Comment(s): Mother had parkinsons. General Exam - General Exam Comments Initial Comments: GENERAL: Patient is well-developed and well-nourished. Patient is nontoxic and well- hydrated and is in no acute distress. ENT: Neck is soft and supple. No significant lymphadenopathy is noted. Oropharynx is clear. Moist mucous membranes. Neck has full range of motion without eliciting any pain. EYES: The sclera were anicteric and conjunctiva were pink and moist. Extraocular movements were intact and pupils were equal round and reactive to light. Eyelids were unremarkable. PULMONARY: Unlabored respirations. Good breath sounds bilaterally. No audible rales rhonchi or wheezing was noted. CARDIOVASCULAR: There is a regular rate and rhythm without any murmurs gallops or rubs. ABDOMEN: Soft and nontender with normal bowel sounds. SKIN: Skin is clear with no lesions or rashes and otherwise unremarkable. NEUROLOGIC: Patient is alert and oriented x3. Cranial nerves II through XII are grossly intact. Motor and sensory are also intact. Normal speech, volume and content. Symmetrical smile. MUSCULOSKELETAL: Normal extremities with adequate strength and full range of motion. Left leg is edematous and ecchymotic LYMPHATICS: No significant lymphadenopathy is noted PSYCHIATRIC: Normal psychiatric evaluation. Limitations: no limitations Course Vital Signs 02/08/23 02/08/23 11:57 12:00 Temperature 98.3 F Pulse Rate 86 57 L Respiratory 20 18 Rate Blood Pressure 127/66 157/70 O2 Sat by Pulse 98 98 Oximetry Medical Decision Making - Medical Decision Making Was pt. sent in by a medical professional or institution ([facility], [facility], urgent care, hospital, or senior living...) When possible be specific @ -Patient was sent in by his operations manager station Did you speak to anyone other than the patient for history (EMS, parent, family, police, friend...)? What history was obtained from this source @ -Daughter gave most of the history Did you review nursing and triage notes (agree or disagree)? Why? @ -I reviewed and agree with nursing and triage notes Were old charts reviewed (outside hosp., previous admission, EMS record, old EKG, old radiological studies, urgent care reports/EKG's, senior living records)? Report findings @ -I reviewed prior lab work and compared to today's lab work Differential Diagnosis (chest pain, altered mental status, abdominal pain women, abdominal pain men, vaginal bleeding, weakness, fever, dyspnea, syncope, headache, dizziness, GI bleed, back pain, seizure, CVA, palpatations, mental health, musculoskeletal)? @ -not applicable EKG interpreted by me (3pts min.). @ -As above X-rays interpreted by me (1pt min.). @ -None done CT interpreted by me (1pt min.). @ -None done U/S interpreted by me (1pt. min.). @ -None done What testing was considered but not performed or refused? (CT, X-rays, U/S, labs)? Why? @ -None What meds were considered but not given or refused? Why? @ -None Did you discuss the management of the patient with other professionals (pr ofessionals i.e. MARY Guerra, [facility], lab, RT, psych nurse, web content & social media manager, acetylene gas compressor, teacher, mechanical engineering officer, insurance case manager)? Give summary @ -I spoke with [facility] hospitalist agreed to admit the patient and the patient wrote admitting orders Was smoking cessation discussed for >3mins.? @ -No Was critical care preformed (if so, how long)? @ -No Were there social determinants of health that impacted care today? How? (Homelessness, low income, unemployed, alcoholism, drug addiction, tra nsportation, low edu. Level, literacy, decrease access to med. care, senior care, rehab)? @ -No Was there de-escalation of care discussed even if they declined (Discuss DNR or withdrawal of care, Hospice)? DNR status @ -No What co-morbidities impacted this encounter? (DM, HTN, Smoking, COPD, CAD, Cancer, CVA, ARF, Chemo, Hep., AIDS, mental health diagnosis, sleep apnea, morbid obesity)? @ -None Was patient admitted / discharged? Hospital course, mention meds given and route, prescriptions, significant lab abnormalities, going to OR and other pertinent info. @ -Patient came in with the diagnosis of ITP stated his platelets were 4. Patient had quite a bit of ecchymosis to the left leg last week when he injured it. Patient was given IVIG and steroids per Dr. Gonzáles's request. I spoke with Dr. Hamm agreed to admit the patient to the patient wrote admitting orders I consulted Dr. Gonzáles Undiagnosed new problem with uncertain prognosis? @ -No Drug Therapy requiring intensive monitoring for toxicity (Heparin, Nitro, Insulin, Cardizem)? @ -No Were any procedures done? @ -No Diagnosis/symptom? @ -Thrombocytopenia Acute, or Chronic, or Acute on Chronic? @ -Acute Uncomplicated (without systemic symptoms) or Complicated (systemic symptoms)? @ -Complicated Side effects of treatment? @ -No Exacerbation, Progression, or Severe Exacerbation? @ -No Poses a threat to life or bodily function? How? (Chest pain, [place], [place], pneumonia, PE, COPD, DKA, ARF, appy, cholecystitis, CVA, Diverticulitis, Homicidal, Suicidal, threat to staff... and all critical care pts) @ -Yes this could lead to significant bleeding and impairment of organ function - Lab Data Result diagrams: 02/08/23 12:55 02/08/23 12:55 Lab Results 02/08/23 02/08/23 Range/Units 12:55 12:55 WBC 5.0 (3.8-10.6) k/uL RBC 2.96 L (4.30-5.90) m/uL Hgb 9.7 L (13.0-17.5) gm/dL Hct 27.5 L (39.0-53.0) % MCV 92.8 (80.0-100.0) fL MCH 32.8 (25.0-35.0) pg MCHC 35.4 (31.0-37.0) g/dL RDW 13.9 (11.5-15.5) % Plt Count 7 L* (150-450) k/uL MPV 15.1 Neutrophils % 70 % Lymphocytes % 15 % Monocytes % 10 % Eosinophils % 2 % Basophils % 1 % Neutrophils # 3.5 (1.3-7.7) k/uL Lymphocytes # 0.8 L (1.0-4.8) k/uL Monocytes # 0.5 (0-1.0) k/uL Eosinophils # 0.1 (0-0.7) k/uL Basophils # 0.0 (0-0.2) k/uL Manual Slide Review Performed Sodium 139 (137-145) mmol/L Potassium 4.1 (3.5-5.1) mmol/L Chloride 105 (98-107) mmol/L Carbon Dioxide 27 (22-30) mmol/L Anion Gap 7 mmol/L BUN 21 H (9-20) mg/dL Creatinine 1.10 (0.66-1.25) mg/dL Est GFR (CKD-EPI)AfAm 70 (>60 ml/min/1.73 sqM) Est GFR (CKD-EPI)NonAf 61 (>60 ml/min/1.73 sqM) Glucose 108 H (74-99) mg/dL Calcium 9.2 (8.4-10.2) mg/dL Total Bilirubin 1.7 H (0.2-1.3) mg/dL AST 19 (17-59) U/L ALT 15 (4-49) U/L Alkaline Phosphatase 88 (38-126) U/L Total Protein 6.2 L (6.3-8.2) g/dL Albumin 3.6 (3.5-5.0) g/dL Disposition Clinical Impression: Thrombocytopenia Disposition: ADMITTED IP TO THIS HOSP Is patient prescribed a controlled substance at d/c from ED?: No Referrals: Jassi Perez MD [Primary Care Provider] - 1-2 days Time of Disposition: 13:55
[2023-02-08] MEDS ORDERED: methylPREDNISolone SOD SUCCI 125 MG/2 ML VIAL IV STA (13:04)
[2023-02-08 13:08] LABS: Basophils % (A) 1 %; Eosinophils # (A) 0.1 k/uL (0-0.7); Eosinophils % (A) 2 %; HCT 27.5 % (39.0-53.0); HGB 9.7 gm/dL (13.0-17.5); Lymphocytes # (A) 0.8 k/uL (1.0-4.8); Lymphocytes % (A) 15 %; MCH 32.8 pg (25.0-35.0); MCHC 35.4 g/dL (31.0-37.0); MCV 92.8 fL (80.0-100.0); Mean Platelet Volume 15.1; Monocytes # (A) 0.5 k/uL (0-1.0); Monocytes % (A) 10 %; Neutrophils # (A) 3.5 k/uL (1.3-7.7); Neutrophils % (A) 70 %; RBC 2.96 m/uL (4.30-5.90); RDW 13.9 % (11.5-15.5)
[2023-02-08 13:10] LABS: Platelet Count 7 k/uL (150-450)
[2023-02-08 13:14] LABS: Albumin 3.6 g/dL (3.5-5.0); Calcium 9.2 mg/dL (8.4-10.2); Potassium 4.1 mmol/L (3.5-5.1); Total Bilirubin 1.7 mg/dL (0.2-1.3); Total Protein 6.2 g/dL (6.3-8.2)
[2023-02-08] MEDS ORDERED: IMMUNE GLOBULIN (GAMMAGARD) 20 GM in EMPTY BAG 1 BAG IV SCH ×2 (14:00→16:00)
--- NOTE | 2023-02-08 17:33 | P.HPIM ---
History of Present Illness This is a pleasant 87 years old male with multiple medical problems including ITP, immune thrombocytopenic purpura, Atrial Fibrillation, Hypertension, Osteoarthritis (OA), benign prostatic hypertrophy, aortic aneurysm status post repair, glaucoma Presents because of the leg number was. Also was sent by PCP for thrombocytopenia. Information were obtained from the patient and daughter at bedside. Patient hit his leg when he slipped trying to get into the car of his son about a week ago, he had some abrasion and trauma to the front of his left leg, since then his left leg was swelling with redness progressive, he went to see his PCP Dr. Perez yesterday, as per daughter and patient Dr. Perez ordered ultrasound of the left leg which was negative for DVT however he call him today stating that he has low platelet count about 4000 and he has came to come to emergency room. Patient is denying any chest pain or dyspnea or coughing. No abdominal pain vomiting or diarrhea. No dysuria or urgency. He says that last year he had an episode of low platelet count at [address] Alarcon attributed to the called vaccine he received Patient denies smoking alcohol or illicit drugs. CBC showing hemoglobin of 9.7, platelet count 7000, BMP and liver enzymes were unremarkable. Bilirubin is slightly elevated 1.7. And emergency room patient received immunoglobulin and a Medrol 60 mg and paper making machine operator was contacted who recommended patient to be admitted to the hospital. Review of Systems Review of systems CONSTITUTIONAL: No fever, no malaise, no fatigue. HEENT: No recent visual problems or hearing problems. Denied any sore throat. CARDIOVASCULAR: No orthopnea, PND, no palpitations, no syncope. PULMONARY: No shortness of breath, no cough, no hemoptysis. GASTROINTESTINAL: No diarrhea, no nausea, no vomiting, no abdominal pain. Normoactive bowel sounds. NEUROLOGICAL: No headaches, no weakness, no numbness. HEMATOLOGICAL: Denies any bleeding or petechiae. GENITOURINARY: Denies any burning micturition, frequency, or urgency. MUSCULOSKELETAL/RHEUMATOLOGICAL: Denies any joint pain, swelling, or any muscle pain. ENDOCRINE: Denies any polyuria or polydipsia. Past Medical History Past Medical History: Atrial Fibrillation, Eye Disorder, Hypertension, Myocardial Infarction ([place]), Osteoarthritis (OA), Prostate Disorder, Renal Disease, Vascular Disorder Additional Past Medical History / Comment(s): AAA with repair x2, nephrolithiasis with surgical removals, [place] age unknown-found on EKG, BPH, arthritis bilateral knees with surgery, bilateral glaucoma, see Dr Land H & P,. ITP-IVIG INFUSIONS. Last Myocardial Infarction Date:: unkn History of Any Multi-Drug Resistant Organisms: None Reported Past Surgical History: Appendectomy, Joint Replacement, Tonsillectomy Additional Past Surgical History / Comment(s): AAA repair x2, surgeries for kidney stone removals, bilateral cataract removals, colonoscopies, bilateral total knee replacements. Past Anesthesia/Blood Transfusion Reactions: No Reported Reaction Past Psychological History: No Psychological Hx Reported Smoking Status: Former smoker - Past Family History Father Family Medical History: Myocardial Infarction ([place]) Additional Family Medical History / Comment(s): Father had a [place] in his 70s. Mother Family Medical History: Musculoskeletal Disorder, Neurologic Disorder Additional Family Medical History / Comment(s): Mother had parkinsons. Medications and Allergies Home Medications Medication Instructions Recorded Confirmed Type Atorvastatin [Lipitor] 40 mg PO HS #30 tab 12/28/19 02/08/23 Rx Brimonidine Tartrate/Timolol 1 drop BOTH EYES BID 04/15/21 02/08/23 History [Combigan 0.2%-0.5% Eye Drops] Cyanocobalamin (Vitamin B-12) 5,000 mg SUBLINGUAL DAILY 12/05/21 02/08/23 History [Vitamin B12] Spironolactone [Aldactone] 25 mg PO DAILY 12/05/21 02/08/23 History amLODIPine [Norvasc] 5 mg PO HS 12/05/21 02/08/23 History Ascorbic Acid [Vitamin C] 500 mg PO DAILY 02/08/23 02/08/23 History Aspirin EC [Ecotrin Low Dose] 81 mg PO HS 02/08/23 02/08/23 History Latanoprost/Pf [Latanoprost 0.005% 1 drop BOTH EYES HS 02/08/23 02/08/23 History Eye Drop] Losartan Potassium 100 mg PO DAILY 02/08/23 02/08/23 History Multivitamins, Thera [Multivitamin 1 tab PO DAILY 02/08/23 02/08/23 History (formulary)] Olopatadine HCl [Patanol 0.1%] 1 drop BOTH EYES BID PRN 02/08/23 02/08/23 History Triamcinolone 0.025% Cream 1 applic TOPICAL BID PRN 02/08/23 02/08/23 History [Kenalog 0.025% Cream] Allergies Allergy/AdvReac Type Severity Reaction Status Date / Time clindamycin Allergy Rash/Hives Verified 02/08/23 14:13 Penicillins Allergy Rash/Hives Verified 02/08/23 14:13 Sulfa (Sulfonamide Allergy itching, Verified 02/08/23 14:13 Antibiotics) passed out, weak codeine AdvReac Rash/Hives Verified 02/08/23 14:13 Physical Exam Vitals: Vital Signs Temp Pulse Pulse Resp BP BP Pulse Ox 02/08/23 14:49 98.6 F 60 16 182/77 97 02/08/23 14:18 98.1 F 57 L 17 152/81 99 02/08/23 12:00 57 L 18 157/70 98 02/08/23 11:57 98.3 F 86 20 127/66 98 Intake and Output 02/08/23 02/08/23 02/08/23 06:59 14:59 22:59 Intake Total 44.667 Balance 44.667 Intake: Intake, IV Titration 44.667 Amount Immune Globulin ( 44.667 Gammagard) 20 gm In Empty Bag 1 bag @ Per Protocol IV .Q0M [facility] Rx#: [id number] Other: Weight 79.379 kg GENERAL: The patient is alert and oriented x3, not in any acute distress. Well developed, well nourished. HEENT: Pupils are round and equally reacting to light. EOMI. No scleral icterus. No conjunctival pallor. Normocephalic, atraumatic. No pharyngeal erythema. No thyromegaly. CARDIOVASCULAR: S1 and S2 present. No murmurs, rubs, or gallops. PULMONARY: Chest is clear to auscultation, no wheezing or crackles. ABDOMEN: Soft, nontender, nondistended, normoactive bowel sounds. No palpable organomegaly. MUSCULOSKELETAL: No joint swelling or deformity. -EXTREMITIES: No cyanosis, clubbing, or pedal edema. Left leg is swollen with erythema and warmth and tenderness involving most of the left leg NEUROLOGICAL: Gross neurological examination did not reveal any focal deficits. -SKIN: No rashes. Bilateral extremity petechiae. More of the lower extremity Results CBC & Chem 7: 02/08/23 12:55 02/08/23 12:55 Labs: Abnormal Lab Results - Last 24 Hours (Table) 02/08/23 02/08/23 Range/Units 12:55 12:55 RBC 2.96 L (4.30-5.90) m/uL Hgb 9.7 L (13.0-17.5) gm/dL Hct 27.5 L (39.0-53.0) % Plt Count 7 L* (150-450) k/uL Lymphocytes # 0.8 L (1.0-4.8) k/uL BUN 21 H (9-20) mg/dL Glucose 108 H (74-99) mg/dL Total Bilirubin 1.7 H (0.2-1.3) mg/dL Total Protein 6.2 L (6.3-8.2) g/dL Assessment and Plan Assessment: Acute thrombocytopenia, recurrent, most likely related to new thrombocytopenic purpura Acute left leg swelling, with a Ish and erythema suspicious for cellulitis, rule out bleeding. History of chronic atrial fibrillation Hypertension Hyperlipidemia History of glaucoma Plan: Hold aspirin and other blood thinners Continue with IV Solu-Medrol Hematology/oncology consult Consult infectious disease for antibiotic treatment Check ultrasound of the left leg to rule out bleeding Labs and medication were reviewed.. Continue same treatment. Continue with symptomatic treatment. Resume home medication. Monitor labs and vitals. DVT and GI prophylaxis. Further recommendations as per clinical course of the patient DVT prophylaxis: no Subcutaneous heparin GI Prophylaxis: Pepcid PT/OT: Pending Prognosis is guarded
[2023-02-08] MEDS: methylPREDNISolone SOD SUCCI 125 MG/2 ML VIAL IV SCH (18:08)
--- NOTE | 2023-02-08 19:34 | US ---
EXAMINATION TYPE: US extremity nonvasculr ltd LT DATE OF EXAM: 02/08/2023 COMPARISON: NONE CLINICAL HISTORY: Rule out hematoma in the left leg. Left lower leg bruising redness and swelling, chino dunham states he fell 6 days ago while climbing up into his truck and hit his left lower leg on the tr [employer] running board. Technique: Ultrasound grayscale color Doppler imaging of the left lower extremity. Findings: Left medial lower leg: edema seen, no mass or fluid collection seen at patient's area of concern IMPRESSION: Subcutaneous edema favored represent serous fluid and less likely hematoma given through-transmission ..
[2023-02-08] MEDS ORDERED: amLODIPine 5 MG TAB PO SCH (21:00)
[2023-02-08] MEDS ORDERED: KETOTIFEN 0.025% OPHTH DROPS 5 ML BTL BOTH EYES PRN (21:00)
[2023-02-08] MEDS: METOPROLOL TARTRATE 25 MG TAB PO SCH (21:18)
[2023-02-08] MEDS: LATANOPROST 0.005% OPHTH DROPS 2.5 ML BTL BOTH EYES SCH (23:13)
--- NOTE | 2023-02-08 23:22 | P.CONS ---
History of Present Illness - Reason for Consult Consult date: 02/08/23 - History of Present Illness Patient is a 87-year-old male with a past medical history significant for atrial fibrillation hypertension did have ITP, benign prostatic hypertrophy aortic aneurysm patient apparently did hit his leg when he was slipped trying to get into the car, about a week ago and the patient subsequently has developed significant bruising to the left lower extremity with associated swelling and some redness patient did have a dull aching pain to the leg 2-3 out of 10 no radiation did not have any open wound or any drainage patient apparently did have ultrasound of the left leg which was negative for DVT however the patient was noticed to have a low platelet count for the patient was sent to the ER on presentation to the hospital patient was afebrile and no fever has been recorded subsequently patient did have a normal white count platelet count is 7k creatinine is 1.10 bilirubin is 1.7 with erythema to the left lower extremity concerning for cellulitis infectious disease was consulted because of patient multiple allergies Past Medical History Past Medical History: Atrial Fibrillation, Eye Disorder, Hypertension, Myocardial Infarction ([place]), Osteoarthritis (OA), Prostate Disorder, Renal Disease, Vascular Disorder Additional Past Medical History / Comment(s): AAA with repair x2, nephrolithiasis with surgical removals, [place] age unknown-found on EKG, BPH, arthritis bilateral knees with surgery, bilateral glaucoma, see Dr Land H & P,. ITP-IVIG INFUSIONS. Last Myocardial Infarction Date:: unkn History of Any Multi-Drug Resistant Organisms: None Reported Past Surgical History: Appendectomy, Joint Replacement, Tonsillectomy Additional Past Surgical History / Comment(s): AAA repair x2, surgeries for kidney stone removals, bilateral cataract removals, colonoscopies, bilateral total knee replacements. Past Anesthesia/Blood Transfusion Reactions: No Reported Reaction Past Psychological History: No Psychological Hx Reported Smoking Status: Former smoker - Past Family History Father Family Medical History: Myocardial Infarction ([place]) Additional Family Medical History / Comment(s): Father had a [place] in his 70s. Mother Family Medical History: Musculoskeletal Disorder, Neurologic Disorder Additional Family Medical History / Comment(s): Mother had parkinsons. Medications and Allergies Home Medications Medication Instructions Recorded Confirmed Type Atorvastatin [Lipitor] 40 mg PO HS #30 tab 12/28/19 02/08/23 Rx Brimonidine Tartrate/Timolol 1 drop BOTH EYES BID 04/15/21 02/08/23 History [Combigan 0.2%-0.5% Eye Drops] Cyanocobalamin (Vitamin B-12) 5,000 mg SUBLINGUAL DAILY 12/05/21 02/08/23 History [Vitamin B12] Spironolactone [Aldactone] 25 mg PO DAILY 12/05/21 02/08/23 History amLODIPine [Norvasc] 5 mg PO HS 12/05/21 02/08/23 History Ascorbic Acid [Vitamin C] 500 mg PO DAILY 02/08/23 02/08/23 History Aspirin EC [Ecotrin Low Dose] 81 mg PO HS 02/08/23 02/08/23 History Latanoprost/Pf [Latanoprost 0.005% 1 drop BOTH EYES HS 02/08/23 02/08/23 History Eye Drop] Losartan Potassium 100 mg PO DAILY 02/08/23 02/08/23 History Multivitamins, Thera [Multivitamin 1 tab PO DAILY 02/08/23 02/08/23 History (formulary)] Olopatadine HCl [Patanol 0.1%] 1 drop BOTH EYES DAILY 02/08/23 02/09/23 History Triamcinolone 0.025% Cream 1 applic TOPICAL BID PRN 02/08/23 02/08/23 History [Kenalog 0.025% Cream] Brimonidine Tartrate/Timolol 1 drop BOTH EYES HS 02/09/23 02/09/23 History [Combigan 0.2%-0.5% Eye Drops] Allergies Allergy/AdvReac Type Severity Reaction Status Date / Time clindamycin Allergy Rash/Hives Verified 02/08/23 14:13 Penicillins Allergy Rash/Hives Verified 02/08/23 14:13 Sulfa (Sulfonamide Allergy itching, Verified 02/08/23 14:13 Antibiotics) passed out, weak codeine AdvReac Rash/Hives Verified 02/08/23 14:13 Physical Exam Vitals: Vital Signs Temp Pulse Pulse Resp BP BP Pulse Ox 02/08/23 14:49 98.6 F 60 16 182/77 97 02/08/23 14:18 98.1 F 57 L 17 152/81 99 02/08/23 12:00 57 L 18 157/70 98 02/08/23 11:57 98.3 F 86 20 127/66 98 Intake and Output 02/08/23 02/08/23 02/08/23 06:59 14:59 22:59 Intake Total 44.667 Balance 44.667 Intake: Intake, IV Titration 44.667 Amount Immune Globulin ( 44.667 Gammagard) 20 gm In Empty Bag 1 bag @ Per Protocol IV .Q0M [facility] Rx#: [id number] Other: Weight 79.379 kg Results CBC & Chem 7: 02/09/23 08:21 02/09/23 08:21 Labs: Abnormal Lab Results - Last 24 Hours (Table) 02/08/23 02/08/23 Range/Units 12:55 12:55 RBC 2.96 L (4.30-5.90) m/uL Hgb 9.7 L (13.0-17.5) gm/dL Hct 27.5 L (39.0-53.0) % Plt Count 7 L* (150-450) k/uL Lymphocytes # 0.8 L (1.0-4.8) k/uL BUN 21 H (9-20) mg/dL Glucose 108 H (74-99) mg/dL Total Bilirubin 1.7 H (0.2-1.3) mg/dL Total Protein 6.2 L (6.3-8.2) g/dL Assessment and Plan Plan: 1patient in the hospital left lower extremity swelling bruising and also have a complaint of erythema concerning for cellulitis likely from gram-positive skin sean in this patient who did have injury to the left leg about a week ago and also noted to have significant thrombocytopenia will need to call for the gram- positive skin sean and no risk factor for MRSA infection 2-patient with multiple antibiotic allergies that would limit the number of antibiotics safe to use 3-we will start the patient on cefazolin 2 g every 8 hours We will follow on clinical condition and cultures to further adjust medication if needed Thank you for this consultation we will follow the patient along with you Time with Patient: Greater than 30
[2023-02-09] MEDS: methylPREDNISolone SOD SUCCI 125 MG/2 ML VIAL IV SCH ×4 (00:04→20:20)
[2023-02-09] MEDS ORDERED: DEXTROSE 50% SYRINGE 50 ML IVP PRN ×2 (02:08)
[2023-02-09 06:40] LABS: Glucose,Whole Blood 215 mg/dL (70-110)
[2023-02-09] MEDS: PANTOPRAZOLE 40 MG TABLET PO SCH (06:42)
[2023-02-09] MEDS: INSULIN ASPART (NovoLOG) 100 UNIT/ML VIAL SQ SCH ×4 (06:42→20:20)
[2023-02-09] MEDS: METOPROLOL TARTRATE 25 MG TAB PO SCH ×2 (08:12→20:20)
--- NOTE | 2023-02-09 08:18 | P.CONS ---
History of Present Illness - Reason for Consult Consult date: 02/09/23 ITP - History of Present Illness The patient is an 87-year-old white male, with well controlled medical problems at baseline. The patient is known to our service, and follows with Dr. Alarcon as an outpatient. He was initially seen in 12/01 because of low platelets in the 16-18,000 range. His workup was consistent with ITP. He was treated with steroids and IVIG, and achieved remission. He was able to be tapered off the steroids, and platelet counts have remained in the normal range on follow-up since. The patient had accidentally hurt his left lower extremity, and developed a large bruise which persisted over several days. He then developed some redness in the same area and discomfort. He was seen by his PCP and had blood drawn, which showed a platelet count of 4000. He was therefore contacted and asked to come into the hospital. His contacted the answering service, and was given the same recommendations by myself. Platelets in the ER were 7000. Case was discussed in detail with the ER lola vickers, and it was recommended that the patient be admitted for relapse of ITP. He denies any definite diagnosis of infection as an outpatient. No history of any change in medication, fevers, chills, lymphadenopathy or joint swelling, or unexplained weight loss. He was evaluated by ID on admission, and was started on antibiotics for clinical cellulitis involving the left lower extremity. Review of Systems Constitutional: Denies chills, Denies fever Eyes: denies blurred vision, denies pain Ears: bilateral: decreased hearing Ears, nose, mouth and throat: Denies headache, Denies sore throat Cardiovascular: Denies chest pain, Denies shortness of breath Respiratory: Denies cough Gastrointestinal: Denies abdominal pain, Denies diarrhea, Denies nausea, Denies vomiting Genitourinary: Reports as per HPI Musculoskeletal: Reports as per HPI Integumentary: Reports color changes, Reports unusual bruising Neurological: Denies numbness, Denies weakness Psychiatric: Denies anxiety, Denies depression Endocrine: Denies fatigue, Denies weight change Hematologic/Lymphatic: Reports as per HPI Past Medical History Past Medical History: Atrial Fibrillation, Eye Disorder, Hypertension, Myocard ial Infarction ([place]), Osteoarthritis ([place]), Prostate Disorder, Renal Disease, Vascular Disorder Additional Past Medical History / Comment(s): AAA with repair x2, nephrolithiasis with surgical removals, [place] age unknown-found on EKG, BPH, arthritis bilateral knees with surgery, bilateral glaucoma, see Dr Land H & P,. ITP-IVIG INFUSIONS. Last Myocardial Infarction Date:: unkn History of Any Multi-Drug Resistant Organisms: None Reported Past Surgical History: Appendectomy, Joint Replacement, Tonsillectomy Additional Past Surgical History / Comment(s): AAA repair x2, surgeries for kidney stone removals, bilateral cataract removals, colonoscopies, bilateral total knee replacements. Past Anesthesia/Blood Transfusion Reactions: No Reported Reaction Past Psychological History: No Psychological Hx Reported Smoking Status: Former smoker - Past Family History Father History Unknown: Yes Family Medical History: Myocardial Infarction ([place]) Additional Family Medical History / Comment(s): Father had a [place] in his 70s. Mother History Unknown: Yes Family Medical History: Musculoskeletal Disorder, Neurologic Disorder Additional Family Medical History / Comment(s): Mother had parkinsons. Medications and Allergies Home Medications Medication Instructions Recorded Confirmed Type Atorvastatin [Lipitor] 40 mg PO HS #30 tab 12/28/19 02/08/23 Rx Brimonidine Tartrate/Timolol 1 drop BOTH EYES BID 04/15/21 02/08/23 History [Combigan 0.2%-0.5% Eye Drops] Cyanocobalamin (Vitamin B-12) 5,000 mg SUBLINGUAL DAILY 12/05/21 02/08/23 History [Vitamin B12] Spironolactone [Aldactone] 25 mg PO DAILY 12/05/21 02/08/23 History amLODIPine [Norvasc] 5 mg PO HS 12/05/21 02/08/23 History Ascorbic Acid [Vitamin C] 500 mg PO DAILY 02/08/23 02/08/23 History Aspirin EC [Ecotrin Low Dose] 81 mg PO HS 02/08/23 02/08/23 History Latanoprost/Pf [Latanoprost 0.005% 1 drop BOTH EYES HS 02/08/23 02/08/23 History Eye Drop] Losartan Potassium 100 mg PO DAILY 02/08/23 02/08/23 History Multivitamins, Thera [Multivitamin 1 tab PO DAILY 02/08/23 02/08/23 History (formulary)] Olopatadine HCl [Patanol 0.1%] 1 drop BOTH EYES BID PRN 02/08/23 02/08/23 Hi story Triamcinolone 0.025% Cream 1 applic TOPICAL BID PRN 02/08/23 02/08/23 History [Kenalog 0.025% Cream] Allergies Allergy/AdvReac Type Severity Reaction Status Date / Time clindamycin Allergy Rash/Hives Verified 02/08/23 14:13 Penicillins Allergy Rash/Hives Verified 02/08/23 14:13 Sulfa (Sulfonamide Allergy itching, Verified 02/08/23 14:13 Antibiotics) passed out, weak codeine AdvReac Rash/Hives Verified 02/08/23 14:13 Physical Exam Vitals: Vital Signs Temp Pulse Pulse Resp BP BP Pulse Ox 02/09/23 03:57 98.1 F 58 L 18 138/67 95 02/09/23 02:00 16 02/08/23 23:16 98.4 F 58 L 16 140/65 95 02/08/23 21:00 98.7 F 75 16 158/72 95 02/08/23 20:00 58 L 16 02/08/23 18:47 98.2 F 75 16 142/67 98 02/08/23 16:41 97.8 F 70 16 157/72 97 02/08/23 16:21 97.6 F 70 16 157/70 97 02/08/23 16:14 97.4 F L 68 16 164/75 98 02/08/23 14:49 98.6 F 60 16 182/77 97 02/08/23 14:18 98.1 F 57 L 17 152/81 99 02/08/23 12:00 57 L 18 157/70 98 02/08/23 11:57 98.3 F 86 20 127/66 98 Intake and Output 02/08/23 02/09/23 02/09/23 22:59 06:59 14:59 Intake Total 914.125 141.875 Balance 914.125 141.875 Intake: Intake, IV Titration 458.125 141.875 Amount Immune Globulin ( 458.125 141.875 Gammagard) 20 gm In Empty Bag 1 bag @ Per Protocol IV .Q0M [facility] Rx#: [id number] Oral 118 Blood Product 338 Platelet Pheresis Pas 338 Psoralen Unit [id number] Other: # Voids 1 Weight 77 kg - Constitutional General appearance: no acute distress - EENT Eyes: EOMI, PERRLA ENT: hearing grossly normal, normal oropharynx - Neck Neck: no lymphadenopathy Thyroid: bilateral: normal size - Respiratory Respiratory: bilateral: CTA - Cardiovascular Rhythm: regular Heart sounds: normal: S1, S2 - Gastrointestinal General gastrointestinal: normal bowel sounds, soft - Integumentary Extensive bruising left lower extremity below the knee, extending to the ankle. It is also associated redness in the lower half, extending to just above the ankle, which is mildly warm to touch, suggestive of cellulitis - Neurologic Neurologic: CNII-XII intact - Musculoskeletal Musculoskeletal: strength equal bilaterally - Psychiatric Psychiatric: A&O x's 3, appropriate affect Results CBC & Chem 7: 02/08/23 12:55 02/08/23 12:55 Labs: Abnormal Lab Results - Last 24 Hours (Table) 02/08/23 02/08/23 02/09/23 Range/Units 12:55 12:55 06:38 RBC 2.96 L (4.30-5.90) m/uL Hgb 9.7 L (13.0-17.5) gm/dL Hct 27.5 L (39.0-53.0) % Plt Count 7 L* (150-450) k/uL Lymphocytes # 0.8 L (1.0-4.8) k/uL BUN 21 H (9-20) mg/dL Glucose 108 H (74-99) mg/dL POC Glucose (mg/dL) 215 H (70-110) mg/dL Total Bilirubin 1.7 H (0.2-1.3) mg/dL Total Protein 6.2 L (6.3-8.2) g/dL Comments: Extremity ultrasound report reviewed Venous US: report reviewed Assessment and Plan (1) Thrombocytopenia Narrative/Plan: The patient had a prior history of, cytopenia, consistent with ITP in 12/01. He responded very well to steroids and IVIG, and has been in remission after completing his taper of steroids at that time. - His current episode appears to be quite consistent with ITP relapse. Soon pr ovoking factors could be development of cellulitis related to the left lower extremity. Idiopathic relapse is also possible at this time, as it is possible that the drop in platelets occurred even prior to him having the leg from a. - The patient denies any obvious bleeding, other than significant bruising associated with his left lower extremity. He was taking baby aspirin at home, but this was discontinued by his PCP after his results became available. He states that his last dose was either yesterday or the day before. - Case was discussed in detail with the ER physician. The patient was recommended to be started on high-dose IV steroids. He was also given IVIG. He has received 0.5 g/kg dose yesterday, and will receive an additional dose of the same amount today. - Repeat labs to check for any underlying causes - Patient also received 1 unit of platelet transfusion after starting steroids. CBC from today is awaited - As platelets are in a safe range, switch to oral steroids and start taper. - Continue to hold any antiplatelet agents or NSAIDs till platelet counts are greater than 50,000 Current Visit: Yes Status: Acute Code(s): D69.6 - THROMBOCYTOPENIA, UNSPECIFIED SNOMED Code(s): 628858926
[2023-02-09] MEDS ORDERED: NON FORMULARY DRUG IV SCH (09:00)
[2023-02-09 09:16] LABS: Basophils % (A) 0 %; Eosinophils % (A) 0 %; HCT 25.7 % (39.0-53.0); HGB 8.8 gm/dL (13.0-17.5); Lymphocytes # (A) 0.3 k/uL (1.0-4.8); Lymphocytes % (A) 4 %; MCH 31.8 pg (25.0-35.0); MCHC 34.2 g/dL (31.0-37.0); MCV 93.1 fL (80.0-100.0); Mean Platelet Volume 11.4; Monocytes # (A) 0.1 k/uL (0-1.0); Monocytes % (A) 2 %; Neutrophils # (A) 5.4 k/uL (1.3-7.7); Neutrophils % (A) 93 %; RBC 2.76 m/uL (4.30-5.90); RDW 14.2 % (11.5-15.5); WBC 5.8 k/uL (3.8-10.6)
[2023-02-09 09:20] LABS: Albumin 3.4 g/dL (3.5-5.0); Bilirubin, Delta 0.3 mg/dL (0.0-0.2); Bilirubin,Unconjugated 0.8 mg/dL (0.0-1.1); Calcium 8.7 mg/dL (8.4-10.2); Potassium 3.7 mmol/L (3.5-5.1); Total Bilirubin 1.1 mg/dL (0.2-1.3); Total Protein 6.6 g/dL (6.3-8.2)
[2023-02-09 09:27] LABS: Platelet Count 35 k/uL (150-450)
[2023-02-09 09:34] LABS: Partial Thromboplastin Time 24.7 sec (22.0-30.0); Prothrombin Time 10.5 sec (9.0-12.0)
[2023-02-09] MEDS ORDERED: IMMUNE GLOBULIN (GAMMAGARD) 20 GM in EMPTY BAG 1 BAG IV ONE (10:00)
[2023-02-09] MEDS ORDERED: IMMUNE GLOBULIN (GAMMAGARD) 20 GM in EMPTY BAG 1 BAG IV SCH ×2 (10:00→12:00)
[2023-02-09] MEDS: IMMUNE GLOBULIN (GAMMAGARD) 20 GM in EMPTY BAG 1 BAG IV SCH ×2 (11:40→16:45)
[2023-02-09] MEDS ORDERED: hydrALAZINE HCL 25 MG TAB PO PRN (14:12)
--- NOTE | 2023-02-09 14:17 | P.PN ---
Subjective This is a pleasant 87 years old male with multiple medical problems including ITP, immune thrombocytopenic purpura, Atrial Fibrillation, Hypertension, Osteoarthritis (OA), benign prostatic hypertrophy, aortic aneurysm status post repair, glaucoma Presents because of the leg number was. Also was sent by PCP for thrombocytopenia. Information were obtained from the patient and daughter at bedside. Patient hit his leg when he slipped trying to get into the car of his son about a week ago, he had some abrasion and trauma to the front of his left leg, since then his left leg was swelling with redness progressive, he went to see his PCP Dr. Perez yesterday, as per daughter and patient Dr. Perez ordered ultrasound of the left leg which was negative for DVT however he call him today stating that he has low platelet count about 4000 and he has came to come to emergency room. Patient is denying any chest pain or dyspnea or coughing. No abdominal pain vomiting or diarrhea. No dysuria or urgency. He says that last year he had an episode of low platelet count at [address] Alarcon attributed to the called vaccine he received Patient denies smoking alcohol or illicit drugs. CBC showing hemoglobin of 9.7, platelet count 7000, BMP and liver enzymes were unremarkable. Bilirubin is slightly elevated 1.7. And emergency room patient received immunoglobulin and a Medrol 60 mg and supervisor glycerin was contacted who recommended patient to be admitted to the hospital. 02/09/2023 Patient petechia in the upper and lower extremities is stable, no more episodes of bleeding Left leg swelling and warmth and tenderness improving slightly today, we'll keep monitoring for another 24-48 hours. Patient is afebrile and vitals are stable. Platelet count actually improved today to 35,000, patient was started on IVIG per supervisor glycerin team, also he is on some Medrol 60 mg we going to taper the dose down to 40 mg. Blood pressure is slightly elevated 114 now systolic blood pressure, therefore we going to add hydralazine when necessary with 4 high blood pressure. Also since his blood platelet count start improving were going to discontinue No rvasc and start his spironolactone and losartan as well as a statin. Keep monitoring platelet count closely Keep patient on antibiotic with cefazolin. Objective - Vital Signs Vital signs: Vital Signs Temp 97.9 F 02/09/23 11:52 Pulse 66 02/09/23 11:52 Resp 16 02/09/23 11:52 BP 149/87 02/09/23 11:52 Pulse Ox 96 02/09/23 11:52 FiO2 Intake & Output 02/08/23 02/09/23 02/09/23 18:59 06:59 18:59 Intake Total 900.667 200.000 483.333 Balance 900.667 200.000 483.333 Weight 77 kg 76.7 kg Intake: Intake, IV Titration 444.667 200.000 123.333 Amount Immune Globulin ( 123.333 Gammagard) 20 gm In Empty Bag 1 bag @ 40 mls/hr IV .Q5H [facility] Rx#:[id number] Immune Globulin ( 44.667 Gammagard) 20 gm In Empty Bag 1 bag @ Per Protocol IV .Q0M [facility] Rx#: [id number] Immune Globulin ( 400 200.000 Gammagard) 20 gm In Empty Bag 1 bag @ Per Protocol IV .Q0M [facility] Rx#: [id number] Oral 118 360 Blood Product 338 Platelet Pheresis Pas 338 Psoralen Unit [id number] Other: # Voids 1 - Exam GENERAL: The patient is alert and oriented x3, not in any acute distress. Well developed, well nourished. HEENT: Pupils are round and equally reacting to light. EOMI. No scleral icterus. No conjunctival pallor. Normocephalic, atraumatic. No pharyngeal erythema. No thyromegaly. CARDIOVASCULAR: S1 and S2 present. No murmurs, rubs, or gallops. PULMONARY: Chest is clear to auscultation, no wheezing or crackles. ABDOMEN: Soft, nontender, nondistended, normoactive bowel sounds. No palpable organomegaly. MUSCULOSKELETAL: No joint swelling or deformity. -EXTREMITIES: No cyanosis, clubbing, or pedal edema. Left leg is swollen with erythema and warmth and tenderness involving most of the left leg, improving slowly NEUROLOGICAL: Gross neurological examination did not reveal any focal deficits. -SKIN: No rashes. Bilateral extremity petechiae. More of the lower extremity - Labs CBC & Chem 7: 02/09/23 08:21 02/09/23 08:21 Labs: Abnormal Lab Results - Last 24 Hours (Table) 02/09/23 02/09/23 02/09/23 Range/Units 06:38 08:21 08:21 RBC 2.76 L (4.30-5.90) m/uL Hgb 8.8 L (13.0-17.5) gm/dL Hct 25.7 L (39.0-53.0) % Plt Count 35 L D (150-450) k/uL Lymphocytes # 0.3 L (1.0-4.8) k/uL BUN 25 H (9-20) mg/dL Glucose 217 H (74-99) mg/dL POC Glucose (mg/dL) 215 H (70-110) mg/dL Delta Bilirubin 0.3 H (0.0-0.2) mg/dL Albumin 3.4 L (3.5-5.0) g/dL Assessment and Plan Assessment: Acute thrombocytopenia, recurrent, most likely related to new thrombocytopenic purpura Acute left leg swelling, with a Ish and erythema suspicious for cellulitis, rule out bleeding. History of chronic atrial fibrillation Hypertension Hyperlipidemia History of glaucoma Plan: Hold aspirin and other blood thinners Continue with IV Solu-Medrol, at the lower dose of 40 mg Hematology/oncology consult Consult infectious disease for antibiotic treatment. Continue with cefazolin Resume losartan and spironolactone and statin Labs and medication were reviewed.. Continue same treatment. Continue with symptomatic treatment. Resume home medication. Monitor labs and vitals. DVT and GI prophylaxis. Further recommendations as per clinical course of the patient DVT prophylaxis: no Subcutaneous heparin GI Prophylaxis: Pepcid PT/OT: Pending Prognosis is guarded
[2023-02-09] MEDS ORDERED: methylPREDNISolone SOD SUCCI 125 MG/2 ML VIAL IV SCH (16:00)
--- NOTE | 2023-02-09 16:34 | P.PN ---
Subjective Progress Note Date: 02/09/23 Principal diagnosis: Left leg cellulitis Patient is a 87-year-old male with a past medical history significant for atrial fibrillation hypertension did have ITP, benign prostatic hypertrophy aortic aneurysm patient apparently did hit his leg when he was slipped, no pres ent to the hospital with extensive bruising redness to the left leg along with a low platelet count Doppler was negative for DVT. on today's evaluation that is 02/09/2023, the patient denies having any fever or chills, the patient is breathing comfortably on room air no chest pain or shortness of breath or cough left leg swelling and redness has slightly decreased no wound or any drainage Objective - Vital Signs Vital signs: Vital Signs Temp 97.9 F 02/09/23 11:52 Pulse 66 02/09/23 11:52 Resp 16 02/09/23 11:52 BP 149/87 02/09/23 11:52 Pulse Ox 96 02/09/23 11:52 FiO2 Intake & Output 02/08/23 02/09/23 02/09/23 18:59 06:59 18:59 Intake Total 900.667 200.000 483.333 Balance 900.667 200.000 483.333 Weight 77 kg 76.7 kg Intake: Intake, IV Titration 444.667 200.000 123.333 Amount Immune Globulin ( 123.333 Gammagard) 20 gm In Empty Bag 1 bag @ 40 mls/hr IV .Q5H [facility] Rx#:[id number] Immune Globulin ( 44.667 Gammagard) 20 gm In Empty Bag 1 bag @ Per Protocol IV .Q0M [facility] Rx#: [id number] Immune Globulin ( 400 200.000 Gammagard) 20 gm In Empty Bag 1 bag @ Per Protocol IV .Q0M [facility] Rx#: [id number] Oral 118 360 Blood Product 338 Platelet Pheresis Pas 338 Psoralen Unit [id number] Other: # Voids 1 - Exam GENERAL DESCRIPTION: An elderly male lying in bed in no distress RESPIRATORY SYSTEM: Unlabored breathing , decreased breath sounds at bases HEART: S1 S2 regular rate and rhythm , ABDOMEN: Soft , no tenderness EXTREMITIES: Left leg redness has slightly decreased - Labs CBC & Chem 7: 02/09/23 08:21 02/09/23 08:21 Labs: Abnormal Lab Results - Last 24 Hours (Table) 02/09/23 02/09/23 02/09/23 Range/Units 06:38 08:21 08:21 RBC 2.76 L (4.30-5.90) m/uL Hgb 8.8 L (13.0-17.5) gm/dL Hct 25.7 L (39.0-53.0) % Plt Count 35 L D (150-450) k/uL Lymphocytes # 0.3 L (1.0-4.8) k/uL BUN 25 H (9-20) mg/dL Glucose 217 H (74-99) mg/dL POC Glucose (mg/dL) 215 H (70-110) mg/dL Delta Bilirubin 0.3 H (0.0-0.2) mg/dL Albumin 3.4 L (3.5-5.0) g/dL Assessment and Plan (1) Left leg cellulitis Current Visit: Yes Status: Acute Code(s): L03.116 - CELLULITIS OF LEFT LOWER LIMB SNOMED Code(s): 859023184 Plan: 1patient in the hospital left lower extremity swelling bruising and also have a complaint of erythema concerning for cellulitis likely from gram-positive skin sean in this patient who did have injury to the left leg about a week ago and also noted to have significant thrombocytopenia will need to call for the gram- positive skin sean and no risk factor for MRSA infection 2-patient with multiple antibiotic allergies that would limit the number of antibiotics safe to use 3-patient to continue with cefazolin 2 g every 8 hours and monitor clinical course closely Time with Patient: Less than 30
[2023-02-09 17:05] LABS: Glucose,Whole Blood 244 mg/dL (70-110)
[2023-02-09 20:02] LABS: Glucose,Whole Blood 194 mg/dL (70-110)
[2023-02-09] MEDS: ATORVASTATIN 40 MG TAB PO SCH (20:19)
[2023-02-09] MEDS: LATANOPROST 0.005% OPHTH DROPS 2.5 ML BTL BOTH EYES SCH (20:31)
[2023-02-10] MEDS: methylPREDNISolone SOD SUCCI 125 MG/2 ML VIAL IV SCH (02:01)
[2023-02-10] MEDS: METOPROLOL TARTRATE 25 MG TAB PO SCH ×2 (04:35→20:47)
[2023-02-10] MEDS ORDERED: CALCIUM CARBONATE 500 MG CHEWABLE PO PRN (04:49)
[2023-02-10 05:58] LABS: Glucose,Whole Blood 176 mg/dL (70-110)
[2023-02-10] MEDS: INSULIN ASPART (NovoLOG) 100 UNIT/ML VIAL SQ SCH ×4 (06:08→20:47)
[2023-02-10] MEDS: PANTOPRAZOLE 40 MG TABLET PO SCH (06:21)
[2023-02-10] MEDS ORDERED: methylPREDNISolone SOD SUCCI 40 MG/ML 1 ML VIAL IV SCH (08:00)
[2023-02-10] MEDS: SPIRONOLACTONE 25 MG TAB PO SCH (08:50)
[2023-02-10] MEDS: LOSARTAN 50 MG TAB PO SCH (08:50)
[2023-02-10 11:06] LABS: HCT 26.2 % (39.0-53.0); HGB 8.6 gm/dL (13.0-17.5); MCH 30.8 pg (25.0-35.0); MCHC 32.8 g/dL (31.0-37.0); Mean Platelet Volume 9.4; RBC 2.79 m/uL (4.30-5.90); RDW 14.3 % (11.5-15.5); WBC 10.3 k/uL (3.8-10.6)
[2023-02-10 11:23] LABS: Platelet Count 100 k/uL (150-450)
[2023-02-10 11:34] LABS: Glucose,Whole Blood 228 mg/dL (70-110)
[2023-02-10] MEDS ORDERED: TRIAMCINOLONE 0.1% CREAM 80 GM TUBE TOPICAL PRN (13:15)
--- NOTE | 2023-02-10 14:17 | XR ---
EXAMINATION TYPE: XR tibia fibula 2 views LT DATE OF EXAM: 02/10/2023 Comparison: 04/19/2021 Clinical History: 87-year-old male left [place] injury Findings: Postsurgical change of prior left total knee arthroplasty. The distal femoral and proximal tibial com ponents of the prosthesis appear well seated. Mild generalized soft tissue swelling is present. Vascular calcifications noted. No acute fracture. A nkle mortise appears grossly intact. Generalized muscle atrophy. Degenerative spurring at the ankle joint. Impression: Some generalized soft tissue swelling and generalized muscle atrophy. No acute osseous abnormality se en.
--- NOTE | 2023-02-10 14:21 | P.PN ---
Subjective Progress Note Date: 02/10/23 Principal diagnosis: ITP, refractory likely secondary to lower extremity cellulitis In follow-up patient reports feeling well, no fevers, tolerating a diet, no acute changes in bowel or bladder, he denies any bleeding, the left lower extremity pain is improved, bruising/petechiae is persistent but, not progressive, the redness slowly improving. Objective - Vital Signs Vital signs: Vital Signs Temp 97.6 F 02/10/23 08:00 Pulse 91 02/10/23 08:00 Resp 16 02/10/23 08:00 BP 118/61 02/10/23 08:00 Pulse Ox 97 02/10/23 08:00 FiO2 Intake & Output 02/09/23 02/10/23 02/10/23 18:59 06:59 18:59 Intake Total 1777.333 92.667 50 Balance 1777.333 92.667 50 Weight 72.2 kg Intake: IV 450 50 Immune Globulin ( 400 Gammagard) 20 gm In Empty Bag 1 bag @ 40 mls/hr IV .Q5H [facility] Rx#:[id number] ceFAZolin 2 gm In Sodium 50 50 Chloride 0.9% 50 ml @ 100 mls/hr IVPB Q8HR [facility] Rx# :[id number] Intake, IV Titration 307.333 92.667 Amount Immune Globulin ( 307.333 92.667 Gammagard) 20 gm In Empty Bag 1 bag @ 40 mls/hr IV .Q5H [facility] Rx#:[id number] Oral 1020 0 Other: # Voids 2 - Constitutional General appearance: Present: average body habitus, cooperative, no acute distress - EENT Eyes: Present: anicteric sclerae, EOMI ENT: Present: hearing grossly normal, normal oropharynx - Respiratory Details: Respirations even and unlabored - Peripheral edema leg Peripheral Edema: left: 1+ - Integumentary Integumentary Comment(s): Left lower extremity redness, swelling, bruising/petechiae, most consistent with cellulitis, patient reporting improvements. Still some pain to the touch, not unrealistic - Neurologic Neurologic: Present: CNII-XII intact - Musculoskeletal Musculoskeletal: Present: strength equal bilaterally - Psychiatric Psychiatric: Present: A&O x's 3, appropriate affect, intact judgment & insight - Labs CBC & Chem 7: 02/10/23 10:13 02/09/23 08:21 Labs: Abnormal Lab Results - Last 24 Hours (Table) 02/09/23 02/09/23 02/10/23 Range/Units 17:03 20:01 05:52 RBC (4.30-5.90) m/uL Hgb (13.0-17.5) gm/dL Hct (39.0-53.0) % Plt Count (150-450) k/uL POC Glucose (mg/dL) 244 H 194 H 176 H (70-110) mg/dL 02/10/23 02/10/23 Range/Units 10:13 11:32 RBC 2.79 L (4.30-5.90) m/uL Hgb 8.6 L (13.0-17.5) gm/dL Hct 26.2 L (39.0-53.0) % Plt Count 100 L D (150-450) k/uL POC Glucose (mg/dL) 228 H (70-110) mg/dL Assessment and Plan (1) Thrombocytopenia Current Visit: Yes Status: Acute Priority: High Code(s): D69.6 - THROMBOCYTOPENIA, UNSPECIFIED SNOMED Code(s): 924220676 (2) Left leg cellulitis Current Visit: Yes Status: Acute Priority: High Code(s): L03.116 - CELLULITIS OF LEFT LOWER LIMB SNOMED Code(s): 698704316 (3) Normocytic normochromic anemia Current Visit: Yes Status: Acute Priority: Medium Code(s): D64.9 - ANEMIA, UNSPECIFIED SNOMED Code(s): 31857621 Plan: ITP -History of the same. -Relapsed secondary to acute infection in the left lower extremity -Thrombocytopenia workup ordered -Patient is status post IVIG and he was initiated on IV steroids. Platelet count 100,000 today -IV steroids changed to PO today. -Steroid taper RX sent to patient's [facility] pharmacy Normocytic, normochromic anemia- -On office chart review, decrease in hemoglobin noted last fall. -No iron deficiency on workup. -Patient was previously on B12. May consider resuming in the outpatient setting. -Transfuse for hemoglobin less than 7. Patient has not required PRBC transfusion so far. Follow-up one week with Hematology-appointment in the chart. Okay from Hem/Onc to be discharged once he is cleared by Attending another consulting Physicians.
[2023-02-10] MEDS: BRIMONIDINE TARTRATE 0.2% DROPS 5 ML BTL BOTH EYES SCH ×2 (16:01→20:47)
[2023-02-10] MEDS: TIMOLOL 0.5% OPHTH DROPS 5 ML BTL BOTH EYES SCH ×2 (16:01→20:47)
[2023-02-10 16:34] LABS: Glucose,Whole Blood 162 mg/dL (70-110)
[2023-02-10] MEDS: predniSONE 20 MG TAB PO SCH (18:06)
--- NOTE | 2023-02-10 18:19 | P.CNOR ---
History of Present Illness - [facility] Consult date: 02/10/23 History of present illness: This patient is an 87- year old male with a past medical history of ITP, atrial fibrillation, hypertension that presented to [facility] emergency department on 02/08/23. Patient injured his left lower leg over a week ago after slipping getting in car, and presented to his PCP for evaluation. Labs were dr spencer by his PCP and patient's platelets were very low at 4, therefore he was sent to the emergency department for relapse of ITP. Patient was admitted under the care of internal medicine with consults placed to hematology, infectious disease. He was also started on IV antibiotics for left lower extremity cellulitis. Orthopedic surgery is consulted for further evaluation of his left lower leg injury. Patient is evaluated bedside this afternoon with Dr. Larson. Patient's daughter and granddaughter are bedside. Patient states his left lower leg pain has improved from admission. He is able to ambulate without pain. Patient notes he has a history of bilateral knee replacements by Dr. Kramer many years ago. He has no complaints at this time. He denies hip or knee pain. Past Medical History Past Medical History: Atrial Fibrillation, Eye Disorder, Hypertension, Myocardial Infarction (HI), Osteoarthritis (OA), Prostate Disorder, Renal Disease, Vascular Disorder Additional Past Medical History / Comment(s): AAA with repair x2, n ephrolithiasis with surgical removals, HI age unknown-found on EKG, BPH, arthritis bilateral knees with surgery, bilateral glaucoma, see Dr Land [facility] & P,. ITP-IVIG INFUSIONS. Last Myocardial Infarction Date:: unkn History of Any Multi-Drug Resistant Organisms: None Reported Past Surgical History: Appendectomy, Joint Replacement, Tonsillectomy Additional Past Surgical History / Comment(s): AAA repair x2, surgeries for kidney stone removals, bilateral cataract removals, colonoscopies, bilateral total knee replacements. Past Anesthesia/Blood Transfusion Reactions: No Reported Reaction Past Psychological History: No Psychological Hx Reported Smoking Status: Former smoker - Past Family History Father History Unknown: Yes Family Medical History: Myocardial Infarction (HI) Additional Family Medical History / Comment(s): Father had a HI in his 70s. Mother History Unknown: Yes Family Medical History: Musculoskeletal Disorder, Neurologic Disorder Additional Family Medical History / Comment(s): Mother had parkinsons. Medications and Allergies Home Medications Medication Instructions Recorded Confirmed Type Atorvastatin [Lipitor] 40 mg PO HS #30 tab 12/28/19 02/08/23 Rx Brimonidine Tartrate/Timolol 1 drop BOTH EYES BID 04/15/21 02/08/23 History [Combigan 0.2%-0.5% Eye Drops] Cyanocobalamin (Vitamin B-12) 5,000 mg SUBLINGUAL DAILY 12/05/21 02/08/23 History [Vitamin B12] Spironolactone [Aldactone] 25 mg PO DAILY 12/05/21 02/08/23 History amLODIPine [Norvasc] 5 mg PO HS 12/05/21 02/08/23 History Ascorbic Acid [Vitamin C] 500 mg PO DAILY 02/08/23 02/08/23 History Aspirin EC [Ecotrin Low Dose] 81 mg PO HS 02/08/23 02/08/23 History Latanoprost/Pf [Latanoprost 0.005% 1 drop BOTH EYES HS 02/08/23 02/08/23 History Eye Drop] Losartan Potassium 100 mg PO DAILY 02/08/23 02/08/23 History Multivitamins, Thera [Multivitamin 1 tab PO DAILY 02/08/23 02/08/23 History (formulary)] Olopatadine HCl [Patanol 0.1%] 1 drop BOTH EYES DAILY 02/08/23 02/09/23 History Triamcinolone 0.025% Cream 1 applic TOPICAL BID PRN 02/08/23 02/08/23 History [Kenalog 0.025% Cream] Brimonidine Tartrate/Timolol 1 drop BOTH EYES HS 02/09/23 02/09/23 History [Combigan 0.2%-0.5% Eye Drops] predniSONE [Deltasone] 20 mg PO DAILY #74 tab 02/10/23 Rx Allergies Allergy/AdvReac Type Severity Reaction Status Date / Time clindamycin Allergy Rash/Hives Verified 02/08/23 14:13 Penicillins Allergy Rash/Hives Verified 02/08/23 14:13 Sulfa (Sulfonamide Allergy itching, Verified 02/08/23 14:13 Antibiotics) passed out, weak codeine AdvReac Rash/Hives Verified 02/08/23 14:13 Physical Examination On examination, patient is sitting up in bed in no apparent distress. He is alert and orientated x3. His head appears normocephalic and atraumatic. His breathing appears non-labored. On inspection of his bilateral upper extremities, no obvious deformities or signs of trauma. On inspection of his RLE, no signs of trauma. On inspection of the left lower extremity, there is a healed incision at the anterior knee consistent with a prior TKA. There is significant ecchymosis of the lower leg. No open wound or lacerations. No pain with palpation of the left knee. No knee effusion. No pain with PROM of the left hip, knee. Patient is able to perform a straight leg raise without pain or issue. Motor and sensory function intact LLE. LLE warm and well perfused. Calf is soft. Results Left tibia/fibula x-ray 02/10/23: No acute fractures. Prior stable TKA. - Labs Labs: Abnormal Lab Results - Last 24 Hours (Table) 02/09/23 02/10/23 02/10/23 Range/Units 20:01 05:52 10:13 RBC (4.30-5.90) m/uL Hgb (13.0-17.5) gm/dL Hct (39.0-53.0) % Plt Count (150-450) k/uL POC Glucose (mg/dL) 194 H 176 H (70-110) mg/dL [place]A Screen POSITIVE A (NEGATIVE) 02/10/23 02/10/23 02/10/23 Range/Units 10:13 11:32 16:32 RBC 2.79 L (4.30-5.90) m/uL Hgb 8.6 L (13.0-17.5) gm/dL Hct 26.2 L (39.0-53.0) % Plt Count 100 L D (150-450) k/uL POC Glucose (mg/dL) 228 H 162 H (70-110) mg/dL [place]A Screen (NEGATIVE) H & H 02/08/23 02/09/23 02/10/23 Range/Units 12:55 08:21 10:13 Hgb 9.7 L 8.8 L 8.6 L (13.0-17.5) gm/dL Hct 27.5 L 25.7 L 26.2 L (39.0-53.0) % Coagulation 02/09/23 Range/Units 08:21 INR 1.0 (<1.2) Result Diagrams: 02/10/23 10:13 02/09/23 08:21 Assessment and Plan Assessment: Left lower leg contusion History of bilateral total knee arthroplasty Plan: - Patient was also evaluated by Dr. Larson. Clinical and imaging findings were discussed with patient and his family. No fractures identified on x-rays of the tibia/fibula. Prior left TKA appears stable. No surgical intervention recommended. Patient may weight bear to tolerance on left lower extremity. Recommend evaluation by physical therapy to increase mobilization if cleared from medical standpoint. - Patient may follow-up in the office as an outpatient as needed. We will sign off at this time.
[2023-02-10 20:17] LABS: Glucose,Whole Blood 155 mg/dL (70-110)
[2023-02-10] MEDS: ATORVASTATIN 40 MG TAB PO SCH (20:47)
[2023-02-10] MEDS: LATANOPROST 0.005% OPHTH DROPS 2.5 ML BTL BOTH EYES SCH (20:50)
[2023-02-10] MEDS ORDERED: NON FORMULARY DRUG (Brimonidine Tartrate/Timolol [Combigan 0.2%-0.5% Eye Drops] 5 ML Ml) BOTH EYES SCH (21:00)
--- NOTE | 2023-02-10 21:22 | P.PN ---
Subjective Progress Note Date: 02/10/23 Principal diagnosis: Left leg cellulitis Patient is a 87-year-old male with a past medical history significant for atrial fibrillation hypertension did have ITP, benign prostatic hypertrophy aortic aneurysm patient apparently did hit his leg when he was slipped, no pres ent to the hospital with extensive bruising redness to the left leg along with a low platelet count Doppler was negative for DVT. on today's evaluation that is 02/10/2023, the patient is afebrile, the patient is breathing comfortably on room air, pt denies chest pain or shortness of breath or cough left leg swelling and redness has decreased no wound or any drainage Objective - Vital Signs Vital signs: Vital Signs Temp 97.6 F 02/10/23 08:00 Pulse 91 02/10/23 08:00 Resp 16 02/10/23 08:00 BP 118/61 02/10/23 08:00 Pulse Ox 97 02/10/23 08:00 FiO2 Intake & Output 02/09/23 02/10/23 02/10/23 18:59 06:59 18:59 Intake Total 1777.333 92.667 50 Balance 1777.333 92.667 50 Intake: IV 450 50 Immune Globulin ( 400 Gammagard) 20 gm In Empty Bag 1 bag @ 40 mls/hr IV .Q5H [facility] Rx#:[id number] ceFAZolin 2 gm In Sodium 50 50 Chloride 0.9% 50 ml @ 100 mls/hr IVPB Q8HR [facility] Rx# :[id number] Intake, IV Titration 307.333 92.667 Amount Immune Globulin ( 307.333 92.667 Gammagard) 20 gm In Empty Bag 1 bag @ 40 mls/hr IV .Q5H [facility] Rx#:[id number] Oral 1020 0 Other: # Voids 2 - Exam GENERAL DESCRIPTION: An elderly male lying in bed in no distress RESPIRATORY SYSTEM: Unlabored breathing , decreased breath sounds at bases HEART: S1 S2 regular rate and rhythm , ABDOMEN: Soft , no tenderness EXTREMITIES: Left leg redness has slightly decreased - Labs CBC & Chem 7: 02/10/23 10:13 02/09/23 08:21 Labs: Abnormal Lab Results - Last 24 Hours (Table) 02/09/23 02/09/23 02/10/23 Range/Units 17:03 20:01 05:52 RBC (4.30-5.90) m/uL Hgb (13.0-17.5) gm/dL Hct (39.0-53.0) % Plt Count (150-450) k/uL POC Glucose (mg/dL) 244 H 194 H 176 H (70-110) mg/dL 02/10/23 02/10/23 Range/Units 10:13 11:32 RBC 2.79 L (4.30-5.90) m/uL Hgb 8.6 L (13.0-17.5) gm/dL Hct 26.2 L (39.0-53.0) % Plt Count 100 L D (150-450) k/uL POC Glucose (mg/dL) 228 H (70-110) mg/dL Assessment and Plan (1) Left leg cellulitis Current Visit: Yes Status: Acute Priority: High Code(s): L03.116 - CELLULITIS OF LEFT LOWER LIMB SNOMED Code(s): 228873326 Plan: 1patient in the hospital left lower extremity swelling bruising and also have a complaint of erythema concerning for cellulitis likely from gram-positive skin sean in this patient who did have injury to the left leg about a week ago and also noted to have significant thrombocytopenia will need to call for the gram- positive skin sean and no risk factor for MRSA infection 2-patient with multiple antibiotic allergies that would limit the number of antibiotics safe to use 3-patient seems to have shown clinical improvment , to continue with cefazolin 2 g every 8 hours and monitor clinical course closely Time with Patient: Less than 30
--- NOTE | 2023-02-11 03:20 | PN ---
PROGRESS NOTE DATE OF SERVICE: 02/10/2023 SUBJECTIVE: This is an 87-year-old gentleman, who was admitted with left leg cellulitis and some hematoma, also had thrombocytopenia. The patient received platelet transfusions and IVIG. The patient is rather intolerant to IV steroids. The platelets are 100 today. PAST MEDICAL HISTORY: Reviewed. REVIEW OF SYSTEMS: A 14-point review is negative except as mentioned earlier. CURRENT MEDICATIONS: Reviewed, include . Doses and rest of medication noted. PHYSICAL EXAMINATION: VITAL SIGNS: Pulse is 91, blood pressure 118/49, respirations 16. CHEST: Clear to auscultation. CARDIOVASCULAR: S1, S2 muffled. ABDOMEN: Soft. LEG: Left leg, significant hematoma, tenderness, pain present. LABORATORY DATA: Reviewed. ASSESSMENT: 1. Left leg hematoma. 2. Thrombocytopenia, possibly acute exacerbation. 3. Atrial fibrillation. 4. History of myocardial infarction. 5. Multiple medical issues. 6. Gait dysfunction. RECOMMENDATION: This 87-year-old gentleman, who presented with multiple complex medical issues. At this time, I recommend x-ray series of the left lower limb, rule out any fracture. Orthopedic evaluation, PT, OT evaluation. Otherwise, closely follow with Hematology, Oncology and repeat labs in the morning. Increase ambulation. Once the patient is stabilized, going home and closely follow with multiple consultants. Further recommendations to follow. MMODL / IJN: [id number] / SID
[2023-02-11 06:13] LABS: Glucose,Whole Blood 162 mg/dL (70-110)
[2023-02-11] MEDS: INSULIN ASPART (NovoLOG) 100 UNIT/ML VIAL SQ SCH (06:25)
[2023-02-11] MEDS: PANTOPRAZOLE 40 MG TABLET PO SCH (06:25)
[2023-02-11 08:38] LABS: Protein, Total 6.6 g/dL (6.2-8.2)
[2023-02-11] MEDS: SPIRONOLACTONE 25 MG TAB PO SCH (08:40)
[2023-02-11] MEDS: LOSARTAN 50 MG TAB PO SCH (08:40)
[2023-02-11] MEDS: METOPROLOL TARTRATE 25 MG TAB PO SCH (08:41)
[2023-02-11] MEDS: predniSONE 20 MG TAB PO SCH (08:41)
[2023-02-11] MEDS: BRIMONIDINE TARTRATE 0.2% DROPS 5 ML BTL BOTH EYES SCH (08:42)
[2023-02-11] MEDS: TIMOLOL 0.5% OPHTH DROPS 5 ML BTL BOTH EYES SCH (08:43)
[2023-02-11 08:45] LABS: Basophils % (A) 0 %; Eosinophils % (A) 0 %; HCT 27.8 % (39.0-53.0); HGB 9.1 gm/dL (13.0-17.5); Lymphocytes # (A) 0.3 k/uL (1.0-4.8); Lymphocytes % (A) 4 %; MCH 31.2 pg (25.0-35.0); MCHC 32.8 g/dL (31.0-37.0); MCV 94.9 fL (80.0-100.0); Mean Platelet Volume 8.9; Monocytes # (A) 0.2 k/uL (0-1.0); Monocytes % (A) 3 %; Neutrophils # (A) 6.5 k/uL (1.3-7.7); Neutrophils % (A) 92 %; Platelet Count 121 k/uL (150-450); RBC 2.93 m/uL (4.30-5.90); RDW 14.3 % (11.5-15.5)
[2023-02-11] MEDS ORDERED: MULTIVITAMINS, THERA 1 EACH TAB PO SCH (09:00)
[2023-02-11] MEDS ORDERED: CYANOCOBALAMIN 500 MCG TAB PO SCH (09:00)
[2023-02-11 09:16] LABS: Albumin 3.2 g/dL (3.5-5.0); Calcium 8.5 mg/dL (8.4-10.2); Potassium 4.3 mmol/L (3.5-5.1); Total Bilirubin 0.9 mg/dL (0.2-1.3); Total Protein 6.7 g/dL (6.3-8.2)
[2023-02-11 11:05] VITALS: BP 121/66; PULSE 80; RESP 16; TEMP 97.8
--- NOTE | 2023-02-11 14:05 | P.PN ---
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 Left lower extremity bruising/petechiae persist, not progressive, the redness and pain in the leg are slowly improving. Objective - Vital Signs Vital signs: Vital Signs Temp 97.8 F 02/11/23 08:00 Pulse 80 02/11/23 08:00 Resp 16 02/11/23 08:00 BP 121/66 02/11/23 08:00 Pulse Ox 97 02/11/23 08:00 FiO2 Intake & Output 02/10/23 02/11/23 02/11/23 18:59 06:59 18:59 Intake Total 218 50 Balance 218 50 Intake: IV 100 50 ceFAZolin 2 gm In Sodium 100 50 Chloride 0.9% 50 ml @ 100 mls/hr IVPB Q8HR MAURA Rx# :[id number] Oral 118 0 Other: # Voids 1 1 - Constitutional General appearance: Present: average body habitus, cooperative, no acute distress - EENT Eyes: Present: anicteric sclerae, EOMI ENT: Present: hearing grossly normal - Respiratory Details: resp even and unlabored - Cardiovascular Details: skin warm and dry, lt pedal pulse is 2+ - Neurologic Neurologic: Present: CNII-XII intact - Musculoskeletal Musculoskeletal: Present: strength equal bilaterally - Psychiatric Psychiatric: Present: A&O x's 3, appropriate affect, intact judgment & insight - Labs CBC & Chem 7: 02/11/23 08:21 02/11/23 08:21 Labs: Abnormal Lab Results - Last 24 Hours (Table) 02/10/23 02/10/23 02/10/23 Range/Units 10:13 16:32 20:15 RBC (4.30-5.90) m/uL Hgb (13.0-17.5) gm/dL Hct (39.0-53.0) % Plt Count (150-450) k/uL Lymphocytes # (1.0-4.8) k/uL Chloride (98-107) mmol/L BUN (9-20) mg/dL Glucose (74-99) mg/dL POC Glucose (mg/dL) 162 H 155 H (70-110) mg/dL Albumin (3.5-5.0) g/dL [facility] Screen POSITIVE A (NEGATIVE) 02/11/23 02/11/23 02/11/23 Range/Units 06:11 08:21 08:21 RBC 2.93 L (4.30-5.90) m/uL Hgb 9.1 L (13.0-17.5) gm/dL Hct 27.8 L (39.0-53.0) % Plt Count 121 L (150-450) k/uL Lymphocytes # 0.3 L (1.0-4.8) k/uL Chloride 108 H (98-107) mmol/L BUN 39 H (9-20) mg/dL Glucose 147 H (74-99) mg/dL POC Glucose (mg/dL) 162 H (70-110) mg/dL Albumin 3.2 L (3.5-5.0) g/dL [facility] Screen (NEGATIVE) - Imaging and Cardiology reviewed the x ray report of [facility] Assessment and Plan (1) Thrombocytopenia Status: Acute Priority: High Code(s): D69.6 - THROMBOCYTOPENIA, UNSPECIFIED SNOMED Code(s): 665511606 (2) Left leg cellulitis Status: Acute Priority: High Code(s): L03.116 - CELLULITIS OF LEFT LOWER LIMB SNOMED Code(s): 887928414 (3) Normocytic normochromic anemia Status: Acute Priority: Medium Code(s): D64.9 - ANEMIA, UNSPECIFIED SNOMED Code(s): 43459844 Plan: ITP -History of the same. -Relapsed secondary to acute infection in the left lower extremity -Thrombocytopenia workup still pending -Patient is status post IVIG, IV steroids, switched to oral pred yesterday. Platelet count 121,000 today -Steroid taper RX sent [facility]-pt informed and it is documented in the discharge plan Normocytic, normochromic anemia- -On office chart review, decrease in hemoglobin noted last fall. -No iron deficiency on workup. -Patient was previously on B12, started on B12 IM, will cont outpt. -Folic acid supplement started for elevated homocysteine levels Follow-up one week with Hematology-appointment in the chart.
[2023-02-11 14:16] LABS: Albumin 3.17 g/dL (3.80-4.90); Gamma Globulin 1.77 g/dL (0.70-1.50)
[2023-02-11 14:44] LABS: Free Kappa Lt Chain Qnt, Serum 2.49 mg/dL (0.33-1.94); Free Lambda Lt Chain Qnt, Seru 2.45 mg/dL (0.57-2.63)
[2023-02-12 13:09] LABS: ANA Pattern Speckled
--- NOTE | 2023-02-13 06:15 | P.DS ---
Providers Date of admission: 02/08/23 13:56 Expected date of discharge: 02/11/23 Attending physician: Tristan Stokes MD Consults: 02/08/23 13:56 Consult Physician Urgent Consulting Provider: Octaviano Gonzáles Consult Reason/Comments: Thrombocytopenia Do you want consulting provider notified?: Yes 02/08/23 15:44 Consult Physician Urgent Consulting Provider: Rylan Arellano Consult Reason/Comments: possible left leg cellulitis Do you want consulting provider notified?: Yes 02/10/23 12:48 Consult Physician Urgent Consulting Provider: Cristhian Leblanc Consult Reason/Comments: left leg injury Do you want consulting provider notified?: Yes Primary care physician: Jassi Perez Hospital Course: Final diagnosis Left leg hematoma thrombocytopenia, possibly acute exacerbation Atrial fibrillation Hypertension History of ITP History of myocardial infarction Gait dysfunction Discharge disposition Patient is being discharged in a stable condition with guarded prognosis to home. Patient will follow-up with Dr. Perez in the outpatient setting upon discharge. Patient is to continue with oral Keflex and prednisone taper and outpatient follow-up with hematology as scheduled. Total time taken is greater than 35 minutes. Hospital course This is a 87-year-old male who was recently admitted with left leg hematoma admission with concerns of thrombocytopenia and continued bleeding in that leg. Patient was evaluated by orthopedics underwent an x-ray with no fracture recommending conservative management. Swelling is improving and patient has been cleared consultations. Patient is anxious to go home. Patient reports to feeling well and will be discharged today. Patient encouraged to follow-up with primary care provider this week Currently no reports of chest pain, shortness of breath, or palpitations. Patient is afebrile. No reports of nausea or vomiting and patient is tolerating diet. Patient will be discharged home today. Guarded prognosis. Physical exam: Gen: This is a 87-year-old male who is awake, alert and oriented 3, thin built, well-nourished HEENT: Head is atraumatic, normocephalic. Pupils equal, round. Sclerae is anicteric. NECK: Supple. No JVD. No lymphadenopathy. No thyromegaly. LUNGS: Clear to auscultation. No wheezes or rhonchi. No intercostal retractions. HEART: S1, S2 are muffled ABDOMEN: Soft. Bowel sounds are present. No masses. No tenderness. EXTREMITIES: No pedal edema. No calf tenderness. Left lower extremity swelling improving NEUROLOGICAL: Patient is awake, alert and oriented x3. Cranial nerves 2 through 12 are grossly intact. Please refer to medication reconciliation sheet for a list of medications. The impression and plan of care has been dictated by Es Dhaliwal, Nurse Practitioner as directed. Dr. Kin MD I have performed a history and examination and MDM of this patient, discussed the same with the dictator, and agree with the dictator's assessment and plan as written ,documented as a scribe. Based on total visit time, I have performed more than 50% of the visit. Patient Condition at Discharge: Fair Plan - Discharge Summary Discharge Rx Participant: Yes New Discharge Prescriptions: New predniSONE [Deltasone] 20 mg PO DAILY #74 tab Cephalexin [Keflex] 500 mg PO Q8HR 7 Days #21 cap Metoprolol Tartrate [Lopressor] 25 mg PO BID #60 tab Calcium Carbonate [Tums] 1,000 mg PO QID PRN tab PRN Reason: Heartburn Continue Atorvastatin [Lipitor] 40 mg PO HS #30 tab Brimonidine Tartrate/Timolol [Combigan 0.2%-0.5% Eye Drops] 1 drop BOTH EYES BID Spironolactone [Aldactone] 25 mg PO DAILY Cyanocobalamin (Vitamin B-12) [Vitamin B-12] 5,000 mg SUBLINGUAL DAILY Triamcinolone 0.025% Cream [Kenalog 0.025% Cream] 1 applic TOPICAL BID PRN PRN Reason: around the eyes Multivitamins, Thera [Multivitamin (formulary)] 1 tab PO DAILY Ascorbic Acid [Vitamin C] 500 mg PO DAILY Olopatadine HCl [Patanol 0.1%] 1 drop BOTH EYES DAILY amLODIPine [Norvasc] 5 mg PO HS Losartan Potassium 100 mg PO DAILY Latanoprost/Pf [Latanoprost 0.005% Eye Drop] 1 drop BOTH EYES HS Aspirin EC [Ecotrin Low Dose] 81 mg PO HS Brimonidine Tartrate/Timolol [Combigan 0.2%-0.5% Eye Drops] 1 drop BOTH EYES HS Discharge Medication List Atorvastatin [Lipitor] 40 mg PO HS #30 tab 12/28/19 [Rx] Brimonidine Tartrate/Timolol [Combigan 0.2%-0.5% Eye Drops] 1 drop BOTH EYES BID 04/15/21 [History] Cyanocobalamin (Vitamin B-12) [Vitamin B-12] 5,000 mg SUBLINGUAL DAILY 12/05/21 [History] Spironolactone [Aldactone] 25 mg PO DAILY 12/05/21 [History] amLODIPine [Norvasc] 5 mg PO HS 12/05/21 [History] Ascorbic Acid [Vitamin C] 500 mg PO DAILY 02/08/23 [History] Aspirin EC [Ecotrin Low Dose] 81 mg PO HS 02/08/23 [History] Latanoprost/Pf [Latanoprost 0.005% Eye Drop] 1 drop BOTH EYES HS 02/08/23 [History] Losartan Potassium 100 mg PO DAILY 02/08/23 [History] Multivitamins, Thera [Multivitamin (formulary)] 1 tab PO DAILY 02/08/23 [History] Olopatadine HCl [Patanol 0.1%] 1 drop BOTH EYES DAILY 02/08/23 [History] Triamcinolone 0.025% Cream [Kenalog 0.025% Cream] 1 applic TOPICAL BID PRN 02/08/23 [History] Brimonidine Tartrate/Timolol [Combigan 0.2%-0.5% Eye Drops] 1 drop BOTH EYES HS 02/09/23 [History] predniSONE [Deltasone] 20 mg PO DAILY #74 tab 02/10/23 [Rx] Calcium Carbonate [Tums] 1,000 mg PO QID PRN tab 02/11/23 [Rx] Cephalexin [Keflex] 500 mg PO Q8HR 7 Days #21 cap 02/11/23 [Rx] Metoprolol Tartrate [Lopressor] 25 mg PO BID #60 tab 02/11/23 [Rx] Follow up Appointment(s)/Referral(s): Jassi Perez MD [Primary Care Provider] - 1-2 days Mayank Alarcon MD [STAFF PHYSICIAN] - 02/17/23 8:00 am Patient Instructions/Handouts: Thrombotic Thrombocytopenic Purpura (DC) Activity/Diet/Wound Care/Special Instructions: Prednisone taper from Hematology sent to patient preferred pharmacy, [facility] Discharge/Stand Alone Forms: Who Do I Call? Discharge Disposition: HOME SELF-CARE
== END 2023-02-11 12:58 | disposition home or self-care (01) | DRG 603 ==
LOC: EC 11:42 → 3SCARD 13:56
PROVIDERS: ADMIT Internal Medicine; ATTEND Internal Medicine
PROC: 30233R1 Transfusion of Nonautologous Platelets into Peripheral Vein, Percutaneous Approach (ICD-10-PCS; 2023-02-08)
PROC: 6A550Z2 Pheresis of Platelets, Single (ICD-10-PCS; principal; 2023-02-09)
DX: L03.116 Cellulitis of left lower limb (principal); D69.3 Immune thrombocytopenic purpura; I48.20 Chronic atrial fibrillation, unspecified; S80.12XA Contusion of left lower leg, initial encounter; D64.9 Anemia, unspecified; D75.9 Disease of blood and blood-forming organs, unspecified; I10 Essential (primary) hypertension; N40.0 Benign prostatic hyperplasia without lower urinary tract symptoms; M79.89 Other specified soft tissue disorders; E78.5 Hyperlipidemia, unspecified; R26.9 Unspecified abnormalities of gait and mobility; H40.9 Unspecified glaucoma; Z96.653 Presence of artificial knee joint, bilateral; I25.2 Old myocardial infarction; Z87.891 Personal history of nicotine dependence; Z86.79 Personal history of other diseases of the circulatory system; Z88.1 Allergy status to other antibiotic agents; Z88.0 Allergy status to penicillin; Z88.2 Allergy status to sulfonamides; Z88.5 Allergy status to narcotic agent; Z79.899 Other long term (current) drug therapy
CPT/HCPCS: 36415; 80048; 80053; 80076; 83883; 84145; 84165; 85025; 85027; 85610; 85730; 86038; 86039; 86334; 86431; 86850; 86900; 86901; 96374; 99285

== ENCOUNTER → 2024-10-09 | Outpatient (CLI) | payer MEDICARE, BC ==
[2024-10-09 13:46] LABS: HCT 37.7 % (39.6-50.0); HGB 12.2 g/dL (13.0-17.0); MCH 29.8 pg (27.0-32.0); MCHC 32.4 g/dL (32.0-37.0); MCV 92.2 FL (80.0-97.0); Mean Platelet Volume 9.9 FL (9.5-12.2); NRBC Per 100 WBC 0 X 10*3/uL (0.00-0.01); Platelet Count 275 X 10*3/uL (140-440); RBC 4.09 X 10*6/uL (4.40-5.60); RDW 13.5 % (11.5-14.5); WBC 5.24 X 10*3/uL (4.50-10.00)
[2024-10-09 14:24] LABS: Blood Urea Nitrogen 22.5 mg/dL (9.0-27.0); Carbon Dioxide 28.2 mmol/L (21.6-31.8); Chloride 104 mmol/L (96-109); Potassium 4.5 mmol/L (3.5-5.5); Sodium 141 mmol/L (135-145)
== END | disposition home or self-care (01) ==
LOC: LABPAT 09:11
PROVIDERS: ATTEND Internal Medicine Clinical Cardiac Electrophysiology
DX: Z01.812 Encounter for preprocedural laboratory examination (principal); I48.0 Paroxysmal atrial fibrillation; I49.5 Sick sinus syndrome
CPT/HCPCS: 80051; 82565; 84520; 85027

== ENCOUNTER 2024-10-11 14:25 | Day surgery (SDC) | payer MEDICARE, BC ==
[2024-10-06 12:53] VITALS: BMI 21.8
[2024-10-11] MEDS: IV FLUID CONTINUATION 1,000 ML IV ONE (14:32)
[2024-10-11] MEDS: SODIUM CHLORIDE 0.9% 1,000 ML IV SCH ×2 (14:37→14:38)
[2024-10-11] MEDS ORDERED: MIDAZOLAM 2 MG/2 ML VIAL ONE (15:00)
[2024-10-11] MEDS ORDERED: PROPOFOL 10 MG/ML 20 ML VIAL IV ONE (15:00)
[2024-10-11] MEDS ORDERED: fentaNYL (PF) 50 MCG/ML 2 ML AMP ONE (15:00)
[2024-10-11 15:24] LABS: Basophils % (A) 0 %; Eosinophils # (A) 0.1 k/uL (0-0.7); Eosinophils % (A) 2 %; HCT 40.4 % (39.0-53.0); HGB 12.7 gm/dL (13.0-17.5); Lymphocytes % (A) 15 %; MCH 29.8 pg (25.0-35.0); MCHC 31.4 g/dL (31.0-37.0); MCV 94.9 fL (80.0-100.0); Mean Platelet Volume 7.1; Monocytes # (A) 0.5 k/uL (0-1.0); Monocytes % (A) 8 %; Neutrophils # (A) 4.7 k/uL (1.3-7.7); Neutrophils % (A) 72 %; Platelet Count 286 k/uL (150-450); RBC 4.25 m/uL (4.30-5.90); RDW 13.1 % (11.5-15.5); WBC 6.6 k/uL (3.8-10.6)
[2024-10-11] MEDS: IOPAMIDOL-370 100ML BTL INJ ONE (15:32)
[2024-10-11 15:39] LABS: ALT 23 U/L (4-49); AST 29 U/L (17-59); African American GFR (CKD) 65 (>60 ml/min/1.73 sqM); Albumin 4.1 g/dL (3.5-5.0); Alkaline Phosphatase 118 U/L (38-126); Anion Gap 5 mmol/L; Blood Urea Nitrogen 23 mg/dL (9-20); Calcium 9.7 mg/dL (8.4-10.2); Carbon Dioxide 27 mmol/L (22-30); Chloride 106 mmol/L (98-107); Glucose 79 mg/dL (74-99); Non-African American GFR(CKD) 56 (>60 ml/min/1.73 sqM); Potassium 4.7 mmol/L (3.5-5.1); Sodium 138 mmol/L (137-145); Total Bilirubin 1.3 mg/dL (0.2-1.3); Total Protein 6.7 g/dL (6.3-8.2)
[2024-10-11] MEDS: LIDOCAINE 1% INJ 10MG/ML (20 ML MDV) SQ ONE ×4 (15:55→17:51)
[2024-10-11] MEDS: HEPARIN SODIUM,PORCINE (1 ML) 2,500 UNIT in SODIUM CHLORIDE 0.9% 250 ML IRRIGATION ONE (15:55)
[2024-10-11] MEDS: ROPIVACAINE 5 MG/ML 30 ML VIAL MISCELLANE ONE ×2 (15:56→16:15)
[2024-10-11] MEDS: ceFAZolin 1 GM in SODIUM CHLORIDE 0.9% IRRIG BTL 250 ML IRRIGATION PRN (16:09)
[2024-10-11] MEDS ORDERED: ACETAMINOPHEN TAB 325 MG TAB PO PRN (17:50)
--- NOTE | 2024-10-11 18:01 | P.EPPROC ---
- EP Procedure Note Electrophysiology Procedure Note: Diagnosis Symptomatic bradycardia, unprovoked, no triggering factors, sick sinus syndrome, prolonged MO interval High risk for increased RV pacing percentage secondary to abnormal AV node function Mild cardiomyopathy Procedure Dual-chamber pacemaker implantation with conduction system pacing (left bundle pacing) Left upper extremity venogram Details Patient was brought to the EP lab in a fasting state. Written informed consent was obtained prior to the procedure. Conscious sedation provided by JOINT C[employer]TER. Left upper extremity venogram performed. Patent left subclavian vein IV antibiotics administered. Local anesthesia administered. A 4 cm incision made in the pectoral area. Subfascial pocket made. Venous accesses obtained Venous sheaths placed. Leads placed in the right heart. 2 sets of pacing cables were used; one for backup temporary pacing and the other for assessment of c urrent of injury and signal analysis. A 52 cm atrial pacing lead was first positioned in the RV apex for temporary pacing during mapping and conduction system pacing Thresholds were interrogated and backup high output pacing was provided This atrial lead was then removed from the right ventricle and later positioned in the right atrial appendage and the permanent lead A deflected sheath was prepped. A coronary sinus decapolar catheter was placed within this sheath. The catheter along with the sheath was then passed into the right heart, the catheter was prolapsed across the tricuspid valve, into the right ventricle and then further into the right ventricular outflow tract across the pulmonic valve into the pulmonary artery. This sheath was slid over this decapolar catheter into the RVOT. Thereafter the catheter last sheath assembly was withdrawn from the RVOT along the septum to the mid septal area. The sheath was appropriately to to map the right ventricular aspect of the septum. The decapolar catheter was withdrawn, the sheath flushed again and the screw-in pacing lead placed within the sheath. Further detailed unipolar pace-mapping of the septum was performed and once the appropriate based morphology was obtained on lead V1, the lead was screwed into the septum. The lead was screwed in 4-5 returns at a time while monitoring the current of injury, the pacing impedance changes and the paced QRS morphology. The stimulus to peak of V6 QRS was measured at each step. Once a QR or rSR pattern of paced QRS in lead V1 was obtained, a left bundle signal was sought. Impedance was measured and thresholds were measured. An impedance drop of 100-200 ohms but above 550 ohms was targeted along with an unchanged vector of the current of injury signal. The final positioning was based on the QRS morphology in lead V1 and a short stimulus to peak of the V6 QRS of less than 90 ms. The sheath was withdrawn, stability of the pacing lead deep in the septum was confirmed on HOPPER and MAYCO views and the sheath was slipped and an adequate heel was provided for the lead. Unipolar and bipolar electrogram morphology obtained Atrial lead positioned in the right atrial appendage. Sensing, thresholds and impedances measured following positioning and securing the lead in the right atrial appendage Left bundle lead parameters: Medtronic model #3830, 69 cm in length R waves 20 mV, pacing impedance 605 ohms and pacing threshold 0.5 V at 0.4 ms QR pattern of paced morphology, stimulus-V6 peak equals 65 ms Atrial lead parameters: 2.1 mV sensing, 950 ohms pacing impedance, pacing threshold 0.5 V at 0.4 ms Medtronic model #5076, 52 cm in length Device inside upholsterer: Medtronic model number W1 DR 01, Steffanie XT DR MRI Dual-chamber pacemaker device connected to the leads and placed in the subfascial pocket Patient tolerated the procedure well without acute complications Pacemaker programming AAIR-DDDR 50-130 with left bundle pacing in the unipolar mode This is a long procedure on account of #1 axillary vein access was difficult No evidence for pneumothorax at the end of the procedure 2. Very tortuous innominate SVC junction requiring placement of long sheath to straighten the tortuosity and placed the leads 3. Difficult RV lead placement #4 left bundle mapping for pacing
--- NOTE | 2024-10-11 18:03 | P.PRLE ---
RE: Rolando Jessica Dear Jassi Mr. Jessica underwent dual-chamber pacemaker with conduction system pacing with left bundle pacing on account of mild cardiomyopathy, sick sinus syndrome with AV node disease. I will now stop amlodipine and switch to Toprol-XL 50 mg p.o. daily for management of cardiomyopathy Thank you for entrusting me with the care of the patient Warm regards Sincerely Max Land
--- NOTE | 2024-10-11 18:21 | P.EPPROC ---
- EP Procedure Note Electrophysiology Procedure Note: Procedure: Loop explant under sedation and local anesthesia. Diagnosis: Loop monitor at [facility] Patient was brought to the EP lab in a fasting state. Written informed consent was obtained prior to the procedure. The subcutaneous device was successfully explanted under local anesthesia. Preoperative antibiotics were administered. The wound was closed in layers and dressed per protocol. Result: Successful loop monitor explantation.
[2024-10-11] MEDS: METOPROLOL SUCCINATE (ER) 50 MG TAB.ER.24H PO SCH (20:12)
[2024-10-11] MEDS: LATANOPROST 0.005% OPHTH DROPS 2.5 ML BTL BOTH EYES SCH (20:12)
[2024-10-11] MEDS: SPIRONOLACTONE 25 MG TAB PO SCH (20:12)
[2024-10-11] MEDS: ATORVASTATIN 40 MG TAB PO SCH (20:12)
[2024-10-11 21:11] LABS: INR 1.1 (<1.2); Prothrombin Time 11.7 sec (10.0-12.5)
[2024-10-11] MEDS: ACETAMINOPHEN IV (For NPO) 1,000 MG in EMPTY BAG 1 BAG IVPB ONE (21:53)
[2024-10-12 08:06] VITALS: BP 176/82; PULSE 48; RESP 18; TEMP 97.5
[2024-10-12] MEDS: FINASTERIDE 5 MG TAB PO SCH (08:33)
[2024-10-12] MEDS: LOSARTAN 50 MG TAB PO SCH (08:33)
[2024-10-12] MEDS: BRIMONIDINE TARTRATE 0.2% DROPS 5 ML BTL BOTH EYES SCH (08:35)
[2024-10-12] MEDS: TIMOLOL 0.5% OPHTH DROPS 5 ML BTL BOTH EYES SCH (08:35)
--- NOTE | 2024-10-12 08:51 | XR ---
EXAMINATION TYPE: XR chest 2V DATE OF EXAM: 10/12/2024 6:34 AM COMPARISON: Chest radiographs from 04/15/2021. CLINICAL INDICATION: Male, 89 years old with history of Lead placement check; TECHNIQUE: XR chest 2V Frontal and lateral views of the chest. FINDINGS: Lungs/Pleura: There is flattening of the diaphragm with increased lucency of the lungs. No evidence o f pneumothorax, pleural effusion or focal consolidation. Pulmonary vascularity: Unremarkable. Heart/mediastinum: Cardiomediastinal silhouette is unremarkable. Two lead cardiac conduction device o verlying the left hemithorax with lead tips projecting over the right ventricle and right atrium. Musculoskeletal: Degenerative changes of the shoulder joints. IMPRESSION: 1. No acute cardiopulmonary disease process. 2. COPD changes. [facility], , 10/12/2024 8:48 AM
--- NOTE | 2024-10-12 14:09 | P.DS ---
Providers Attending physician: Max Land Primary care physician: Stated None Hospital Course: Patient is doing well. No chest discomfort dizziness or lightheadedness Pacemaker site is healed well. Reveal explant site is healed well. No hematoma no bruising no bleeding Blood pressure 115/62 mmHg pulse rate 59 beats a minute Heart sounds are normal no murmur gallop or rub Breath sounds are clear Impression Sick sinus syndrome AV node disease Status post dual-chamber pacemaker with conduction system pacing Chest x-ray normal Interrogation of the device with normal limits Plan Stop amlodipine Continue losartan in the evening 50 mg p.o. daily Start metoprolol succinate 50 mg p.o. daily Follow-up with device clinic postdischarge in about a week Patient Condition at Discharge: Stable Plan - Discharge Summary Discharge Rx Participant: No New Discharge Prescriptions: New Metoprolol Succinate [Toprol XL] 50 mg PO DAILY #90 tab Discontinued amLODIPine [Norvasc] 2.5 mg PO HS No Action Atorvastatin [Lipitor] 40 mg PO HS #30 tab Spironolactone [Aldactone] 25 mg PO HS Cyanocobalamin (Vitamin B-12) [Vitamin B-12] 5,000 mg SUBLINGUAL QAM Triamcinolone 0.025% Cream [Kenalog 0.025% Cream] 1 applic TOPICAL BID PRN PRN Reason: around the eyes Multivitamins, Thera [Multivitamin (formulary)] 1 tab PO QAM Ascorbic Acid [Vitamin C] 500 mg PO QAM Losartan Potassium 50 mg PO QAM Latanoprost/Pf [Latanoprost 0.005% Eye Drop] 1 drop BOTH EYES HS Calcium Carbonate [Tums] 1,000 mg PO QID PRN tab PRN Reason: Heartburn timoloL maleate [timoloL maleate 0.5% Gel] 1 applic BOTH EYES QAM Sodium Chloride 5% Ophth Soln [Bowen 128] 1 drops BOTH EYES QAM PRN PRN Reason: dry eyes Finasteride [Proscar] 5 mg PO QAM Brimonidine Tartrate [Alphagan P 0.2% Ophth Soln] 1 drops BOTH EYES QAM Avatrombopag Maleate [Doptelet] 20 mg PO MOTH Discharge Medication List Atorvastatin [Lipitor] 40 mg PO HS #30 tab 12/28/19 [Rx] Cyanocobalamin (Vitamin B-12) [Vitamin B-12] 5,000 mg SUBLINGUAL QAM 12/05/21 [History] Spironolactone [Aldactone] 25 mg PO HS 12/05/21 [History] Ascorbic Acid [Vitamin C] 500 mg PO QAM 02/08/23 [History] Latanoprost/Pf [Latanoprost 0.005% Eye Drop] 1 drop BOTH EYES HS 02/08/23 [History] Losartan Potassium 50 mg PO QAM 02/08/23 [History] Multivitamins, Thera [Multivitamin (formulary)] 1 tab PO QAM 02/08/23 [History] Triamcinolone 0.025% Cream [Kenalog 0.025% Cream] 1 applic TOPICAL BID PRN 02/08/23 [History] Calcium Carbonate [Tums] 1,000 mg PO QID PRN tab 02/11/23 [Rx] Avatrombopag Maleate [Doptelet] 20 mg PO MOTH 10/06/24 [History] Brimonidine Tartrate [Alphagan P 0.2% Ophth Soln] 1 drops BOTH EYES QAM 10/06/24 [History] Finasteride [Proscar] 5 mg PO QAM 10/06/24 [History] Sodium Chloride 5% Ophth Soln [Bowen 128] 1 drops BOTH EYES QAM PRN 10/06/24 [History] timoloL maleate [timoloL maleate 0.5% Gel] 1 applic BOTH EYES QAM 10/06/24 [History] Metoprolol Succinate [Toprol XL] 50 mg PO DAILY #90 tab 10/11/24 [Rx] Follow up Appointment(s)/Referral(s): Max Land MD [STAFF PHYSICIAN] - 10/18/24 11:00 am (FOLLOW UP APPOINTMENT MADE AT THE DEVICE CLINIC. ) Patient Instructions/Handouts: Pacemaker (DC) Activity/Diet/Wound Care/Special Instructions: PATIENT EDUCATION MATERIAL Instructions following a heart rhythm device implant. 1. Keep dressing DRY for 5 DAYS. You may cover the area with Saran or Cling Wrap, prior to a shower. 2. The dressing will be removed in the Device Clinic at [facility]. Absorbable sutures were used to close the wound. 3. Avoid raising the left arm above the shoulder level. 4 week restriction 4. Avoid arm movements, like backscratching, rubbing the head, or pulling on a cord. 4 weeks restriction 5. Gentle range of motion movements of the shoulder, closest to the incision should be performed to avoid a frozen shoulder. (Pendulum exercises of the shoulder) 6. The opposite arm may be used freely. 7. Avoid driving for 7 days. 8. Avoid activities such as golfing, swimming, weed whacking, lifting more than 10 pounds weight, bowling, gymnastics and weight training/lifting. (6 weeks restriction) 9. Activities such as wood chopping with an axe, pull-ups in the gymnasium, power lifting, arc-welding, being close to home induction cooktops will always be a problem. 10. Arm sling is only a reminder not to raise the arm above the head. You do not need to keep the arm completely immobilized. Your free to move the arm and use it and for normal activities. In case of any problems, please call [facility], [facility], @ [phone], Attention: Device Clinic Device clinic follow-up in 5 days Follow-up with primary intelligence group supervisor in 2-3 months Medication changes Stop amlodipine Start Toprol-XL 50 mg p.o. daily in the morning Take losartan 50 mg p.o. daily as before but in the evening Spironolactone 25 mg in the morning Continue atorvastatin Discharge Disposition: HOME SELF-CARE
== END 2024-10-12 12:26 | disposition home or self-care (01) ==
LOC: CATHEP 14:25 → 6NMEDSUR 17:46 → CATHEP 10-12 12:26
PROVIDERS: ATTEND Internal Medicine Clinical Cardiac Electrophysiology
DX: I49.5 Sick sinus syndrome (principal); I42.9 Cardiomyopathy, unspecified; I48.0 Paroxysmal atrial fibrillation; J44.9 Chronic obstructive pulmonary disease, unspecified; Z79.899 Other long term (current) drug therapy; Z98.890 Other specified postprocedural states
CPT/HCPCS: 33208; 33286; 80053; 84443; 85025; 85610; 71046; C1898; C1785; S0138; J2250; J1644; J0690 ×2; J2003; J3010; J2795; J0131; J2704; Q9967

== ENCOUNTER → 2025-01-24 | Outpatient (CLI) | payer MEDICARE, BC ==
--- NOTE | 2025-01-24 08:27 | CT ---
EXAMINATION TYPE: CT brain wo con DATE OF EXAM: 01/24/2025 8:11 AM COMPARISON: 06/01/2022. CLINICAL INDICATION: Male, 89 years old with history of S09.90XA DIZZINESS AND GIDDINESS, Dizziness a nd recent fall. TECHNIQUE: Brain: Axial CT images of the brain were obtained with coronal and sagittal reformats created and rev iewed. Contrast used: None. Oral contrast used: None. CT DLP: 1184.9 mGycm, Automated exposure control for dose reduction was used. FINDINGS: Brain: Extra-axial spaces: No abnormal extra-axial fluid collections. Ventricular system: Dilatation in proportion to cerebral atrophy. Cerebral parenchyma: Cerebral atrophy. No acute intraparenchymal hemorrhage or mass effect. The lin -white junction is well differentiated. Scattered hypoattenuating areas are seen within the white mat ter. Cerebellum: Remote left cerebellar hemisphere injury similar to 2021. Mass effect: No evidence of midline shift. Intracranial vasculature: Atherosclerotic calcifications of the intracranial vessels. Soft tissues: Normal. Calvarium/osseous structures: No depressed skull fracture. Paranasal sinuses and mastoid air cells: Mild scattered paranasal sinus disease. Visualized orbits: Bilateral aphakia IMPRESSION: 1. No acute intracranial process. 2. Nonspecific white matter changes, likely secondary to chronic small vessel ischemic disease. 3. Remote left cerebellar hemisphere injury [facility], , 01/24/2025 8:24 AM
--- NOTE | 2025-01-24 08:52 | US ---
EXAMINATION TYPE: US carotid duplex BILAT DATE OF EXAM: 01/24/2025 COMPARISON: NONE CLINICAL INDICATION: Male, 89 years old with history of S09.90XA DIZZINESS AND GIDDINESS; dizziness Additional History: R42* Dizziness TECHNIQUE: Grayscale, color Doppler and spectral Doppler evaluation of the bilateral carotid systems and vertebral arteries. Indirect Doppler criteria was utilized. FINDINGS: EXAM MEASUREMENTS: RIGHT: Peak Systolic Velocity (PSV) cm/sec ----- Right CCA: 77.6 ----- Right ICA: 66.7 ----- Right ECA: 90.8 ICA/CCA ratio: 0.9 RIGHT: End Diastole cm/sec ----- Right CCA: 12.6 ----- Right ICA: 15.5 ----- Right ECA: 6.8 LEFT: Peak Systolic Velocity (PSV) cm/sec ----- Left CCA: 87.1 ----- Left ICA: 81.3 ----- Left ECA: 103 ICA/CCA ratio: 0.9 LEFT: End Diastole cm/sec ----- Left CCA: 14.7 ----- Left ICA: 21.1 ----- Left ECA: 6.3 VERTEBRALS (direction of flow): Right Vertebral: Antegrade Left Vertebral: Antegrade Rhythm: Arrhythmia noted on image 14 COMPLIANCE LEAD NOTES: Mild atherosclerotic plaque throughout bilaterally no significant stenosis or elev ated velocities Color Doppler imaging shows patency with blood flow throughout the carotid artery. Spectral waveforms are within normal limits. IMPRESSION: Right: Less than 50% stenosis of the carotid bifurcation. Left: Less than 50% stenosis of the carotid bifurcation. Criteria for Assigning % of Stenosis / Diameter reduction (Estimation based on the indirect measurements of the internal carotid artery velocities (ICA PSV). 1. Normal (no stenosis)=ICA PSV < 125 cm/s: ratio < 2.0: ICA EDV<40 cm/s. 2. Less than 50% stenosis=ICA PSV < 125 cm/s: ratio < 2.0: ICA EDV<40 cm/s. 3. 50 to 69% stenosis=ICA PSV of 125 to 230 cm/s: ration 2.0 ? 4.0: ICA EDV 40-100 cm/s. 4. Greater than 70% stenosis to near occlusion= ICA PSV > 230 cm/s: ratio > 4.0: ICA EDV > 100 cm/s. 5. Near occlusion= ICA PSV velocities may be low or undetectable: variable ratio and ICA EDV. 6. Total occlusion=unable to detect flow. [facility], , 01/24/2025 8:50 AM
== END | disposition home or self-care (01) ==
LOC: RADCTMAIN 07:51
PROVIDERS: ATTEND Family Medicine
DX: S09.90XA Unspecified injury of head, initial encounter (principal); R42 Dizziness and giddiness; R90.82 White matter disease, unspecified; I65.23 Occlusion and stenosis of bilateral carotid arteries
CPT/HCPCS: 70450; 93880